=== PATIENT | female | born 1965 | race Caucasian/White ===

== ENCOUNTER → 2018-10-26 15:03 | Outpatient (CLI) | payer OTHER, SELFPAY ==
--- NOTE | 2018-10-26 15:10 | XR_ITS ---
EXAM: XR lumbar spine 2-3V HISTORY: ITS.REASON: Back pain ORDERING PHYSICIAN: Cash Eric PATIENT AGE: 53 years COMPARISON: None FINDINGS: Normal alignment. There is mild degenerative disc disease at L4-L5 and L5-S1. Small nature osteophyte also present at T12 and L3. No fracture or dislocation. No lytic or blastic change. IMPRESSION: Mild degenerative disc disease L4-5 and L5-S1
== END ==
PROVIDERS: PCP Emergency Medicine; Visit Provider Nurse Practitioner Family
DX: M54.5 Low back pain (principal)
CPT/HCPCS: 72100

== ENCOUNTER 2018-11-13 13:01 | Outpatient (RCR) | payer OTHER, SELFPAY ==
--- NOTE | 2018-11-13 14:25 | HMH.PTOPEV ---
PT Outpatient Evaluation Rehab PT Outpatient Evaluation Start: 11/13/18 13:11 Freq: Status: Active Protocol: Document 11/13/18 14:12 TEALAUREL (Rec: 11/13/18 14:24 NORBERT [id number]) Electronically Signed By Ming Mcleod, PT 11/13/18 14:12 Outpatient Therapy Subjective History Subjective History Patient is a 53 year old female presenting to outpatient PT with reports of chronic low back pain with RLE radicular symptoms down to the R foot. Pt reports hx of lumbar discectomy surgery in 2002. She reports previous rx includes acupuncture, physical therapy and massage therapy that has provided minimal relief. Pt experienced inc radicular symptoms with both lumbar flexion and extension, but main complaint is pain with sitting/bending/ lifting activities. Chief Complaint Pain,Stiff,Paresthesia, Weakness Symptom Type Ache,Throb,Sharp,Dull,Numbness ,Tingling Symptoms Relieved By Rest/Positioning Symptoms Aggravated By Sitting,Bending/Stooping, Lifting Prior Functional Limitations Lifting,Sitting,Bending/ Stooping Current Functional Limitations Lifting,Sitting,Bending/ Stooping Symptom Description Constant but Variable Level of pain today (0-10) 6 Pain scale - at its best (0-10) 4 Pain scale - at its worst (0-10) 9 Lumbopelvic Eval Posture Thoracic Spine Posture Standing Position Increased Kyphosis Lumbar Spine Posture Standing Position Decreased Lordosis Assistive device Assistive Devices None / NA Palapation tenderness bilateral lumbar spinal tenderness Yes: 3/4 paraspinal tenderness Yes: 3/4 buttock tenderness Yes: 2/4 Accessory Movement L2 right L3 right L4 right L5 right S1 right Range of Motion Lumbar Spine Active Flexion Range of 68 inc radic Motion (degrees) Lumbar Spine Active Extension Range of 12 inc radic Motion (degrees) Left Lumbar Spine Lateral Flexion Active 18 Range of Motion (degrees) Right Lumbar Spine Lateral Flexion 22 Active Range of Motion (degrees)
== END 2018-11-13 13:05 | disposition home or self-care (01) ==
LOC: PT 13:01
PROVIDERS: Visit Provider Nurse Practitioner Family
DX: M54.41 Lumbago with sciatica, right side (principal)
CPT/HCPCS: 97163

== ENCOUNTER 2020-02-19 21:06 | Emergency (ER) | payer MEDICAID, SELFPAY ==
[2020-02-19 21:23] VITALS: BP 162/99; PULSE 120; RESP 16; TEMP 36.8; O2SAT 97; BMI 28.3
[2020-02-19 21:30] VITALS: BP 119/83; PULSE 116; RESP 18; O2SAT 98
--- NOTE | 2020-02-19 21:32 | CT_ITS ---
PROCEDURE: CT ABDOMEN PELVIS W CON CLINICAL INDICATION: LLQ pain the Left lower quadrant pain with nausea, vomiting, diarrhea COMPARISON: No exams were available for comparison TECHNIQUE: IV Contrast: 75ML OPTIRAY 350 Oral Contrast None Axial images obtained with sagittal and coronal reformats. All CT scans at the facility use one or more dose reduction, viz: automated exposure control, ma/kV adjustment per patient size (including targeted exams where dose is matched to indication, i.e. head), or iterative reconstruction technique. FINDINGS: LOWER THORAX: No acute finding ABDOMEN & PELVIS: There is diffuse fatty liver infiltration with hepatomegaly. Liver measures 26 cm in transverse dimension. The spleen, adrenal glands, and pancreas have an unremarkable appearance. Gallbladder is somewhat distended. There is right renal cortical scarring. No renal or ureteral calculi. No hydronephrosis. No evidence of appendicitis or diverticulitis. No intestinal obstruction or free air. No acute bony anomalies. IMPRESSION: 1. Severe fatty liver with hepatomegaly. 2. Mildly distended gallbladder 3. Cortical scarring of the right kidney Dictated b Yoshi Thornton MD 02/20/2020 08:50 Yoshi Thornton MD in [place] 02/20/2020 08:50
[2020-02-19 21:41] LABS: Microscopic, Urine URINE MICROSCOPIC (MICROSCOPIC)
[2020-02-19 21:50] LABS: Appearance,Urine CLEAR (Clear); Basophils # 0.1 K/mm3 (0-0.2); Basophils % 1.1 % (0.1-2.0); Bilirubin,Urine Negative (Negative); Blood, Urine 1+ (Negative); Color,Urine YELLOW (Yellow); Eosinophils # 0.2 K/mm3 (0.0-0.4); Eosinophils % 1.3 % (0.1-12.0); Glucose,Urine (UA) Negative (Negative); Hemoglobin 15.8 g/dL (12.2-16.2); Ketones,Urine Negative (Negative); Leukocyte Esterase,Urine TRACE (Negative); Lymphocytes # 2.5 K/mm3 (0.7-4.5); Lymphocytes % 20.7 % (10-50); Mean Corpuscular HGB Conc 33.7 g/dL (31.8-35.4); Mean Corpuscular Hemoglobin 34.3 pg (27.0-31.2); Mean Corpuscular Volume 101.7 fl (81-99); Mean Platelet Volume 8.6 fl (7.4-10.4); Monocytes # 0.6 K/mm3 (0.1-1.0); Monocytes % 5.2 % (1.7-9.3); Neutrophils # 8.8 K/mm3 (1.8-7.8); Neutrophils % 71.7 % (37.0-80.0); Nitrate,Urine Negative (Negative); PH,Urine 7.5 (5.0-8.5); Platelet Count 284 K/mm3 (142-424); Protein,Urine Negative (Negative); Red Blood Count 4.62 M/mm3 (4.20-5.40); Red Cell Distribution Width 14.2 % (11.5-17.5); Specific Gravity, Urine <= 1.005 (1.005-1.030); Urobilinogen,Urine 0.2 EU/dl (0.2); White Blood Count 12.3 K/mm3 (4.8-10.8)
[2020-02-19 21:51] LABS: Alanine Aminotransferase 112 U/L (12-78); Albumin Level 4.2 g/dl (3.5-5.0); Albumin/Globulin Ratio 1.1 (1.1-1.8); Alkaline Phosphatase 255 U/L (38-126); Amylase 86 U/L (30-110); Anion Gap 18.7 mEq/L (5-15); Aspartate Amino Transferase 294 U/L (14-36); Blood Urea Nitrogen 4 mg/dl (7-17); Calcium 9.5 mg/dl (8.4-10.2); Carbon Dioxide 31 mmol/L (22.0-30.0); Chloride 91 mmol/L (98-107); Creatinine Clearance Estimated 108 mL/min (50-200); Estimated Glomerular Filt Rate 88 ml/min (>60); GFR (African American) 106 ML/MIN (>60); Globulin 3.7 g/dL (1.3-3.2); Glucose 97 mg/dl (74-100); Lipase 276 U/L (23-300); Sodium 138 mmol/L (136-145); Total Protein,Serum 7.9 g/dl (6.3-8.2)
[2020-02-19 21:52] LABS: Ethyl Alcohol 163 mg/dl (0-10); Potassium 2.7 mmoL/L (3.5-5.1)
[2020-02-19 21:55] LABS: Mucus,Urine 1+ /lpf; RBC,Urine Occasional #/hpf (0-3); WBC,Urine Occasional #/hpf (0-3)
[2020-02-19 22:01] LABS: Amphetamine/Metha Screen,Urine Negative ng/ml (<1000); Barbiturates Screen,Urine Negative ng/ml (<200)
[2020-02-19 22:02] LABS: Benzodiazepines Screen,Urine Positive ng/ml (<200)
--- NOTE | 2020-02-19 22:02 | HMH.EDNVD ---
ED Disposition Clinical Impression: Hypokalemia, Transaminitis Abdominal pain Qualifiers: Abdominal location: epigastric Qualified Code(s): R10.13 - Epigastric pain Alcohol intoxication Qualifiers: Complication of substance-induced condition: uncomplicated Qualified Code(s): F10.920 - Alcohol use, unspecified with intoxication, uncomplicated Disposition: Home, Self-Care Condition on Discharge: Good Instructions: DI for Acute Abdomen Additional Instructions: stop alcohol and stop motrin and call pcp for follow up Referrals: PCP,No [Primary Care Provider] - - Critical Care Critical Care Time: No Attestation: On 02/19/20, the high probability of a clinically significant, sudden or life threatening deterioration of the following system(s) required my full and direct attention, intervention and personal management. The time I documented below is in addition to time spent performing reported procedures but includes the following listed in this critical care notation. Medical Decision Making - Medical Records Medical records reviewed: Yes: I reviewed the patient's medical records. - Sen Inquiry Pt receiving controlled substance: No Vital Signs: 02/19/20 21:23 02/19/20 21:30 Temperature 98.3 F Temperature Source Oral Pulse Rate [Right] 120 H 116 H Respiratory Rate 16 18 Blood Pressure [Right Arm] 162/99 H 119/83 Blood Pressure Mean [Right Arm] 120 95 Blood Pressure Source [Right Arm] Automatic Cuff Automatic Cuff Blood Pressure Position [Right Arm] Sitting Supine 02 Sat by Pulse Oximetry 97 98 Oxygen Delivery Method Room Air Room Air - Lab Data Lab results reviewed: Yes: I reviewed the patient's lab results. Lab Results 02/19/20 21:15: Urine Color Yellow, Urine Appearance Clear, Urine pH 7.5, Ur Specific [place] <= 1.005, Urine Protein Negative, Urine Glucose (UA) Negative, Urine Ketones Negative, Urine Blood 1+, Urine Nitrate Negative, Urine Bilirubin Negative, Urine Urobilinogen 0.2, Ur Leukocyte Esterase Trace, Urine RBC Occasional, Urine WBC Occasional, Ur Squamous Epith Cells 10-20, Urine Mucus 1+ 02/19/20 21:15: WBC 12.3 H, RBC 4.62, Hgb 15.8, Hct 47.0, MCV 101.7 H, MCH 34.3 H, MCHC 33.7, RDW 14.2, Plt Count 284, MPV 8.6, Neut % (Auto) 71.7, Lymph % (Auto) 20.7, [place] % (Auto) 5.2, Eos % (Auto) 1.3, Baso % (Auto) 1.1, Neut # (Auto) 8.8 H, Lymph # (Auto) 2.5, [place] # (Auto) 0.6, Eos # (Auto) 0.2, Baso # (Auto) 0.1, ESR 16 02/19/20 21:15: Sodium 138, Potassium 2.7 L*, Chloride 91 L, Carbon Dioxide 31 H, Anion Gap 18.7 H, BUN 4 L, Creatinine 0.70, Estimated Creat Clear 108, Estimated GFR 88, Est GFR ( Amer) 106, Glucose 97, Calcium 9.5, Total Bilirubin 1.0, AST 294 H, ALT 112 H, Alkaline Phosphatase 255 H, C-Reactive Protein 21.0 H, Total Protein 7.9, Albumin 4.2, Globulin 3.7 H, Albumin/Globulin Ratio 1.1, Amylase 86, Lipase 276 02/19/20 21:15: Urine Opiates Screen Positive H, Urine Methadone Screen Negative, Ur Barbituates Screen Negative, Ur Phencyclidine Scrn Negative, Ur Amphetamines Screen Negative, U Benzodiazepines Scrn Positive H, Urine Cocaine Screen Negative, U Marijuana (THC) Screen Positive H 02/19/20 21:15: Plasma/Serum Alcohol 163 H 02/19/20 21:25: Magnesium 1.8 Result diagrams: 02/19/20 21:15 02/19/20 21:15 Orders (Tests/Meds): ED MEDICATIONS Generic Name Dose Route Start Last Admin Trade Name Freq PRN Reason Stop Dose Admin Sodium Chloride 1,000 mls @ 999 mls/hr 02/19/20 21:45 02/19/20 22:19 Sod Chlor 0.9% 1000ml Bag IV 02/19/20 22:45 999 mls/hr .Q1H1M NICOLE Administration Sodium Chloride 8 ml 02/19/20 21:32 Sodium Chloride 0.9% 10ml Vial IV 03/20/20 21:31 NEEDED PRN dilute pepcid Discontinued Medications Generic Name Dose Route Start Last Admin Trade Name Freq PRN Reason Stop Dose Admin Famotidine 20 mg 02/19/20 21:32 02/19/20 22:18 Pepcid 20mg/2ml Vial IV 02/19/20 21:33 20 mg ONCE ONE Administration Ioversol 75 ml 0
[2020-02-19 22:03] LABS: Cannabinoid Screen,Urine Positive ng/ml (<50); Cocaine Screen,Urine Negative ng/ml (<300)
[2020-02-19 22:04] LABS: Methadone Screen,Urine Negative ng/ml (<300)
[2020-02-19 22:05] LABS: Opiate Screen,Urine Positive ng/ml (<300); Phencyclidine Screen,Urine Negative ng/ml (<25)
[2020-02-19 22:24] LABS: Magnesium 1.8 mg/dl (1.6-2.3)
[2020-02-19 22:39] LABS: Erythrocyte Sedimentation Rate 16 mm/hr (0-30)
[2020-02-19 23:01] VITALS: BP 126/72; PULSE 98; RESP 16; TEMP 36.8; O2SAT 98
== END 2020-02-19 23:07 | disposition home or self-care (01) ==
PROVIDERS: Emergency Provider Emergency Medicine
DX: E87.6 Hypokalemia (principal); R74.0 Nonspecific elevation of levels of transaminase and lactic acid dehydrogenase [LDH]; F10.920 Alcohol use, unspecified with intoxication, uncomplicated; I10 Essential (primary) hypertension; F41.9 Anxiety disorder, unspecified; F17.210 Nicotine dependence, cigarettes, uncomplicated; Z79.899 Other long term (current) drug therapy
CPT/HCPCS: 74177; 80053; 80305; 81001; 82150; 83690; 83735; 85025; 85651; 86140; 96365; 96375; 99284; J2405; Q9967

== ENCOUNTER 2020-04-26 17:39 | Emergency (ER) | payer MEDICAID, SELFPAY ==
--- NOTE | 2020-04-26 17:33 | ECG_ITS ---
APPROVED REPORT Exam: Resting ECG HR:107 bpm ECG Measurements Heart Rate 107 AXES [place] 150 P 54 QRSd 76 QRS 43 QT 354 T 54 QTc 472 Conclusion Sinus tachycardia Otherwise normal ECG Electronically signed by : Wesley Rebolledo, 04/30/2020 09:46:28
[2020-04-26 17:40] VITALS: BP 140/83; PULSE 109; RESP 18; TEMP 36.9; O2SAT 97; BMI 30.1
--- NOTE | 2020-04-26 17:42 | XR_ITS ---
PROCEDURE: XR CHEST PORTABLE CLINICAL HISTORY: CP Chest pain COMPARISON: No exams were available for comparison FINDINGS: The cardiomediastinal silhouette and pulmonary vascularity are within normal limits. The lungs are clear without infiltrates, suspicious nodules, or pleural effusions. There is an old left 5th rib fracture. IMPRESSION: No acute findings. Dictated by: Yoshi Thornton MD 04/27/2020 05:42 Yoshi Thornton MD in [place] 04/27/2020 05:42
--- NOTE | 2020-04-26 17:42 | HMH.EDGENADL ---
ED Disposition Clinical Impression: Hypokalemia Chest pain Qualifiers: Chest pain type: unspecified Qualified Code(s): R07.9 - Chest pain, unspecified Disposition: Home, Self-Care Condition on Discharge: Good Instructions: DI for Atypical Chest Pain Additional Instructions: Take magnesium and potassium as prescribed. Follow a regular diet. Take nonsteroidal anti-inflammatory drugs for any pain. Immediate return if recurrent pain, shortness of breath, nausea/vomiting, other concerning symptoms. Prescriptions: Magnesium Oxide [Mag-Ox 400mg Tab] 400 mg PO BID 2 Days #4 tab Transmission Status: Pending to [facility] Potassium Chloride 40 meq PO DAILY 3 Days #6 tablet.er Transmission Status: Pending to [facility] Referrals: Osvaldo Tsang MD [Primary Care Provider] - - Critical Care Critical Care Time: No Attestation: On , the high probability of a clinically significant, sudden or life threatening deterioration of the following system(s) required my full and direct attention, intervention and personal management. The time I documented below is in addition to time spent performing reported procedures but includes the following listed in this critical care notation. Medical Decision Making - Medical Records Medical records reviewed: Yes: I reviewed the patient's medical records. - Sen Inquiry Pt receiving controlled substance: No Vital Signs: 04/26/20 17:40 04/26/20 18:51 Temperature 98.4 F Temperature Source Oral Pulse Rate [Right Radial] 109 H 96 H Respiratory Rate 18 Blood Pressure [Right Arm] 140/83 114/79 Blood Pressure Mean [Right Arm] 102 90 Blood Pressure Source [Right Arm] Automatic Cuff Automatic Cuff Blood Pressure Position [Right Arm] Sitting Sitting 02 Sat by Pulse Oximetry 97 100 Oxygen Delivery Method Room Air Room Air - Lab Data Lab Results 04/26/20 17:41: WBC 14.3 H, RBC 3.74 L, Hgb 12.8, Hct 40.0, MCV 106.8 H, MCH 34.2 H, MCHC 32.0, RDW 15.7, Plt Count 454 H, MPV 7.8, Neut % (Auto) 83.4 H, Lymph % (Auto) 8.9 L, [place] % (Auto) 4.8, Eos % (Auto) 2.2, Baso % (Auto) 0.7, Neut # (Auto) 12.0 H, Lymph # (Auto) 1.3, [place] # (Auto) 0.7, Eos # (Auto) 0.3, Baso # (Auto) 0.1 04/26/20 17:41: Sodium 135 L, Potassium 2.5 L*, Chloride 94 L, Carbon Dioxide 27, Anion Gap 16.5 H, BUN 7, Creatinine 0.70, Estimated Creat Clear 114, Estimated GFR 88, Est GFR ( Amer) 106, Glucose 119 H, Calcium 10.2, Troponin I < 0.01 04/26/20 17:41: D-Dimer 0.42 04/26/20 17:41: Magnesium 1.5 L Result diagrams: 04/26/20 17:41 04/26/20 17:41 Orders (Tests/Meds): ED MEDICATIONS Discontinued Medications Generic Name Dose Route Start Last Admin Trade Name Freq PRN Reason Stop Dose Admin Ketorolac Tromethamine 15 mg 04/26/20 17:47 04/26/20 18:17 Ketorolac 30mg/Ml Vial IV 04/26/20 17:48 15 mg ONCE ONE Administration Potassium Chloride 40 meq 04/26/20 18:11 04/26/20 18:14 Potassium Chloride 20meq Tab PO 04/26/20 18:12 40 meq ONCE ONE Administration ORDERS Category Date Time Status XR chest portable Stat Exams 04/26/20 17:42 Taken Troponin I Q3H Lab 04/26/20 20:45 Ordered Troponin I Q3H Lab 04/26/20 23:45 Ordered - ECG Data Tracing #1 I reviewed this ECG and interpreted as documented below: EKG demonstrates sinus tachycardia at a rate of 107 bpm; no acute ST elevation/depression; QTC 472 ms; QRS 76 ms Medical Decision Narrative: Patient presents the emergency department with chest pain. EKG obtained immediately upon arrival demonstrates no acute ST elevation/depression. Suspicion for ACS is rather low. No aspirin administered at this time. She does have reproducible chest pain so costochondritis is on the differential but other more urgent/emergent diagnoses considered including ACS versus pulmonary embolus versus aortic etiology versus pneumothorax versus anemia. Cardiac enzyme test will be obtained to ensure no subendocardial i
[2020-04-26 17:52] LABS: Basophils # 0.1 K/mm3 (0-0.2); Basophils % 0.7 % (0.1-2.0); Eosinophils # 0.3 K/mm3 (0.0-0.4); Eosinophils % 2.2 % (0.1-12.0); Hemoglobin 12.8 g/dL (12.2-16.2); Lymphocytes # 1.3 K/mm3 (0.7-4.5); Lymphocytes % 8.9 % (10-50); Mean Corpuscular Hemoglobin 34.2 pg (27.0-31.2); Mean Corpuscular Volume 106.8 fl (81-99); Mean Platelet Volume 7.8 fl (7.4-10.4); Monocytes # 0.7 K/mm3 (0.1-1.0); Monocytes % 4.8 % (1.7-9.3); Neutrophils % 83.4 % (37.0-80.0); Platelet Count 454 K/mm3 (142-424); Red Blood Count 3.74 M/mm3 (4.20-5.40); Red Cell Distribution Width 15.7 % (11.5-17.5); White Blood Count 14.3 K/mm3 (4.8-10.8)
[2020-04-26 18:00] LABS: Anion Gap 16.5 mEq/L (5-15); Blood Urea Nitrogen 7 mg/dl (7-17); Calcium 10.2 mg/dl (8.4-10.2); Carbon Dioxide 27 mmol/L (22.0-30.0); Chloride 94 mmol/L (98-107); Creatinine Clearance Estimated 114 mL/min (50-200); Estimated Glomerular Filt Rate 88 ml/min (>60); GFR (African American) 106 ML/MIN (>60); Glucose 119 mg/dl (74-100); Sodium 135 mmol/L (136-145)
[2020-04-26 18:04] LABS: D-Dimer 0.42 ug/mL (0.15-8.0)
[2020-04-26 18:10] LABS: Potassium 2.5 mmoL/L (3.5-5.1)
--- NOTE | 2020-04-26 18:10 | PC.NURSE ---
notified ER of critical potassium level
[2020-04-26 18:14] LABS: Troponin I < 0.01 ng/ml (0.00-0.034)
[2020-04-26 18:24] LABS: Magnesium 1.5 mg/dl (1.6-2.3)
[2020-04-26 18:51] VITALS: BP 114/79; PULSE 96; O2SAT 100
--- NOTE | 2020-04-26 20:26 | CT_ITS ---
PROCEDURE: CT ABDOMEN PELVIS W CON CLINICAL INDICATION: epigastric pain COMPARISON: CT CT ABDOMEN PELVIS W CON from 02/19/2020 TECHNIQUE: IV Contrast: 75ML OPTIRAY 350 Oral Contrast None Axial images obtained with sagittal and coronal reformats. All CT scans at the facility use one or more dose reduction, viz: automated exposure control, ma/kV adjustment per patient size (including targeted exams where dose is matched to indication, i.e. head), or iterative reconstruction technique. FINDINGS: LOWER THORAX: No acute finding ABDOMEN & PELVIS: Diffuse fatty liver infiltration with hepatomegaly. The liver measures 21 cm cephalad caudad and 25 cm transverse. The spleen has an unremarkable appearance. The pancreas and adrenal glands are unremarkable. There is diffuse bilateral renal cortical lobulation greater on the right compared to the left which may represent renal scarring. No renal or ureteral calculi or hydronephrosis. No radiopaque gallstones. No intestinal obstruction or free air. No evidence of appendicitis. There are few scattered colonic diverticula but no evidence of diverticulitis. There is some mild thickening of the sigmoid colon. No acute bony findings. No pelvic mass or abnormal fluid collection.. IMPRESSION: 1. Mild thickened sigmoid colon which could be due to nondistention or mild colitis. 2. Hepato megaly with diffuse fatty liver. Dictated by: Yoshi Thornton MD 04/27/2020 06:19 Yoshi Thornton MD in [place] 04/27/2020 06:19
[2020-04-26 20:56] LABS: Coronavirus 19 IgG Antibody Negative (Negative); Coronavirus 19 IgM Antibody Negative (Negative)
[2020-04-26 21:18] LABS: Troponin I < 0.01 ng/ml (0.00-0.034)
[2020-04-26 21:27] LABS: Amylase 68 U/L (30-110)
[2020-04-26 21:28] LABS: Alanine Aminotransferase 73 U/L (12-78); Albumin Level 3.4 g/dl (3.5-5.0); Alkaline Phosphatase 312 U/L (38-126); Aspartate Amino Transferase 193 U/L (14-36); Bilirubin,Direct 0.4 mg/dl (0.0-0.4); Bilirubin,Indirect 0.5 mg/dL (0.0-0.9); Bilirubin,Total 0.9 mg/dl (0.2-1.3); Bilirubin,Unconjugated 0.4 mg/dL (0.0-1.1); Total Protein,Serum 6.6 g/dl (6.3-8.2)
[2020-04-26 21:38] LABS: Lipase 651 U/L (23-300)
[2020-04-26 22:02] VITALS: BP 110/73; PULSE 100; RESP 16; TEMP 36.9; O2SAT 100
== END 2020-04-26 22:05 | disposition home or self-care (01) ==
PROVIDERS: Emergency Provider Emergency Medicine; PCP Emergency Medicine
DX: K85.90 Acute pancreatitis without necrosis or infection, unspecified (principal); E87.6 Hypokalemia; R07.9 Chest pain, unspecified; I10 Essential (primary) hypertension; F41.9 Anxiety disorder, unspecified; F17.210 Nicotine dependence, cigarettes, uncomplicated; Z01.84 Encounter for antibody response examination
CPT/HCPCS: 36415; 71045; 74177; 80048; 80076; 82150; 83690; 83735; 84484; 85025; 85378; 86328; 93005; 96374; 96375; 99283; Q9967

== ENCOUNTER 2020-05-10 16:12 | Observation (INO) | payer MEDICAID, SELFPAY ==
--- NOTE | 2020-05-10 16:22 | CT_ITS ---
PROCEDURE: CT HEAD/BRAIN WO CON CLINICAL INDICATION: headache Headache COMPARISON: CT HDWO CT HEAD W/O CONTRAST from 01/15/2014 TECHNIQUE: Axial images obtained. All CT scans at the facility use one or more dose reduction, viz: automated exposure control, ma/kV adjustment per patient size (including targeted exams where dose is matched to indication, i.e. head), or iterative reconstruction technique. FINDINGS: No midline shift, mass effect, intracranial hemorrhage, hydrocephalus, or extra-axial fluid collection is evident. There is mild cortical volume loss. In the roof of the 3rd ventricle there is an ovoid 6 mm hyperdensity consistent with a colloid cyst. No hydronephrosis. The calvarium has an unremarkable appearance. No mastoid effusion. Small air-fluid level is present in the sphenoid sinus on the left. There is a defect within the medial wall the left orbit consistent with an old fracture. IMPRESSION: 1. No acute intracranial finding . 2. 6 mm colloid cyst. No hydronephrosis. 3. Air-fluid level in the sphenoid sinus on the left Dictated by: Yoshi Thornton MD 05/11/2020 06:34 Yoshi Thornton MD in [place] 05/11/2020 06:34
--- NOTE | 2020-05-10 16:22 | CT_ITS ---
PROCEDURE: CT ABDOMEN PELVIS WO CON CLINICAL INDICATION: upper abd pain Upper abdominal pain COMPARISON: CT CT ABDOMEN PELVIS W CON from 04/26/2020 TECHNIQUE: Axial images obtained with sagittal and coronal reformats. All CT scans at the facility use one or more dose reduction, viz: automated exposure control, ma/kV adjustment per patient size (including targeted exams where dose is matched to indication, i.e. head), or iterative reconstruction technique. FINDINGS: LOWER THORAX: No acute finding ABDOMEN & PELVIS: There is diffuse fatty liver infiltration with hepatomegaly. In the left hepatic lobe anteriorly there is a 9 mm area of focal decreased attenuation. A similar 8 mm area of decreased attenuation is present in the right hepatic lobe. The gallbladder is distended. The spleen, adrenal glands, pancreas, and kidneys have an unremarkable appearance. No intestinal obstruction or free air. No evidence of appendicitis. There are few colonic diverticula but no evidence of diverticulitis. There are degenerative changes in the lumbar spine. IMPRESSION: 1. Hepatomegaly with fatty liver with 2 foci of decreased attenuation which may be due to more prominent areas of fatty infiltration or space-occupying lesions. MRI may provide further evaluation without and with enhancement. 2. Hydropic gallbladder 3. Other nonacute findings as described above. Dictated by: Yoshi Thornton MD 05/11/2020 06:26 Yoshi Thornton MD in [place] 05/11/2020 06:26
[2020-05-10 16:25] VITALS: BP 124/84; PULSE 109; RESP 17; TEMP 36.6; O2SAT 99; BMI 28.5
--- NOTE | 2020-05-10 16:26 | HMH.EDGENADL ---
ED Disposition Clinical Impression: Dehydration Abdominal pain Qualifiers: Abdominal location: upper abdomen, unspecified Qualified Code(s): R10.10 - Upper abdominal pain, unspecified Disposition: Admitted As Inpatient Condition on Discharge: Good Referrals: Osvaldo Tsang MD [Primary Care Provider] - - Critical Care Critical Care Time: No Attestation: On 05/10/20, the high probability of a clinically significant, sudden or life threatening deterioration of the following system(s) required my full and direct attention, intervention and personal management. The time I documented below is in addition to time spent performing reported procedures but includes the following listed in this critical care notation. Medical Decision Making - Medical Records Medical records reviewed: Yes: I reviewed the patient's medical records. - Sen Inquiry Pt receiving controlled substance: No Vital Signs: 05/10/20 16:25 05/10/20 17:08 Temperature 97.8 F Temperature Source Oral Pulse Rate [Right Brachial] 109 H 103 H Respiratory Rate 17 Blood Pressure [Right Arm] 124/84 125/90 Blood Pressure Mean [Right Arm] 97 101 Blood Pressure Source [Right Arm] Automatic Cuff Automatic Cuff Blood Pressure Position [Right Arm] Sitting Sitting 02 Sat by Pulse Oximetry 99 99 Oxygen Delivery Method Room Air Room Air - Lab Data Lab results reviewed: Yes: I reviewed the patient's lab results. Lab Results 05/10/20 16:43: WBC 14.2 H, RBC 3.53 L, Hgb 12.6, Hct 37.0, MCV 104.9 H, MCH 35.6 H, MCHC 33.9, RDW 16.1, Plt Count 394, MPV 8.0, Neut % (Auto) 89.4 H, Lymph % (Auto) 6.0 L, [place] % (Auto) 3.6, Eos % (Auto) 0.7, Baso % (Auto) 0.3, Neut # (Auto) 12.7 H, Lymph # (Auto) 0.9, [place] # (Auto) 0.5, Eos # (Auto) 0.1, Baso # (Auto) 0.1, Total Counted 100, Neutrophils % (Manual) 91 H, Lymphocytes % (Manual) 5 L, Monocytes % (Manual) 3, Eosinophils % (Manual) 1, Platelet Estimate Normal, Anisocytosis 1+, Macrocytosis 1+ 05/10/20 16:43: Sodium 135 L, Potassium 2.5 L*, Chloride 92 L, Carbon Dioxide 28, Anion Gap 17.5 H, BUN 3 L, Creatinine 0.70, Estimated Creat Clear 108, Estimated GFR 88, Est GFR ( Amer) 106, Glucose 138 H, Calcium 9.6, Total Bilirubin 1.3, AST 227 H, ALT 78, Alkaline Phosphatase 365 H, Troponin I < 0.01, Total Protein 7.4, Albumin 3.9, Globulin 3.5 H, Albumin/Globulin Ratio 1.1, Lipase 279 05/10/20 16:43: SARS-CoV-2 IgG Ab (Rapid) Negative, SARS-CoV-2 IgM Ab (Rapid) Negative Result diagrams: 05/10/20 16:43 05/10/20 16:43 Orders (Tests/Meds): ED MEDICATIONS Generic Name Dose Route Start Last Admin Trade Name Freq PRN Reason Stop Dose Admin Acetaminophen 650 mg 05/10/20 17:44 Acetaminophen 325mg Tab PO 06/09/20 17:43 Q4HP PRN As Needed for Fever or Pain Sodium Chloride 1,000 mls @ 999 mls/hr 05/10/20 17:15 05/10/20 17:17 Sod Chlor 0.9% 1000ml Bag IV 05/10/20 18:15 999 mls/hr .Q1H1M NICOLE Administration Sodium Chloride 1,000 mls @ 100 mls/hr 05/10/20 17:45 Sod Chlor 0.9% 1000ml Bag IV 06/09/20 17:44 .Q10H NICOLE Ketorolac Tromethamine 30 mg 05/10/20 17:44 Ketorolac 30mg/Ml Vial IV 05/15/20 17:43 Q6HP PRN Moderate Pain Nicotine 21 mg 05/10/20 17:44 Nicotine 21mg/24hr Patch TD 06/09/20 17:43 DAILYP PRN Nicotine Cravings Ondansetron HCl 4 mg 05/10/20 17:44 Ondansetron 4mg/2ml Vial IV 06/09/20 17:43 Q8HP PRN Nausea Pantoprazole Sodium 40 mg 05/11/20 09:00 Pantoprazole 40mg Tablet PO 06/10/20 08:59 DAILY NICOLE Sodium Chloride 8 ml 05/10/20 16:23 05/10/20 17:00 Sodium Chloride 0.9% 10ml Vial IV 06/09/20 16:22 8 ml NEEDED PRN Administration dilute pepcid Triamterene/HCTZ 1 each 05/11/20 09:00 Hctz 25mg/Triamterene 37.5mg Tablet PO 06/10/20 08:59 DAILY NICOLE Discontinued Medications Generic Name Dose Route Start Last Admin Trade Name Freq PRN Reason Stop Dose Admin Famotidine 20 mg
--- NOTE | 2020-05-10 16:32 | ECG_ITS ---
APPROVED REPORT Exam: Resting ECG HR:105 bpm ECG Measurements Heart Rate 105 AXES ID 148 P 61 QRSd 80 QRS 44 QT 380 T 56 QTc 502 Conclusion Sinus tachycardia Possible Left atrial enlargement Borderline ECG Electronically signed by : Wesley Rebolledo, 05/11/2020 05:35:00
--- NOTE | 2020-05-10 16:37 | XR_ITS ---
PROCEDURE: XR CHEST PORTABLE CLINICAL HISTORY: epigastric pain Chest pain COMPARISON: CR XR CHEST PORTABLE from 04/26/2020 FINDINGS: The cardiomediastinal silhouette and pulmonary vascularity are within normal limits. The lungs are clear without infiltrates, suspicious nodules, or pleural effusions. Well-circumscribed calcific density is noted along the superior aspect of the left acromion nonspecific IMPRESSION: No acute findings. Dictated by: Yoshi Thornton MD 05/10/2020 19:18 Yoshi Thornton MD in [place] 05/10/2020 19:18
--- NOTE | 2020-05-10 16:43 | PC.NURSE ---
pt gone to rad
[2020-05-10 16:51] LABS: Basophils # 0.1 K/mm3 (0-0.2); Basophils % 0.3 % (0.1-2.0); Eosinophils # 0.1 K/mm3 (0.0-0.4); Eosinophils % 0.7 % (0.1-12.0); Hemoglobin 12.6 g/dL (12.2-16.2); Lymphocytes # 0.9 K/mm3 (0.7-4.5); Mean Corpuscular HGB Conc 33.9 g/dL (31.8-35.4); Mean Corpuscular Hemoglobin 35.6 pg (27.0-31.2); Mean Corpuscular Volume 104.9 fl (81-99); Monocytes # 0.5 K/mm3 (0.1-1.0); Monocytes % 3.6 % (1.7-9.3); Neutrophils # 12.7 K/mm3 (1.8-7.8); Neutrophils % 89.4 % (37.0-80.0); Platelet Count 394 K/mm3 (142-424); Red Blood Count 3.53 M/mm3 (4.20-5.40); Red Cell Distribution Width 16.1 % (11.5-17.5); White Blood Count 14.2 K/mm3 (4.8-10.8)
[2020-05-10 16:54] LABS: Chloride 92 mmol/L (98-107)
[2020-05-10 16:55] LABS: MANUAL DIFFERENTIAL MANUAL DIFFERENTIAL (MANUAL DIFF); Sodium 135 mmol/L (136-145)
[2020-05-10 16:57] LABS: Alanine Aminotransferase 78 U/L (12-78); Alkaline Phosphatase 365 U/L (38-126); Aspartate Amino Transferase 227 U/L (14-36); Bilirubin,Total 1.3 mg/dl (0.2-1.3); Blood Urea Nitrogen 3 mg/dl (7-17); Creatinine Clearance Estimated 108 mL/min (50-200); Estimated Glomerular Filt Rate 88 ml/min (>60); GFR (African American) 106 ML/MIN (>60)
[2020-05-10 16:58] LABS: Albumin Level 3.9 g/dl (3.5-5.0); Albumin/Globulin Ratio 1.1 (1.1-1.8); Anion Gap 17.5 mEq/L (5-15); Calcium 9.6 mg/dl (8.4-10.2); Carbon Dioxide 28 mmol/L (22.0-30.0); Globulin 3.5 g/dL (1.3-3.2); Glucose 138 mg/dl (74-100); Lipase 279 U/L (23-300); Total Protein,Serum 7.4 g/dl (6.3-8.2)
[2020-05-10 17:05] LABS: Potassium 2.5 mmoL/L (3.5-5.1)
--- NOTE | 2020-05-10 17:07 | PC.NURSE ---
ER notified of critical potassium
[2020-05-10 17:08] VITALS: BP 125/90; PULSE 103; O2SAT 99
--- NOTE | 2020-05-10 17:08 | PC.NURSE ---
Pt returned from rad.
[2020-05-10 17:23] LABS: Troponin I < 0.01 ng/ml (0.00-0.034)
[2020-05-10 17:27] LABS: Anisocytosis 1+; Eosinophils % 1 % (0-3); Lymphocytes % 5 % (10-50); Macrocytosis 1+; Monocytes % 3 % (2-9); Neutrophils % 91 % (42-76); Platelet Estimate Normal; Total Cells Counted 100
[2020-05-10 17:37] LABS: Coronavirus 19 IgG Antibody Negative (Negative); Coronavirus 19 IgM Antibody Negative (Negative)
--- NOTE | 2020-05-10 17:51 | PC.NURSE ---
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
[2020-05-10 18:04] VITALS: BP 110/78; PULSE 108; O2SAT 100
[2020-05-10 18:14] VITALS: BP 110/78; PULSE 105; RESP 17; TEMP 36.6; O2SAT 100
[2020-05-10 18:30] VITALS: BP 116/86; PULSE 106; RESP 20; TEMP 36.9; O2SAT 100; BMI 28.3
--- NOTE | 2020-05-10 19:13 | PC.NURSE ---
report given to dorina
[2020-05-10 20:00] VITALS: BP 111/66; PULSE 107; RESP 19; TEMP 36.8; O2SAT 99
[2020-05-10 21:03] LABS: Ethyl Alcohol < 10 mg/dl (0-10)
[2020-05-10 22:02] LABS: Microscopic, Urine URINE MICROSCOPIC (MICROSCOPIC)
[2020-05-10 22:08] LABS: Appearance,Urine CLEAR (Clear); Bilirubin,Urine Negative (Negative); Blood, Urine 1+ (Negative); Color,Urine YELLOW (Yellow); Glucose,Urine (UA) Negative (Negative); Ketones,Urine Negative (Negative); Leukocyte Esterase,Urine TRACE (Negative); Nitrate,Urine POSITIVE (Negative); Protein,Urine Negative (Negative); Specific Gravity, Urine 1.015 (1.005-1.030)
[2020-05-10 22:16] LABS: Benzodiazepines Screen,Urine Negative ng/ml (<200)
[2020-05-10 22:17] LABS: Amphetamine/Metha Screen,Urine Negative ng/ml (<1000)
[2020-05-10 22:18] LABS: Barbiturates Screen,Urine Negative ng/ml (<200); Cannabinoid Screen,Urine Positive ng/ml (<50)
[2020-05-10 22:19] LABS: Cocaine Screen,Urine Negative ng/ml (<300); Methadone Screen,Urine Negative ng/ml (<300)
[2020-05-10 22:20] LABS: Opiate Screen,Urine Negative ng/ml (<300)
[2020-05-10 22:21] LABS: Phencyclidine Screen,Urine Negative ng/ml (<25)
[2020-05-10 23:05] LABS: Bacteria,Urine 3+ /lpf
--- NOTE | 2020-05-10 23:11 | HMH.HP ---
*Admission Date: 05/10/20 *Chief complaint: abd pain *History of present illness: this pt presented to the [facility] office with abd pain -she had been in the [facility] ed a few weeks ago with abd pain but declined admit at that time- she has since had daily pain with no melena and dec po intake - she feels weak and reports abd pain has increased - pt was seen in the ed - Past medical history significant for hypertension, current smoker who presents to the emergency department for upper abdominal pain over the last several weeks. The pain is worse at night when she lies down. She does not regularly take a PPI or H2 crystal and has never been specifically diagnosed with GERD or gastritis. She has episodes of nausea in association with the abdominal pain. The pain will radiate up into her chest sometimes, again worse at night. Also complains of headache that primarily occurs at night. She has complaints of a cold sensation in her feet at night as well has general aches and pains throughout her lower extremities all the time. There did not seem to be any other exacerbating or alleviating factors other than her symptoms being worse at night. He saw Dr. Tsang today who sent her to the admission for further testing and admission. Of note, patient is prescribed potassium, but has not been taking this medication. pt was admitted for eval and treatment [facility] History I have reviewed the patient's past medical history: Yes Medical History: Reports:: Anxiety, Hypertension Denies:: Cancer, Chronic Obstructive Pulmonary Disease (COPD), Diabetes Mellitus Type 1, Diabetes Mellitus Type 2, Hepatitis, Internal Pacemaker, Pulmonary Embolism, Seizures, Transient Ischemic Attacks (TIA), Urinary Tract Infection *Have you ever received a pneumonia vaccine?: No *Have you received a flu vaccine this season?: No Other Medical History: Reports: Arthritis, Sinus Problems Laterality Cases: Left: Arthroscopy Shoulder, Bilateral: Other Other Surgeries: Yes: Other (back surgery). No: Pacemaker Amputation: No Fractures: No - *Social History Last grade of school completed: GED Smoking Status: Current every day smoker Tobacco Type: cigarettes # Packs/Day (cigarettes): 1 Alcohol Intake: former Alcohol Intake Frequency:: other Substance Use Type: marijuana, opiates, prescription drug, former substance user *Occupational Status:: unemployed Housing: house Household Members: none *Travel in the last 8 weeks: None - Psychiatric History Pschychiatric History:: Reports:: Anxiety Family Hx:: Unable to obtain Review of Systems - Review of Systems Review of systems:: pertinent systems reviewed and negative unless documented below - Constitutional Denies fever(s) - Eyes Denies change in vision - ENT Denies sore throat - *Cardiovascular Denies chest pain at rest - *Respiratory Denies cough - *Gastrointestinal Reports abdominal pain, Reports nausea - *Genitourinary Denies blood in urine - *Musculoskeletal Denies joint pain - Integumentary/Breasts Denies rash - *Neurologic Denies localized weakness - Psychiatric Denies anxiety Meds Home Medications Medication Instructions Recorded Confirmed Type Triamterene/Hydrochlorothiazid 1 tab PO DAILY 05/10/20 05/10/20 History [Maxzide-25 tablet] Allergies Allergy/AdvReac Type Severity Reaction Status Date / Time No Known Allergies Allergy Verified 05/10/20 15:34 Exam Vital signs and Labs for Last 24 Hours: Temp Pulse Resp BP Pulse Ox 98.2 F 107 H 19 111/66 99 05/10/20 20:00 05/10/20 20:00 05/10/20 20:00 05/10/20 20:00 05/10/20 20:00 Laboratory Results - last 24 hr 05/10/20 16:43: WBC 14.2 H, RBC 3.53 L, Hgb 12.6, Hct 37.0, MCV 104.9 H, MCH 35.6 H, MCHC 33.9, RDW 16.1, Plt Count 394, MPV 8.0, Neut % (Auto) 89.4 H, Lymph % (Auto) 6.0 L, [place] % (Auto) 3.6, Eos % (Auto) 0.7, Baso % (Auto) 0.3, Neut # (Auto) 12.7 H, Lymph # (Auto) 0.9, [place] # (Auto) 0.5, Eos # (Auto) 0.1,
[2020-05-11 02:11] LABS: Lactic Acid 1.8 mmol/L (0.7-2.1)
--- NOTE | 2020-05-11 03:59 | PC.NURSE ---
Pt is A&Ox4 and has ambulated with staff x1 assist several times this shift and pt tolerated fair d/t unsteady balance a times. Pt has c/o ABD pain 2x, medicated per SEP. Pt has c/o nausea and experienced several episodes of vomiting ~ 2hr after intake of water and chicken broth. Zofran administered as available. Ativan IV administered x2 d/t anxiety this shift. Lungs CTA. ABD is soft, non-tender, with active BS and slightly distended. 1 small, soft BM this shift. TEDS refused. NS infusing to 20g peripheral IV to LAC. Dr. Tsang notified of pt's UA being Nitrate positive and +3 Bacteria on micro. placed new order for Rocephin, blood cultures and Lactic obtained prior to administration of ABX per sepsis protocol. HR has been slightly elevated this shift but RRR. No edema noted. Small scab noted to left knee. Call light within reach, bed alarm in use for safety, and will continue to monitor.
[2020-05-11 04:10] VITALS: BP 110/73; PULSE 94; RESP 18; TEMP 36.6; O2SAT 92
[2020-05-11 05:09] VITALS: BMI 28.5
[2020-05-11 07:06] LABS: Chloride 102 mmol/L (98-107); Potassium 3.2 mmoL/L (3.5-5.1); Sodium 134 mmol/L (136-145)
[2020-05-11 07:09] LABS: Alanine Aminotransferase 58 U/L (12-78); Albumin Level 3.7 g/dl (3.5-5.0); Albumin/Globulin Ratio 1.1 (1.1-1.8); Alkaline Phosphatase 339 U/L (38-126); Anion Gap 12.2 mEq/L (5-15); Aspartate Amino Transferase 181 U/L (14-36); Bilirubin,Total 1.1 mg/dl (0.2-1.3); Blood Urea Nitrogen 4 mg/dl (7-17); Carbon Dioxide 23 mmol/L (22.0-30.0); Creatinine Clearance Estimated 127 mL/min (50-200); Estimated Glomerular Filt Rate 105 ml/min (>60); GFR (African American) 127 ML/MIN (>60); Globulin 3.4 g/dL (1.3-3.2); Glucose 154 mg/dl (74-100); Total Protein,Serum 7.1 g/dl (6.3-8.2)
[2020-05-11 07:10] LABS: Magnesium 1.6 mg/dl (1.6-2.3)
--- NOTE | 2020-05-11 07:25 | HMH.PHAVTE ---
[facility] Pharmacy VTE Monitoring - Patient Demographics Admission date: 05/10/20 Report Date: 05/11/20 Time: 07:25 Allergies/Adverse Reactions: Patient Allergies No Known Allergies Allergy (Verified 05/10/20 15:34) Height: 1.6 m Weight: 73.085 kg Patient Problems: Current Active Problems Abdominal pain (Acute) Hypokalemia (Acute) Transaminitis (Acute) Dehydration (Acute) UTI (urinary tract infection) (Acute) SIRS (systemic inflammatory response syndrome) (Acute) Overweight (BMI 25.0-29.9) (Acute) Tobacco use (Acute) - VTE Risk Labs: VTE Related Lab Results Hgb 12.6 g/dL (12.2-16.2) 05/10/20 16:43 Hct 37.0 % (37.0-47.0) 05/10/20 16:43 Plt Count 394 K/mm3 (142-424) 05/10/20 16:43 BUN 3 mg/dl (7-17) L 05/10/20 16:43 Creatinine 0.70 mg/dl (0.52-1.04) 05/10/20 16:43 Estimated Creat Clear 108 mL/min (50-200) 05/10/20 16:43 VTE Score: 3 VTE Risk Level: Low Risk - Prophylaxis VTE Prophylaxis Ordered?: Yes Types of VTE Prophylaxis: TEDS Knee High Location of Applied Device: Bilateral Lower Extremeties
--- NOTE | 2020-05-11 07:25 | HMH.PHAINT ---
MEDICATION RECONCILIATION COMPLETED ON PATIENT USING EXTERNAL FILL HISTORY FROM PHARMACY. -KARINE XAVIER, JOJOD
[2020-05-11 08:00] VITALS: BP 98/62; PULSE 88; RESP 20; TEMP 36.7; O2SAT 100
--- NOTE | 2020-05-11 08:00 | CA_ITS ---
APPROVED REPORT EXAM: Comprehensive 2D, Doppler, and color-flow Echocardiogram Huller Operator: Tami Coronado CRT Ht: 5 ft 3 in Wt: 160lbs BSA: 1.76 BP: 120/70 mmHg Indications: Chest Pain, Hypertension/HDD, + marijuana use, smoker 2D Dimensions LVOT 1.86 cm (M/F) 1.5-2.5 M-Mode Dimensions RVDd 2.80 cm (0.9-2.6) LA Diam 3.67 cm (1.9-4.0) LVDd 2.97 cm (3.5-5.7) Ao Diam 3.01 cm (2.0-3.7) LVDs 1.10 cm (3.5-5.7) IVSd 0.70 cm (0.6-1.1) PWd 0.80 cm (0.6-1.1) EF (Teich) 92.10% FS 63.00% EDV (Teich) 34.20 mL ESV (Teich) 2.70 mL LV Diastology E Decel Time 150.00 (160-240 msec) E/A Ratio 0.72 MED E' 8.90 (< 7 cm/sec) E'/MED E' Ratio 6.56 (>14) LAT E' 9.20 (<10 cm/sec) E/LAT E' Ratio 6.35 (>14) Aortic Valve AO Peak GR. 7.30 mmHg Mitral Valve MV E Max Grey. 58.00 (40-130 cm/s) MV A Velocity 82.00 (40-130 cm/s) E/A Ratio 0.72 MV Decel. Time 150.00 (160-240 ms) MV PHT 44.00 ms Pulmonary Valve PV Peak Velocity 56.00 (50-150 cm/s) Tricuspid Valve TR P. Velocity 129.00 cm/s RAP Estimate 10.00 mmHg RVSP 16.60 mmHg Left Ventricle Left atrium is mildly enlarged, left ventricle is normal size, mild concentric left ventricular hypertrophy, visually estimated ejection fraction 55% with no regional wall motion abnormality, grade 1 diastolic dysfunction seen without tissue Doppler evidence of raise left atrial pressure. Right Ventricle Right atrium and right ventricle are mildly enlarged with normal contractility. Aortic Valve Aortic valve is minimally thickened and fibrosed, there is no aortic stenosis or aortic insufficiency. Mitral Valve Mitral valve is grossly normal, there is mild mitral regurgitation. Tricuspid Valve Tricuspid valve grossly normal, there is mild tricuspid regurgitation. Pulmonic Valve Pulmonic valve is poorly visualized. Great Vessels Aortic root is normal size. Pericardium No significant pericardial effusion noted. Conclusion 1. Mild biatrial enlargement, normal left ventricular size, mild concentric left ventricular hypertrophy, visually estimated ejection fraction 55% with no regional wall motion abnormality, grade 1 diastolic dysfunction seen without tissue Doppler evidence of raise left atrial pressure. 2. Mild mitral and tricuspid regurgitation. 3. No significant pericardial effusion noted. Electronically signed by : Carlos Manuel Galan, 05/11/2020 16:07:38
--- NOTE | 2020-05-11 08:00 | US_ITS ---
PROCEDURE: US GALLBLADDER CLINICAL INDICATION: abd pain Abdominal pain, distended gallbladder COMPARISON: CT CT ABDOMEN PELVIS WO CON from 05/10/2020 FINDINGS: Pancreas: Pancreas is not well delineated due to overlying bowel gas. CT or MRI without and with contrast with pancreatic protocol may provide further evaluation if clinically desired. Liver: Diffuse increased echogenicity of the liver with poor through transmission of sound consistent with hepatic steatosis. No focal liver lesion demonstrated. There is appropriate direction of blood flow within non dilated portal vein. There is poor through transmission of sound of the liver Right kidney: Unremarkable appearing. No hydronephrosis. Gallbladder: The gallbladder is distended at 11 cm. Common bile duct is normal at 5 mm. There is questionable minimal amount of pericholecystic fluid . Study is limited secondary to the diffuse fatty liver infiltration and 4 through transmission of sound. No gallstones are evident. IMPRESSION: Enlarged gallbladder with questionable minimal pericholecystic fluid. No gallstones. Diffuse fatty liver infiltration Dictated by: Yoshi Thornton MD 05/11/2020 10:44 Yoshi Thornton MD in OV 05/11/2020 10:44
[2020-05-11 08:29] LABS: Basophils # 0.1 K/mm3 (0-0.2); Basophils % 0.4 % (0.1-2.0); Eosinophils # 0.1 K/mm3 (0.0-0.4); Eosinophils % 0.8 % (0.1-12.0); Hematocrit 36.5 % (37.0-47.0); Hemoglobin 11.9 g/dL (12.2-16.2); Lymphocytes # 1.4 K/mm3 (0.7-4.5); Lymphocytes % 9.9 % (10-50); Mean Corpuscular HGB Conc 32.5 g/dL (31.8-35.4); Mean Corpuscular Hemoglobin 34.7 pg (27.0-31.2); Mean Corpuscular Volume 106.6 fl (81-99); Mean Platelet Volume 9.7 fl (7.4-10.4); Monocytes # 0.6 K/mm3 (0.1-1.0); Neutrophils % 84.9 % (37.0-80.0); Platelet Count 398 K/mm3 (142-424); Red Blood Count 3.43 M/mm3 (4.20-5.40); Red Cell Distribution Width 16.3 % (11.5-17.5); White Blood Count 14.2 K/mm3 (4.8-10.8)
--- NOTE | 2020-05-11 08:55 | HMH.ACPN2 ---
Internal Medicine - PN: Subj *Date: 05/11/20 *Time: 08:20 Interval history: pt states she has had abd pain for 2 weeks. Pt states she drank a pint of jagermester a day. has cut back for 2 weeks due to abd pain and nausea. Exam Vital signs and Labs for Last 24 Hours: Temp Pulse Resp BP Pulse Ox 98.0 F 88 20 89/53 L 100 05/11/20 08:00 05/11/20 08:00 05/11/20 08:00 05/11/20 08:00 05/11/20 08:00 Laboratory Results - last 24 hr 05/10/20 16:43: WBC 14.2 H, RBC 3.53 L, Hgb 12.6, Hct 37.0, MCV 104.9 H, MCH 35.6 H, MCHC 33.9, RDW 16.1, Plt Count 394, MPV 8.0, Neut % (Auto) 89.4 H, Lymph % (Auto) 6.0 L, [place] % (Auto) 3.6, Eos % (Auto) 0.7, Baso % (Auto) 0.3, Neut # (Auto) 12.7 H, Lymph # (Auto) 0.9, [place] # (Auto) 0.5, Eos # (Auto) 0.1, Baso # (Auto) 0.1, Total Counted 100, Neutrophils % (Manual) 91 H, Lymphocytes % (Manual) 5 L, Monocytes % (Manual) 3, Eosinophils % (Manual) 1, Platelet Estimate Normal, Anisocytosis 1+, Macrocytosis 1+ 05/10/20 16:43: Sodium 135 L, Potassium 2.5 L*, Chloride 92 L, Carbon Dioxide 28, Anion Gap 17.5 H, BUN 3 L, Creatinine 0.70, Estimated Creat Clear 108, Estimated GFR 88, Est GFR ( Amer) 106, Glucose 138 H, Calcium 9.6, Total Bilirubin 1.3, AST 227 H, ALT 78, Alkaline Phosphatase 365 H, Troponin I < 0.01, Total Protein 7.4, Albumin 3.9, Globulin 3.5 H, Albumin/Globulin Ratio 1.1, Lipase 279 05/10/20 16:43: SARS-CoV-2 IgG Ab (Rapid) Negative, SARS-CoV-2 IgM Ab (Rapid) Negative 05/10/20 16:43: Plasma/Serum Alcohol < 10 05/10/20 21:45: Urine Color Yellow, Urine Appearance Clear, Urine pH 8.0, Ur Specific [place] 1.015, Urine Protein Negative, Urine Glucose (UA) Negative, Urine Ketones Negative, Urine Blood 1+, Urine Nitrate Positive, Urine Bilirubin Negative, Urine Urobilinogen 1.0, Ur Leukocyte Esterase Trace, Urine WBC 5-10, Ur Squamous Epith Cells 5-10, Urine Bacteria 3+ 05/10/20 21:45: Urine Opiates Screen Negative, Urine Methadone Screen Negative, Ur Barbituates Screen Negative, Ur Phencyclidine Scrn Negative, Ur Amphetamines Screen Negative, U Benzodiazepines Scrn Negative, Urine Cocaine Screen Negative, U Marijuana (THC) Screen Positive H 05/11/20 00:00: Lactate 1.8 05/11/20 06:43: Magnesium 1.6 05/11/20 06:43: WBC 14.2 H, RBC 3.43 L, Hgb 11.9 L, Hct 36.5 L, MCV 106.6 H, MCH 34.7 H, MCHC 32.5, RDW 16.3, Plt Count 398, MPV 9.7, Neut % (Auto) 84.9 H, Lymph % (Auto) 9.9 L, [place] % (Auto) 4.0, Eos % (Auto) 0.8, Baso % (Auto) 0.4, Neut # (Auto) 12.0 H, Lymph # (Auto) 1.4, [place] # (Auto) 0.6, Eos # (Auto) 0.1, Baso # (Auto) 0.1 05/11/20 06:43: Sodium 134 L, Potassium 3.2 L D, Chloride 102, Carbon Dioxide 23, BUN 4 L D, Creatinine 0.60, Glucose 154 H, Total Bilirubin 1.1, AST 181 H, ALT 58 D, Alkaline Phosphatase 339 H, Total Protein 7.1, Albumin 3.7 I & O for Last 24 hours: Intake & Output 05/08/20 05/09/20 05/10/20 05/11/20 11:59 11:59 11:59 11:59 Intake Total 410 / 410 Output Total 830 / 830 Balance -420 / -420 Weight 161 lb 2 oz - Constitutional no acute distress - *Routine HEENT Exam Head: Present: normocephalic Eye: Present: PERRL ENT: Present: mucous membranes moist - *Routine Neck Exam Present: supple. Absent: lymphadenopathy - *Routine Respiratory Exam Present: CTA bilaterally - *Routine Cardiovascular Exam Present: RRR - *Routine Abdominal Exam Present: soft, normoactive bowel sounds. Absent: tenderness - *Routine Extremities Exam Present: normal capillary refill. Absent: cyanosis, clubbing, edema - *Routine Skin Exam Present: warm. Absent: rash - *Routine Neurological Exam Present: alert, oriented X3 - Routine Psychiatric Exam Present: normal affect Assessment and Plan (1) Abdominal pain Status: Acute Qualifiers: Abdominal location: right upper quadrant Qualified Code(s): R10.11 - Right upper quadrant pain Category: Medical Code(s): R10.9 - Unspecified abdominal pain (2) UTI (urinary tract infection) Status: Acute
[2020-05-11 10:07] VITALS: BP 98/62
--- NOTE | 2020-05-11 10:07 | SW/DCPLANNER ---
I have spoke with this patient regarding discharge plans. Patient stated that she resides at home alone but her son checks on her often. Patient stated that her son assist her with going to the grocery. Patient currently has no in home services and does not feel she needs them at this time. I also spoke with patient regarding alcohol resources: AA meetings in [place], outpatient services, inpatient resources and my card with info to call me if she has any further questions. Patient has no further needs at this time. Patient stated that she may discharge home later today.
[2020-05-11 10:38] LABS: Ammonia 44 umol/L (9-30)
[2020-05-11 12:47] LABS: Calcium 8.6 mg/dl (8.4-10.2)
[2020-05-11 15:25] VITALS: BP 90/68; PULSE 90; RESP 16; TEMP 36.7; O2SAT 100
[2020-05-11 19:22] VITALS: BP 112/74; PULSE 95; RESP 16; TEMP 37; O2SAT 100
--- NOTE | 2020-05-11 19:55 | PC.NURSE ---
pt c/o abd pain, prn med given with desired effect. pt does express some concern about US and not being able to eat or drink. md ordered a clear liquid diet. at shift report pt reports vomiting after consuming her liquids too fast. educated pt on this. vss. will cont. to monitor.
[2020-05-11 20:15] VITALS: PULSE 95; RESP 16; O2SAT 100
[2020-05-12 03:31] VITALS: BP 107/72; PULSE 101; RESP 16; TEMP 36.8; O2SAT 100
[2020-05-12 05:00] VITALS: BMI 29.0
--- NOTE | 2020-05-12 05:15 | PC.NURSE ---
shift summary, pt has complained of N/V and abdominal pain, PRN meds given with desired effect achieved, VSS
[2020-05-12 07:16] LABS: Basophils % 0.4 % (0.1-2.0); Eosinophils # 0.2 K/mm3 (0.0-0.4); Eosinophils % 2.6 % (0.1-12.0); Hematocrit 31.9 % (37.0-47.0); Hemoglobin 10.4 g/dL (12.2-16.2); Lymphocytes # 1.2 K/mm3 (0.7-4.5); Lymphocytes % 15.1 % (10-50); Mean Corpuscular HGB Conc 32.6 g/dL (31.8-35.4); Mean Corpuscular Hemoglobin 35.8 pg (27.0-31.2); Mean Corpuscular Volume 109.8 fl (81-99); Mean Platelet Volume 8.8 fl (7.4-10.4); Monocytes # 0.3 K/mm3 (0.1-1.0); Monocytes % 3.7 % (1.7-9.3); Neutrophils # 6.1 K/mm3 (1.8-7.8); Neutrophils % 78.2 % (37.0-80.0); Platelet Count 245 K/mm3 (142-424); Red Blood Count 2.91 M/mm3 (4.20-5.40); Red Cell Distribution Width 16.3 % (11.5-17.5); White Blood Count 7.8 K/mm3 (4.8-10.8)
[2020-05-12 07:21] LABS: Chloride 103 mmol/L (98-107)
[2020-05-12 07:22] LABS: Sodium 135 mmol/L (136-145)
[2020-05-12 07:23] LABS: Potassium 2.5 mmoL/L (3.5-5.1)
[2020-05-12 07:25] LABS: Anion Gap 9.5 mEq/L (5-15); Blood Urea Nitrogen 3 mg/dl (7-17); Calcium 8.1 mg/dl (8.4-10.2); Carbon Dioxide 25 mmol/L (22.0-30.0); Creatinine Clearance Estimated 128 mL/min (50-200); Estimated Glomerular Filt Rate 105 ml/min (>60); GFR (African American) 127 ML/MIN (>60); Glucose 108 mg/dl (74-100)
[2020-05-12 08:00] VITALS: BP 94/54; PULSE 95; RESP 16; TEMP 36.6; O2SAT 97
[2020-05-12 09:00] VITALS: PULSE 95; RESP 16; O2SAT 97
--- NOTE | 2020-05-12 09:31 | HMH.GSCON ---
*Admission Date: 05/10/20 *Reason for consult:: Biliary disease *History of present illness: This is a 52-year-old female seen in consultation from the service of Dr. Tsang for evaluation regarding gallbladder disease. She presents the emergency department with increasing abdominal pain (mostly in the epigastric region). No fevers. No jaundice. She does state that over the past few weeks she has had fairly significant pain in the upper abdomen with some radiation to the back. Some associated nausea. She states that her nausea is worse with food intake. A CT scan at the time of admission did reveal a somewhat distended gallbladder. An ultrasound has been completed and final read per radiology is pending. Forwarded from admission H&P: this pt presented to the [facility] office with abd pain -she had been in the [facility] ed a few weeks ago with abd pain but declined admit at that time- she has since had daily pain with no melena and dec po intake - she feels weak and reports abd pain has increased - pt was seen in the ed - Past medical history significant for hypertension, current smoker who presents to the emergency department for upper abdominal pain over the last several weeks. The pain is worse at night when she lies down. She does not regularly take a PPI or H2 crystal and has never been specifically diagnosed with GERD or gastritis. She has episodes of nausea in association with the abdominal pain. The pain will radiate up into her chest sometimes, again worse at night. Also complains of headache that primarily occurs at night. She has complaints of a cold sensation in her feet at night as well has general aches and pains throughout her lower extremities all the time. There did not seem to be any other exacerbating or alleviating factors other than her symptoms being worse at night. He saw Dr. Tsang today who sent her to the admission for further testing and admission. Of note, patient is prescribed potassium, but has not been taking this medication. pt was admitted for eval and treatment Review of Systems - Constitutional Reports anorexia - Eyes Denies change in vision - ENT Denies difficulty swallowing - *Cardiovascular Denies shortness of breath - *Respiratory Denies cough - *Gastrointestinal Reports abdominal pain, Reports nausea - *Genitourinary Denies painful urination - *Musculoskeletal Denies deformity - Integumentary/Breasts Denies new lesions - *Neurologic Denies localized weakness - Psychiatric Denies anxiety - Endocrine Denies cold intolerance - Hematologic/Lymphatic Denies easy bleeding [facility] History Medical History: Reports:: Anxiety, Hypertension Denies:: Cancer, Chronic Obstructive Pulmonary Disease (COPD), Diabetes Mellitus Type 1, Diabetes Mellitus Type 2, Hepatitis, Internal Pacemaker, Pulmonary Embolism, Seizures, Transient Ischemic Attacks (TIA), Urinary Tract Infection *Have you ever received a pneumonia vaccine?: No *Have you received a flu vaccine this season?: No Other Medical History: Reports: Arthritis, Sinus Problems Laterality Cases: Left: Arthroscopy Shoulder, Bilateral: Other Other Surgeries: Yes: Other (back surgery). No: Pacemaker Amputation: No Fractures: No - *Social History Last grade of school completed: GED Smoking Status: Current every day smoker Tobacco Type: cigarettes # Packs/Day (cigarettes): 1 Alcohol Intake: former Alcohol Intake Frequency:: other Substance Use Type: marijuana, opiates, prescription drug, former substance user *Occupational Status:: unemployed Housing: house Household Members: none *Travel in the last 8 weeks: None - Psychiatric History Pschychiatric History:: Reports:: Anxiety Family Hx:: Unable to obtain Meds Home Medications Medication Instructions Recorded Confirmed Type Triamterene/Hydrochlorothiazid 1 tab PO DAILY 05/10/20 05/10/20 History [Maxzide-25 tablet] Allergies Allergy/AdvReac Type Severity Reaction
--- NOTE | 2020-05-12 09:32 | HMH.ACPN2 ---
Internal Medicine - PN: Subj *Date: 05/12/20 *Time: 08:00 Interval history: pt states she vomited all night, but requesting to go home Exam Vital signs and Labs for Last 24 Hours: Temp Pulse Resp BP Pulse Ox 97.9 F 95 H 16 94/54 L 97 05/12/20 08:00 05/12/20 08:00 05/12/20 08:00 05/12/20 08:00 05/12/20 08:00 Laboratory Results - last 24 hr 05/10/20 21:45: Urine Color Yellow, Urine Appearance Clear, Urine pH 8.0, Ur Specific [place] 1.015, Urine Protein Negative, Urine Glucose (UA) Negative, Urine Ketones Negative, Urine Blood 1+, Urine Nitrate Positive, Urine Bilirubin Negative, Urine Urobilinogen 1.0, Ur Leukocyte Esterase Trace, Urine WBC 5-10, Ur Squamous Epith Cells 5-10, Urine Bacteria 3+ 05/11/20 06:43: Anion Gap 12.2, Estimated Creat Clear 127, Estimated GFR 105, Est GFR ( Amer) 127, Calcium 8.6 D, Globulin 3.4 H, Albumin/Globulin Ratio 1.1 05/11/20 10:23: Ammonia 44 H 05/12/20 06:55: WBC 7.8 D, RBC 2.91 L, Hgb 10.4 L, Hct 31.9 L, MCV 109.8 H, MCH 35.8 H, MCHC 32.6, RDW 16.3, Plt Count 245 D, MPV 8.8, Neut % (Auto) 78.2, Lymph % (Auto) 15.1, [place] % (Auto) 3.7, Eos % (Auto) 2.6, Baso % (Auto) 0.4, Neut # (Auto) 6.1, Lymph # (Auto) 1.2, [place] # (Auto) 0.3, Eos # (Auto) 0.2, Baso # (Auto) 0.0 05/12/20 06:55: Sodium 135 L, Potassium 2.5 L* D, Chloride 103, Carbon Dioxide 25, Anion Gap 9.5, BUN 3 L, Creatinine 0.60, Estimated Creat Clear 128, Estimated GFR 105, Est GFR ( Amer) 127, Glucose 108 H, Calcium 8.1 L I & O for Last 24 hours: Intake & Output 05/09/20 05/10/20 05/11/20 05/12/20 11:59 11:59 11:59 11:59 Intake Total 410 / 410 1896 Output Total 830 / 830 Balance -420 / -420 1896 Weight 161 lb 2 oz 163 lb 8 oz Microbiology Reports for the Last 24 Hours: Microbiology 05/10/20 21:45 Urine,Clean Catch Urine Culture - Preliminary Gram Negative Rods - Constitutional no acute distress - *Routine HEENT Exam Head: Present: normocephalic Eye: Present: PERRL ENT: Present: mucous membranes moist - *Routine Neck Exam Present: supple. Absent: lymphadenopathy - *Routine Respiratory Exam Present: CTA bilaterally - *Routine Cardiovascular Exam Present: RRR - *Routine Abdominal Exam Present: soft, normoactive bowel sounds, tenderness - *Routine Extremities Exam Present: normal capillary refill. Absent: cyanosis, clubbing, edema - *Routine Skin Exam Present: warm. Absent: rash - *Routine Neurological Exam Present: alert, oriented X3 - Routine Psychiatric Exam Present: normal affect Assessment and Plan (1) Abdominal pain Status: Acute Qualifiers: Abdominal location: right upper quadrant Qualified Code(s): R10.11 - Right upper quadrant pain Category: Medical Code(s): R10.9 - Unspecified abdominal pain (2) UTI (urinary tract infection) Status: Acute Qualifiers: Urinary tract infection type: acute cystitis Hematuria presence: without hematuria Qualified Code(s): N30.00 - Acute cystitis without hematuria Category: Medical Code(s): N39.0 - Urinary tract infection, site not specified (3) Hypokalemia Status: Acute Category: Medical Code(s): E87.6 - Hypokalemia (4) Transaminitis Status: Acute Category: Medical Code(s): R74.0 - Nonspecific elevation of levels of transaminase and lactic acid dehydrogenase [LDH] (5) SIRS (systemic inflammatory response syndrome) Status: Acute Category: Medical Code(s): R65.10 - Systemic inflammatory response syndrome (SIRS) of non-infectious origin without acute organ dysfunction (6) Overweight (BMI 25.0-29.9) Status: Acute Category: Medical Code(s): E66.3 - Overweight (7) Tobacco use Status: Acute Category: Social Hx Code(s): Z72.0 - Tobacco use - Assessment and plan all Dx Assessment and Plan for all problems:: rounded with dr solomon all orders per dr solomon consult surgery
[2020-05-12 13:44] LABS: Chloride 103 mmol/L (98-107)
[2020-05-12 13:45] LABS: Potassium 3.3 mmoL/L (3.5-5.1); Sodium 134 mmol/L (136-145)
[2020-05-12 13:47] LABS: Blood Urea Nitrogen 3 mg/dl (7-17); Creatinine Clearance Estimated 110 mL/min (50-200); Estimated Glomerular Filt Rate 88 ml/min (>60); GFR (African American) 106 ML/MIN (>60)
[2020-05-12 13:48] LABS: Anion Gap 9.3 mEq/L (5-15); Carbon Dioxide 25 mmol/L (22.0-30.0); Glucose 96 mg/dl (74-100)
[2020-05-12 15:44] VITALS: BMI 28.9
[2020-05-12 16:00] VITALS: BP 97/51; PULSE 90; RESP 16; TEMP 36.8; O2SAT 100
--- NOTE | 2020-05-12 18:00 | PC.NURSE ---
Pt has been pleasant and cooperative this shift. A&O X4. Pt has had frequent complaints of pain, nausea, and anxiety. Pt has been medicated with Tylenol, Ativan, Morphine, and Zofran. Pt reports significant relief with medication and has been able to rest peacefully for the majority of the shift. Pt is on room air with sats. >95%. Lungs CTA. No edema noted. Skin is C/D/I. Abdomen is large, soft, and tender. No BM this shift. No vomiting this shift. Pt is receiving clear liquids and is tolerating well. Pt ambulates independently to/from the bathroom and throughout the room. 20 G peripheral IV in the LT AC is patent and infusing NS @ 100 ML/HR. B/P has been slightly low, although pt has been asymptomatic. Other VSS. Call light within reach. Will continue to monitor.
--- NOTE | 2020-05-12 19:15 | PC.NURSE ---
report given to dorina
[2020-05-12 19:51] VITALS: BP 101/72; PULSE 89; RESP 18; TEMP 36.5; O2SAT 100
[2020-05-13] VITALS (21 sets, daily range): BP systolic 96–130; BP diastolic 67–87; PULSE 71–104; RESP 15–21; TEMP 36.5–43; O2SAT 94–100; BMI 29.8
--- NOTE | 2020-05-13 03:22 | PC.NURSE ---
Pt A&O X4. Pt has c/o pain, nausea, and anxiety. Pt has been medicated per SEP. Lungs CTA. No edema noted. Skin is C/D/I. Abdomen is large, soft, and tender. pt has been NPO since midnight. Pt ambulates independently to/from the bathroom. 20 G peripheral IV in the LAC infusing NS @ 100 ML/HR. Call light within reach. Will continue to monitor.
[2020-05-13 03:29] LABS: Basophils % 0.5 % (0.1-2.0); Eosinophils # 0.2 K/mm3 (0.0-0.4); Eosinophils % 3.1 % (0.1-12.0); Hematocrit 31.3 % (37.0-47.0); Hemoglobin 10.1 g/dL (12.2-16.2); Lymphocytes # 1.1 K/mm3 (0.7-4.5); Lymphocytes % 14.1 % (10-50); Mean Corpuscular HGB Conc 32.1 g/dL (31.8-35.4); Mean Corpuscular Hemoglobin 35.6 pg (27.0-31.2); Mean Corpuscular Volume 110.8 fl (81-99); Monocytes # 0.4 K/mm3 (0.1-1.0); Monocytes % 4.5 % (1.7-9.3); Neutrophils % 77.8 % (37.0-80.0); Platelet Count 237 K/mm3 (142-424); Red Blood Count 2.83 M/mm3 (4.20-5.40); Red Cell Distribution Width 16.5 % (11.5-17.5); White Blood Count 7.7 K/mm3 (4.8-10.8)
[2020-05-13 03:42] LABS: Alanine Aminotransferase 52 U/L (12-78); Albumin Level 2.8 g/dl (3.5-5.0); Albumin/Globulin Ratio 0.9 (1.1-1.8); Alkaline Phosphatase 282 U/L (38-126); Anion Gap 10.3 mEq/L (5-15); Aspartate Amino Transferase 233 U/L (14-36); Bilirubin,Total 0.7 mg/dl (0.2-1.3); Blood Urea Nitrogen 3 mg/dl (7-17); Calcium 7.6 mg/dl (8.4-10.2); Carbon Dioxide 21 mmol/L (22.0-30.0); Chloride 109 mmol/L (98-107); Creatinine Clearance Estimated 128 mL/min (50-200); Estimated Glomerular Filt Rate 105 ml/min (>60); GFR (African American) 127 ML/MIN (>60); Glucose 94 mg/dl (74-100); Potassium 3.3 mmoL/L (3.5-5.1); Sodium 137 mmol/L (136-145); Total Protein,Serum 5.8 g/dl (6.3-8.2)
[2020-05-13 03:47] LABS: Urine Pregnancy, HCG Qual. Negative (Negative)
--- NOTE | 2020-05-13 06:54 | P.PN_ITS ---
Subjective Narrative: resting Progress Note: A&P (1) Abdominal pain Status: Acute (2) UTI (urinary tract infection) Status: Acute (3) Hypokalemia Status: Acute (4) Transaminitis Status: Acute (5) SIRS (systemic inflammatory response syndrome) Status: Acute (6) Overweight (BMI 25.0-29.9) Status: Acute (7) Tobacco use Status: Acute (8) Gallbladder hydrops Status: Acute Assessment and plan: She is scheduled to undergo laparoscopic cholecystectomy this morning. Exam Vital signs and Labs for Last 24 Hours: Temp Pulse Resp BP Pulse Ox 98.2 F 90 18 112/77 100 05/13/20 03:50 05/13/20 03:50 05/13/20 03:50 05/13/20 03:50 05/13/20 03:50 Laboratory Results - last 24 hr 05/12/20 06:55: WBC 7.8 D, RBC 2.91 L, Hgb 10.4 L, Hct 31.9 L, MCV 109.8 H, MCH 35.8 H, MCHC 32.6, RDW 16.3, Plt Count 245 D, MPV 8.8, Neut % (Auto) 78.2, Lymph % (Auto) 15.1, [facility] % (Auto) 3.7, Eos % (Auto) 2.6, Baso % (Auto) 0.4, Neut # (Auto) 6.1, Lymph # (Auto) 1.2, [facility] # (Auto) 0.3, Eos # (Auto) 0.2, Baso # (Auto) 0.0 05/12/20 06:55: Sodium 135 L, Potassium 2.5 L* D, Chloride 103, Carbon Dioxide 2 5, Anion Gap 9.5, BUN 3 L, Creatinine 0.60, Estimated Creat Clear 128, Estimated GFR 105, Est GFR ( Amer) 127, Glucose 108 H, Calcium 8.1 L 05/12/20 13:00: Sodium 134 L, Potassium 3.3 L D, Chloride 103, Carbon Dioxide 25, Anion Gap 9.3, BUN 3 L, Creatinine 0.70, Estimated Creat Clear 110, Estimated GFR 88, Est GFR ( Amer) 106, Glucose 96, Calcium 8.0 L 05/13/20 03:05: Urine HCG, Qual Negative 05/13/20 03:15: WBC 7.7, RBC 2.83 L, Hgb 10.1 L, Hct 31.3 L, MCV 110.8 H, MCH 35.6 H, MCHC 32.1, RDW 16.5, Plt Count 237, MPV 8.0, Neut % (Auto) 77.8, Lymph % (Auto) 14.1, [facility] % (Auto) 4.5, Eos % (Auto) 3.1, Baso % (Auto) 0.5, Neut # (Auto) 6.0, Lymph # (Auto) 1.1, [facility] # (Auto) 0.4, Eos # (Auto) 0.2, Baso # (Auto) 0.0 05/13/20 03:15: Sodium 137, Potassium 3.3 L, Chloride 109 H, Carbon Dioxide 21 L , Anion Gap 10.3, BUN 3 L, Creatinine 0.60, Estimated Creat Clear 128, Estimated GFR 105, Est GFR ( Amer) 127, Glucose 94, Calcium 7.6 L, Total Bilirubin 0.7, AST 233 H D, ALT 52, Alkaline Phosphatase 282 H, Total Protein 5.8 L, Albumin 2.8 L, Globulin 3.0, Albumin/Globulin Ratio 0.9 L I & O for Last 24 hours: Intake & Output 05/10/20 05/11/20 05/12/20 05/13/20 11:59 11:59 11:59 11:59 Intake Total 410 / 410 2257 / 2257 1233 / 1233 Output Total 830 / 830 500 / 500 Balance -420 / -420 2257 / 2257 733 / 733 Weight 161 lb 2 oz 163 lb 8 oz 168 lb 8 oz Microbiology Reports for the Last 24 Hours: Microbiology 05/11/20 00:00 Blood Blood Culture - Preliminary NO GROWTH AFTER 48 HOURS 05/11/20 00:00 Blood Blood Culture - Preliminary NO GROWTH AFTER 48 HOURS 05/10/20 21:45 Urine,Clean Catch Urine Culture - Final Escherichia coli - Constitutional no acute distress - *Routine Respiratory Exam Absent: respiratory distress - *Routine Cardiovascular Exam Present: RRR - *Routine Abdominal Exam Comments: deferred...patient sleeping
--- NOTE | 2020-05-13 07:07 | P.PN_ITS ---
[facility] Anesthesia Checklist - Patient Identification Patient Identification: Arm Band, Verbal (Name & ) - Structural Data Admitted From: Inpatient Planned Operative Procedure/s: Cholecystectomy Consent for Planned Operative Procedure(s) Verified: Yes Verified Documents: Surgical Consent, History and Physical - NPO Status Verified Time NPO: 00:00 - Chart Verification Results Verified: CBC, BMP - Additional verifications Anesthesia Reactions: No - Airway Assessment C-Spine Mobility Assessed: Yes (MP 2, TMD 3, full neck ROM) TMJ Mobility Assessed: Yes Dentition: Dentures-good fit (Upper denture removed, several missing lower teeth) - Neurological Assessment Level of Consciousness: Awake, Alert, Appropriate, Follows Commands Hx Seizures: No Numbness or tingling in extremities: No - Anesthesia Plan Anesthesia Risk discussed: Yes Anesthesia Plan: Verified ASA Class: II Anesthesia Type: General [facility] History I have reviewed the patient's past medical history: Yes Medical History: Reports:: Anxiety, Hypertension Denies:: Cancer, Chronic Obstructive Pulmonary Disease (COPD), Diabetes Mellitus Type 1, Diabetes Mellitus Type 2, Hepatitis, Internal Pacemaker, Pulmonary Embolism, Seizures, Transient Ischemic Attacks (TIA), Urinary Tract Infection *Have you ever received a pneumonia vaccine?: No *Have you received a flu vaccine this season?: No Other Medical History: Reports: Arthritis, Sinus Problems Comment:: Obesity Anesthesia experience/problems:: None Laterality Cases: Left: Arthroscopy Shoulder, Bilateral: Other Other Surgeries: Yes: Other (back surgery). No: Pacemaker Amputation: No Fractures: No - *Social History Last grade of school completed: GED Smoking Status: Current every day smoker Tobacco Type: cigarettes # Packs/Day (cigarettes): 1 Alcohol Intake: former Alcohol Intake Frequency:: other Substance Use Type: marijuana, opiates, prescription drug, former substance user *Occupational Status:: unemployed Housing: house Household Members: none *Travel in the last 8 weeks: None - Psychiatric History Pschychiatric History:: Reports:: Anxiety Family Hx:: Unable to obtain
--- NOTE | 2020-05-13 07:43 | HMH.ACPN2 ---
Internal Medicine - PN: Subj *Date: 05/13/20 *Time: 07:43 Interval history: pt to surg this am - k was 3.3 - Exam Vital signs and Labs for Last 24 Hours: Temp Pulse Resp BP Pulse Ox 98.2 F 90 18 112/77 100 05/13/20 03:50 05/13/20 03:50 05/13/20 03:50 05/13/20 03:50 05/13/20 03:50 Laboratory Results - last 24 hr 05/12/20 13:00: Sodium 134 L, Potassium 3.3 L D, Chloride 103, Carbon Dioxide 25, Anion Gap 9.3, BUN 3 L, Creatinine 0.70, Estimated Creat Clear 110, Estimated GFR 88, Est GFR ( Amer) 106, Glucose 96, Calcium 8.0 L 05/13/20 03:05: Urine HCG, Qual Negative 05/13/20 03:15: WBC 7.7, RBC 2.83 L, Hgb 10.1 L, Hct 31.3 L, MCV 110.8 H, MCH 35.6 H, MCHC 32.1, RDW 16.5, Plt Count 237, MPV 8.0, Neut % (Auto) 77.8, Lymph % (Auto) 14.1, [place] % (Auto) 4.5, Eos % (Auto) 3.1, Baso % (Auto) 0.5, Neut # (Auto) 6.0, Lymph # (Auto) 1.1, [place] # (Auto) 0.4, Eos # (Auto) 0.2, Baso # (Auto) 0.0 05/13/20 03:15: Sodium 137, Potassium 3.3 L, Chloride 109 H, Carbon Dioxide 21 L, Anion Gap 10.3, BUN 3 L, Creatinine 0.60, Estimated Creat Clear 128, Estimated GFR 105, Est GFR ( Amer) 127, Glucose 94, Calcium 7.6 L, Total Bilirubin 0.7, AST 233 H D, ALT 52, Alkaline Phosphatase 282 H, Total Protein 5.8 L, Albumin 2.8 L, Globulin 3.0, Albumin/Globulin Ratio 0.9 L I & O for Last 24 hours: Intake & Output 05/10/20 05/11/20 05/12/20 05/13/20 11:59 11:59 11:59 11:59 Intake Total 410 / 410 2256 / 2256 1233 / 1233 Output Total 830 / 830 500 / 500 Balance -420 / -420 2257 / 2257 733 / 733 Weight 161 lb 2 oz 163 lb 8 oz 168 lb 8 oz Microbiology Reports for the Last 24 Hours: Microbiology 05/11/20 00:00 Blood Blood Culture - Preliminary NO GROWTH AFTER 48 HOURS 05/11/20 00:00 Blood Blood Culture - Preliminary NO GROWTH AFTER 48 HOURS 05/10/20 21:45 Urine,Clean Catch Urine Culture - Final Escherichia coli - Constitutional no acute distress - *Routine HEENT Exam Head: Present: normocephalic Eye: Present: EOMI, PERRL ENT: Present: mucous membranes dry - *Routine Neck Exam Absent: JVD - *Routine Respiratory Exam Absent: respiratory distress - *Routine Cardiovascular Exam Present: RRR - *Routine Abdominal Exam Present: soft, tenderness - *Routine Extremities Exam Absent: calf tenderness - *Routine Skin Exam Present: intact - *Routine Neurological Exam Present: alert, CN II-XII intact Assessment and Plan (1) Abdominal pain Status: Acute Qualifiers: Abdominal location: right upper quadrant Qualified Code(s): R10.11 - Right upper quadrant pain Category: Medical Code(s): R10.9 - Unspecified abdominal pain (2) UTI (urinary tract infection) Status: Acute Qualifiers: Urinary tract infection type: acute cystitis Hematuria presence: without hematuria Qualified Code(s): N30.00 - Acute cystitis without hematuria Category: Medical Code(s): N39.0 - Urinary tract infection, site not specified (3) Hypokalemia Status: Acute Category: Medical Code(s): E87.6 - Hypokalemia (4) Transaminitis Status: Acute Category: Medical Code(s): R74.0 - Nonspecific elevation of levels of transaminase and lactic acid dehydrogenase [LDH] (5) SIRS (systemic inflammatory response syndrome) Status: Acute Category: Medical Code(s): R65.10 - Systemic inflammatory response syndrome (SIRS) of non-infectious origin without acute organ dysfunction (6) Overweight (BMI 25.0-29.9) Status: Acute Category: Medical Code(s): E66.3 - Overweight (7) Tobacco use Status: Acute Category: Social Hx Code(s): Z72.0 - Tobacco use (8) Gallbladder hydrops Status: Acute Category: Medical Code(s): K82.1 - Hydrops of gallbladder (9) Escherichia coli urinary tract infection Status: Acute Category: Medical Code(s): N39.0 - Urinary tract infection, site not specified;
--- NOTE | 2020-05-13 08:52 | HMH.OPNOTE ---
Date of procedure: 05/13/20 Pre-op Diagnosis:: Gallbladder hydrops Post-op Diagnosis:: Gallbladder hydrops Acute cholecystitis Procedure performed:: Laparoscopic cholecystectomy Surgeon:: Hubert Zhao MD SUPERVISOR POLISHING:: Raz Oliver Anesthesia: GETA Estimated blood loss (mL): 15 Operative findings:: Hydropic gallbladder with pericholecystic fat stranding and weeping serosa Significant thickening in and around infundibulum Operative note:: After informed consent was obtained, the patient was taken to the operating room and placed in the supine position. General anesthesia was induced and the abdomen was prepped and draped in a sterile fashion. After infiltration with local anesthetic an infraumbilical incision was made. A Veress needle was placed in position. The abdomen was insufflated. A 5 mm optical trocar was placed in position. Under direct visualization, a 12 mm trocar was placed in the subxiphoid position and 2 additional 5 mm trocars were placed in the right upper quadrant. The gallbladder was elevated up and over the liver margin. The tissue around the cystic duct was carefully dissected. 3 clips were placed proximally and the duct was transected with harmonic janna. Harmonic janna were then utilized to dissect the gallbladder away from the liver margin with careful attention to the control of the cystic artery. The gallbladder was placed in a retrieval bag and removed through the subxiphoid trocar site. The right upper quadrant was thoroughly irrigated. No active bleeding or bile leak was noted. Fascia at the subxiphoid trocar site was reapproximated utilizing the NeoClose device. The remaining trocars were removed. All wounds were irrigated and skin was closed with 4-0 Monocryl in a subcuticular fashion. Steri-Strips were applied. The patient's anesthetic agents were reversed and extubation was completed prior to transfer to recovery in stable condition. Condition: stable Disposition: PACU Specimens:: Gallbladder Complications:: No immediate
--- NOTE | 2020-05-13 09:01 | HMH.ANESI ---
[facility] Anesthesia Record Part I Intake, IV Amount: 900 Estimated blood loss (mL): 20 Urine output (mL): 0 (NM) Blood Products used (#): none Blood Pressure: 120/73 SaO2: 97 Pulse Rate: 93 Respiratory Rate: 16 Temperature: 98.9 F Patient is:: Awake, Drowsy, Stable Stable to PACU at:: 09:00
--- NOTE | 2020-05-13 17:18 | HMH.DCSUM ---
General - General Admission date:: 05/10/20 Discharge date: 05/13/20 HPI HPI: this pt presented to the [facility] office with abd pain -she had been in [facility] ed a few weeks ago with abd pain but declined admit at that time- she has since had daily pain with no melena and dec po intake - she feels weak and reports abd pain has increased - pt was seen in the ed - Past medical history significant for hypertension, current smoker who presents to the emergency department for upper abdominal pain over the last several weeks. The pain is worse at night when she lies down. She does not regularly take a PPI or H2 crystal and has never been specifically diagnosed with GERD or gastritis. She has episodes of nausea in association with the abdominal pain. The pain will radiate up into her chest sometimes, again worse at night. Also complains of headache that primarily occurs at night. She has complaints of a cold sensation in her feet at night as well has general aches and pains throughout her lower extremities all the time. There did not seem to be any other exacerbating or alleviating factors other than her symptoms being worse at night. He saw Dr. Tsang today who sent her to the admission for further testing and admission. Of note, patient is prescribed potassium, but has not been taking this medication. pt was admitted for eval and treatment Hospital Course Hospital Course: Patient was admitted with diffuse abdominal pain. On 1030 she was taken to the operating room. Date of procedure: 05/13/20 Pre-op Diagnosis:: Gallbladder hydrops Post-op Diagnosis:: Gallbladder hydrops Acute cholecystitis Procedure performed:: Laparoscopic cholecystectomy Surgeon:: Hubert Zhao MD She tolerated the procedure nicely and is asking to be sent home tonight. Dr. Thompson is in agreement. I spoke with nursing staff. She is slated for follow-up with Dr. Thompson this coming Friday. She was noted to be hypokalemic on admission, she is advised to follow-up with her primary care provider for subsequent measurement of potassium. Documentation of physical findings are gleaned from Dr. Tsang's exam earlier today. I spoke with nursing staff, patient is in no distress and feels ready to go home. In fact she is insisting on going home. Once again Dr. Thompson does not object. He has written her postoperative analgesics. Patient had a UTI, culture revealed a pansensitive E. coli. She was treated with IV Rocephin. Will discharge on an oral agent. Objective Vital signs: Temp Pulse Resp BP Pulse Ox 98.6 F 104 H 16 96/67 L 98 05/13/20 16:00 05/13/20 16:00 05/13/20 16:00 05/13/20 16:00 05/13/20 16:00 no acute distress - *Routine HEENT Exam Head: Present: normocephalic Eye: Present: EOMI, PERRL ENT: Present: mucous membranes moist - *Routine Neck Exam Present: supple - *Routine Respiratory Exam Present: CTA bilaterally - *Routine Cardiovascular Exam Present: RRR - *Routine Abdominal Exam Present: tenderness - *Routine Extremities Exam Absent: cyanosis, clubbing, edema - *Routine Skin Exam Present: warm Results Labs on day of discharge: Labs from last 24 hours 05/13/20 05/13/20 05/13/20 03:15 03:15 03:05 WBC 7.7 RBC 2.83 L Hgb 10.1 L Hct 31.3 L MCV 110.8 H MCH 35.6 H MCHC 32.1 RDW 16.5 Plt Count 237 MPV 8.0 Neut % (Auto) 77.8 Lymph % (Auto) 14.1 [place] % (Auto) 4.5 Eos % (Auto) 3.1 Baso % (Auto) 0.5 Neut # (Auto) 6.0 Lymph # (Auto) 1.1 [place] # (Auto) 0.4 Eos # (Auto) 0.2 Baso # (Auto) 0.0 Sodium 137 Potassium 3.3 L Chloride 109 H Carbon Dioxide 21 L Anion Gap 10.3 BUN 3 L Creatinine 0.60 Estimated Creat Clear 128 Estimated GFR 105 Est GFR ( Amer) 127 Glucose 94 Calcium 7.6 L Total Bilirubin 0.7 AST 233 H D ALT 52 Alkaline Phosphatase 282 H Total Protein
--- NOTE | 2020-05-14 09:36 | HMH.ANESII ---
[facility] Anesthesia Record Part II Discharge Time: 09:30 Destination: Medical Surgical Department PACU nurse assessment reviewed?: Yes Patient Condition:: Good Anesthesia Complications:: None Swallowing reflex intact?: Yes Cyanosis?: No Blood Pressure: 126/81 Pulse Rate: 93 Temperature: 98.6 F Mental Status: Alert & Oriented Pain level:: 0 Nausea and/or vomitting:: None Intake, IV Amount: 0
[2020-05-14 09:38] VITALS: BP 126/81; PULSE 93; TEMP 37
== END 2020-05-13 18:30 | disposition home or self-care (01) ==
LOC: ER 17:53 → 2ND 18:48
PROVIDERS: Nurse Practitioner Family; Surgery; Admitting Provider Emergency Medicine; Emergency Provider Emergency Medicine; PCP Emergency Medicine; Visit Provider Emergency Medicine
PROC: 0FT44ZZ Resection of Gallbladder, Percutaneous Endoscopic Approach (ICD-10-PCS; CPT 47562; principal; 2020-05-13 07:30)
DX: K81.0 Acute cholecystitis (principal); R65.10 Systemic inflammatory response syndrome (SIRS) of non-infectious origin without acute organ dysfunction; I10 Essential (primary) hypertension; K82.1 Hydrops of gallbladder; Z72.0 Tobacco use; N39.0 Urinary tract infection, site not specified; B96.20 Unspecified Escherichia coli [E. coli] as the cause of diseases classified elsewhere; Z23 Encounter for immunization
CPT/HCPCS: 47562; G0008; 36415; 70450; 71045; 74176; 76705; 80048; 80053; 80305; 81001; 81025; 82140; 83605; 83690; 83735; 84484; 85007; 85025; 86328; 87040; 87086; 87088; 87186; 88304; 90686; 93005; 93306; 96365; 96375; 99284; G0378; J2405; J2710

== ENCOUNTER → 2020-05-24 11:51 | Outpatient (CLI) | payer MEDICAID, SELFPAY ==
--- NOTE | 2020-05-24 12:17 | CT_ITS ---
PROCEDURE: CT ABDOMEN PELVIS W CON CLINICAL INDICATION: abdominal pain diffuse abdominal pain and swelling, 10 days status post cholecystectomy, abdominal pain with nausea and vomiting COMPARISON: CT CT ABDOMEN PELVIS WO CON from 05/10/2020 TECHNIQUE: IV Contrast: 75ML Isovue 370 Oral Contrast None Axial images obtained with sagittal and coronal reformats. All CT scans at the facility use one or more dose reduction, viz: automated exposure control, ma/kV adjustment per patient size (including targeted exams where dose is matched to indication, i.e. head), or iterative reconstruction technique. FINDINGS: LOWER THORAX: The lung bases are clear. ABDOMEN & PELVIS: There is diffuse fatty liver infiltration with heterogeneous density of the liver with hepatomegaly. There are a few areas of more decreased attenuation of the liver which include AA 7 mm hypodensity in the left hepatic lobe and 8 mm hypodensity right hepatic lobe. There is also an ill-defined area of more decreased attenuation in the left hepatic lobe near the gallbladder fossa measuring 3 cm which could be due to more focal fatty infiltration. There has been a cholecystectomy. No evidence of biloma. There is diffuse generalized ascites in the abdomen and pelvis. The spleen, adrenal glands, and pancreas have an unremarkable appearance. There is bilateral renal cortical scarring greater on the right. No hydronephrosis. No renal or ureteral calculi. No localized abscess is evident. No evidence of appendicitis. There is mild diffuse anasarca. There is no free air. No intestinal obstruction IMPRESSION: 1. Diffuse anasarca with moderate amount of abdominal and pelvic ascites. 2. Status post cholecystectomy. 3. Diffuse heterogeneous attenuation of the liver consistent with fatty infiltration with at least 2 and possibly 3 areas of more decreased density which could be due to more focal fatty infiltration or underlying liver lesions. Hepatomegaly noted. Convalescent MRI may provide further evaluation. Dictated by: Yoshi Thornton MD 05/24/2020 15:48 Yoshi Thornton MD in [place] 05/24/2020 15:48
[2020-05-24 12:33] LABS: Basophils # 0.1 K/mm3 (0-0.2); Basophils % 0.6 % (0.1-2.0); Eosinophils # 0.2 K/mm3 (0.0-0.4); Eosinophils % 1.2 % (0.1-12.0); Hematocrit 38.8 % (37.0-47.0); Hemoglobin 11.7 g/dL (12.2-16.2); Lymphocytes # 1.2 K/mm3 (0.7-4.5); Lymphocytes % 7.1 % (10-50); Mean Corpuscular HGB Conc 30.2 g/dL (31.8-35.4); Mean Corpuscular Hemoglobin 33.3 pg (27.0-31.2); Mean Corpuscular Volume 110.3 fl (81-99); Mean Platelet Volume 8.3 fl (7.4-10.4); Monocytes # 0.7 K/mm3 (0.1-1.0); Neutrophils # 14.6 K/mm3 (1.8-7.8); Neutrophils % 87.1 % (37.0-80.0); Platelet Count 480 K/mm3 (142-424); Red Blood Count 3.52 M/mm3 (4.20-5.40); White Blood Count 16.8 K/mm3 (4.8-10.8)
[2020-05-24 12:34] LABS: Chloride 93 mmol/L (98-107); Potassium 3.2 mmoL/L (3.5-5.1); Sodium 127 mmol/L (136-145)
[2020-05-24 12:35] LABS: MANUAL DIFFERENTIAL MANUAL DIFFERENTIAL (MANUAL DIFF)
[2020-05-24 12:37] LABS: Alanine Aminotransferase 47 U/L (12-78); Albumin Level 3.2 g/dl (3.5-5.0); Alkaline Phosphatase 237 U/L (38-126); Anion Gap 13.2 mEq/L (5-15); Aspartate Amino Transferase 140 U/L (14-36); Blood Urea Nitrogen 9 mg/dl (7-17); Carbon Dioxide 24 mmol/L (22.0-30.0); Estimated Glomerular Filt Rate 105 ml/min (>60); GFR (African American) 127 ML/MIN (>60); Globulin 3.1 g/dL (1.3-3.2); Total Protein,Serum 6.3 g/dl (6.3-8.2)
[2020-05-24 12:38] LABS: Glucose 118 mg/dl (74-100)
[2020-05-24 13:00] LABS: Eosinophils % 2 % (0-3); Lymphocytes % 5 % (10-50); Macrocytosis 2+; Monocytes % 5 % (2-9); Neutrophils % 88 % (42-76); Platelet Estimate Normal; Total Cells Counted 100
[2020-05-24 15:22] LABS: Adenovirus F 40/41, stool Not Detected (NotDetected); Astrovirus Not Detected (NotDetected); Campylobacter Not Detected (NotDetected); Clostridium Difficile A/B, PCR Not Detected (NotDetected); Cryptosporidium Not Detected (NotDetected); Cyclospora Cayetanesis Not Detected (NotDetected); Entamoeba histolytica Not Detected (NotDetected); Enteroaggregative E coli Not Detected (NotDetected); Enteropathogenic E coli Not Detected (NotDetected); Enterotoxigenic E coli Not Detected (NotDetected); Giardia lamblia Not Detected (NotDetected); Norovirus Not Detected (NotDetected); Plesimonas Shigalloides, PCR Not Detected (NotDetected); Rotavirus A Not Detected (NotDetected); Salmonella, PCR Not Detected (NotDetected); Sapovirus Not Detected (NotDetected); Shiga-like toxin E coli Not Detected (NotDetected); Shigella Enterovasive E coli Not Detected (NotDetected); Vibrio Cholerae Not Detected (NotDetected); Vibrio, PCR Not Detected (NotDetected); Yersinia Entercolitica, PCR Not Detected (NotDetected)
[2020-05-24 15:22] LABS: Microscopic, Urine URINE MICROSCOPIC (MICROSCOPIC)
[2020-05-24 16:02] LABS: Appearance,Urine CLOUDY (Clear); Blood, Urine Negative (Negative); Color,Urine ORANGE (Yellow); Glucose,Urine (UA) Negative (Negative); Ketones,Urine Negative (Negative); Leukocyte Esterase,Urine TRACE (Negative); Nitrate,Urine Negative (Negative); PH,Urine 6.5 (5.0-8.5); Protein,Urine 1+ (Negative); Specific Gravity, Urine 1.015 (1.005-1.030)
[2020-05-24 16:35] LABS: Bilirubin,Urine 1+ (Negative)
== END ==
PROVIDERS: Visit Provider Surgery
DX: R10.11 Right upper quadrant pain (principal); R10.9 Unspecified abdominal pain
CPT/HCPCS: 36415; 74177; 80053; 81001; 82565; 84520; 85007; 85025; 87086; 87506; Q9967

== ENCOUNTER 2020-05-26 10:05 | Emergency (ER) | payer MEDICAID, SELFPAY ==
[2020-05-26] VITALS (8 sets, daily range): BP systolic 105–118; BP diastolic 74–83; PULSE 100–104; RESP 16–20; TEMP 36.4; O2SAT 98–100; BMI 30.1
--- NOTE | 2020-05-26 | MR_ITS ---
PROCEDURE: MR LUMBAR SPINE WO CON CLINICAL INDICATION: BACK PAIN Low back pain, history of back surgery, bilateral leg pain numbness and tingling COMPARISON: [facility] MRI-L-SPINE W/WO from 04/26/2013 TECHNIQUE: Standard multiplanar multiecho sequences are performed without contrast. 3-D MIP and myelographic images are also rendered and reviewed FINDINGS: There is normal alignment. The spinal cord ends at the L2 level. T10-T11: Mild degenerative disc disease. T11-T12: Unremarkable. T12-L1: Mild degenerative disc disease. L1-L2, L2-L3, and L3-L4 have an unremarkable appearance. L4-5: Degenerative disc disease with minimal bulging disc along with mild facet and ligamentum hypertrophy with mild bilateral foraminal narrowing L5-S1: This is mild degenerative disc disease with mild bulging disc along with facet and ligamentum hypertrophy with bilateral foraminal narrowing. No extruded herniated disc. The cauda equina has an unremarkable appearance. IMPRESSION: 1. Lower thoracic and lumbar spondylosis as described above. Please see above for detailed description at each level. 2. No canal stenosis or disc herniation. 3. No evidence of mass or herniated disc at the cauda equina level. Dictated by: Yoshi Thornton MD 05/26/2020 17:17 Yoshi Thornton MD in [place] 05/26/2020 17:17
--- NOTE | 2020-05-26 10:23 | US_ITS ---
PROCEDURE: US PARACENTESIS CLINICAL INDICATION: ascites COMPARISON: No exams were available for comparison TECHNIQUE: Informed consent was obtain prior to procedure. After appropriate Time out, under aseptic conditions and local anesthesia with 1% buffered lidocaine using sonographic guidance a 6 Greek [id number] catheter was inserted into the largest pocket of fluid localized in the right lower quadrant. Approximately 2060 mL of Serosanguineous fluid was drained. The patient tolerated the procedure well and left the radiology suite in stable condition. FINDINGS: Generalized ascites IMPRESSION: Successful sonographic guided paracentesis without complication. Dictated by: Yoshi Thornton MD 08/17/2020 08:54 Yoshi Thornton MD in [place] 08/17/2020 08:54
--- NOTE | 2020-05-26 10:28 | HMH.EDGENADL ---
ED Disposition Clinical Impression: Neuropathy Ascites Qualifiers: Ascites type: other type Qualified Code(s): R18.8 - Other ascites Disposition: Home, Self-Care Condition on Discharge: Fair Instructions: DI for Ascites, DI for Peripheral Neuropathy Additional Instructions: Take Levaquin as prescribed beginning tomorrow afternoon. See Dr. Tsang in his office on 05/29/2020. Prescriptions: levoFLOXacin [Levaquin 500mg tab] 500 mg PO DAILY #10 tab Transmission Status: Pending to [facility] Referrals: Osvaldo Tsang MD [Primary Care Provider] - - Critical Care Critical Care Time: No Attestation: On 05/26/20, the high probability of a clinically significant, sudden or life threatening deterioration of the following system(s) required my full and direct attention, intervention and personal management. The time I documented below is in addition to time spent performing reported procedures but includes the following listed in this critical care notation. Medical Decision Making - Sen Inquiry Pt receiving controlled substance: No Vital Signs: 05/26/20 10:06 05/26/20 13:54 05/26/20 14:00 Temperature 97.6 F Temperature Source Oral Pulse Rate [Left Radial] 102 H 100 H 104 H Respiratory Rate 20 Blood Pressure [Right Arm] 106/76 L 106/76 L 108/74 L Blood Pressure Mean [Right Arm] 86 86 85 Blood Pressure Source [Right Arm] Automatic Cuff Automatic Cuff Automatic Cuff Blood Pressure Position [Right Arm] Sitting Sitting Sitting 02 Sat by Pulse Oximetry 100 98 Oxygen Delivery Method Room Air Room Air 05/26/20 14:30 05/26/20 15:00 05/26/20 15:30 Temperature Temperature Source Pulse Rate [Left Radial] 101 H 101 H 100 H Respiratory Rate Blood Pressure [Right Arm] 107/77 L 105/78 L 116/83 Blood Pressure Mean [Right Arm] 87 87 94 Blood Pressure Source [Right Arm] Automatic Cuff Automatic Cuff Automatic Cuff Blood Pressure Position [Right Arm] Sitting Sitting Sitting 02 Sat by Pulse Oximetry 98 98 Oxygen Delivery Method Room Air Room Air 05/26/20 16:00 Temperature Temperature Source Pulse Rate [Left Radial] 102 H Respiratory Rate Blood Pressure [Right Arm] 118/78 Blood Pressure Mean [Right Arm] 91 Blood Pressure Source [Right Arm] Automatic Cuff Blood Pressure Position [Right Arm] Sitting 02 Sat by Pulse Oximetry Oxygen Delivery Method - Lab Data Lab Results 05/26/20 10:24: WBC 16.8 H, RBC 3.51 L, Hgb 12.2, Hct 37.3, MCV 106.5 H, MCH 34.8 H, MCHC 32.7, RDW 15.8, Plt Count 552 H, MPV 8.3, Neut % (Auto) 81.9 H, Lymph % (Auto) 10.8, [place] % (Auto) 3.8, Eos % (Auto) 2.7, Baso % (Auto) 0.7, Neut # (Auto) 13.8 H, Lymph # (Auto) 1.8, [place] # (Auto) 0.6, Eos # (Auto) 0.5 H, Baso # (Auto) 0.1, Total Counted 100, Neutrophils % (Manual) 85 H, Lymphocytes % (Manual) 8 L, Monocytes % (Manual) 5, Eosinophils % (Manual) 2, Platelet Estimate Moderate increase, Poikilocytosis 1+, Anisocytosis 2+, Macrocytosis 2+, Acanthocytes (Spur) 1+ 05/26/20 10:38: ESR 90 H 05/26/20 11:45: Ammonia 14 05/26/20 11:45: PT 11.9 H, INR 1.08, APTT 23.7 05/26/20 11:45: Sodium 131 L, Potassium 3.7, Chloride 93 L, Carbon Dioxide 28, Anion Gap 13.7, BUN 11, Creatinine 0.60, Estimated Creat Clear 134, Estimated GFR 105, Est GFR ( Amer) 127, Glucose 106 H, Calcium 9.7, Total Bilirubin 1.0, Direct Bilirubin 0.4, Conjugated Bilirubin 0.0, Indirect Bilirubin 0.6, Unconjugated Bilirubin 0.5, AST 191 H D, ALT 38, Alkaline Phosphatase 274 H, C-Reactive Protein 37.6 H, Total Protein 6.3, Albumin 3.4 L 05/26/20 11:45: Procalcitonin 0.966 05/26/20 11:45: Lactate 2.6 H 05/26/20 11:45: Total Creatine Kinase 56, CK-MB (CK-2) 1.8, CK-MB (CK-2) Rel Index 3.2, Troponin I < 0.01 11/13/20 13:00: Fluid Source Paracentesis, Fluid Volume 7, Fluid Appearance Clear, Fluid RBC (Auto) < 10, Fld Tot Nucleated Cell 177, Fld Polynuclear WBCs % 30, Fld Mononuclear WBCs % 70 Result diagrams: 05/26/20 10:24 05/26/20 11:45
--- NOTE | 2020-05-26 10:43 | XR_ITS ---
PROCEDURE: XR CHEST PORTABLE CLINICAL HISTORY: soa COMPARISON: CR XR CHEST PORTABLE from 04/26/2020 CR XR CHEST PORTABLE from 05/10/2020 FINDINGS: The cardiomediastinal silhouette and pulmonary vascularity are within normal limits considering a somewhat lordotic projection. The lungs are clear without infiltrates, suspicious nodules, or pleural effusions. No acute bony abnormalities. IMPRESSION: No acute findings. Dictated by: Dr. Maximo Alba MD 05/26/2020 11:10 Dr. Maximo Alba MD in [place] 05/26/2020 11:10
[2020-05-26 10:51] LABS: Basophils # 0.1 K/mm3 (0-0.2); Basophils % 0.7 % (0.1-2.0); Eosinophils # 0.5 K/mm3 (0.0-0.4); Eosinophils % 2.7 % (0.1-12.0); Hematocrit 37.3 % (37.0-47.0); Hemoglobin 12.2 g/dL (12.2-16.2); Lymphocytes # 1.8 K/mm3 (0.7-4.5); Lymphocytes % 10.8 % (10-50); Mean Corpuscular HGB Conc 32.7 g/dL (31.8-35.4); Mean Corpuscular Hemoglobin 34.8 pg (27.0-31.2); Mean Corpuscular Volume 106.5 fl (81-99); Mean Platelet Volume 8.3 fl (7.4-10.4); Monocytes # 0.6 K/mm3 (0.1-1.0); Monocytes % 3.8 % (1.7-9.3); Neutrophils # 13.8 K/mm3 (1.8-7.8); Neutrophils % 81.9 % (37.0-80.0); Platelet Count 552 K/mm3 (142-424); Red Blood Count 3.51 M/mm3 (4.20-5.40); Red Cell Distribution Width 15.8 % (11.5-17.5); White Blood Count 16.8 K/mm3 (4.8-10.8)
[2020-05-26 10:58] LABS: MANUAL DIFFERENTIAL MANUAL DIFFERENTIAL (MANUAL DIFF)
--- NOTE | 2020-05-26 11:05 | PC.NURSE ---
Attempted to collect blood via 2nd IV without success. Lab called to recollect due to hemolytic blood
[2020-05-26 11:06] LABS: Acanthocytes 1+; Anisocytosis 2+; Eosinophils % 2 % (0-3); Lymphocytes % 8 % (10-50); Macrocytosis 2+; Monocytes % 5 % (2-9); Neutrophils % 85 % (42-76); Platelet Estimate Moderate Increase; Poikilocytosis 1+; Total Cells Counted 100
[2020-05-26 11:44] LABS: Erythrocyte Sedimentation Rate 90 mm/hr (0-30)
--- NOTE | 2020-05-26 12:05 | PC.NURSE ---
patient going to radiology
[2020-05-26 12:12] LABS: Chloride 93 mmol/L (98-107); Potassium 3.7 mmoL/L (3.5-5.1); Sodium 131 mmol/L (136-145)
[2020-05-26 12:14] LABS: Lactic Acid 2.6 mmol/L (0.7-2.1)
[2020-05-26 12:15] LABS: Alanine Aminotransferase 38 U/L (12-78); Albumin Level 3.4 g/dl (3.5-5.0); Alkaline Phosphatase 274 U/L (38-126); Ammonia 14 umol/L (9-30); Anion Gap 13.7 mEq/L (5-15); Aspartate Amino Transferase 191 U/L (14-36); Bilirubin,Direct 0.4 mg/dl (0.0-0.4); Bilirubin,Indirect 0.6 mg/dL (0.0-0.9); Bilirubin,Unconjugated 0.5 mg/dL (0.0-1.1); Blood Urea Nitrogen 11 mg/dl (7-17); Calcium 9.7 mg/dl (8.4-10.2); Carbon Dioxide 28 mmol/L (22.0-30.0); Creatinine Clearance Estimated 134 mL/min (50-200); Estimated Glomerular Filt Rate 105 ml/min (>60); GFR (African American) 127 ML/MIN (>60); Glucose 106 mg/dl (74-100); Total Protein,Serum 6.3 g/dl (6.3-8.2)
[2020-05-26 12:16] LABS: Creatine Kinase 56 U/L (30-135)
[2020-05-26 12:18] LABS: Activated Partial Thrombo Time 23.7 seconds (23.6-34.0); INR 1.08 (0.9-1.1); Prothrombin Time 11.9 seconds (9.4-11.8)
[2020-05-26 12:21] LABS: C-Reactive Protein 37.6 mg/L (0-4)
[2020-05-26 12:24] LABS: CKMB Relative Index 3.2 U/L (0-4.0); Creatine Kinase MB 1.8 ng/ml (0.0-2.03)
[2020-05-26 12:31] LABS: Troponin I < 0.01 ng/ml (0.00-0.034)
[2020-05-26 12:32] LABS: Procalcitonin 0.966 ng/mL (0.0-2.0)
[2020-05-26 13:37] LABS: Appearance,Body Fld. CLEAR; Source, Body Fld. PARACENTESIS
[2020-05-26 13:38] LABS: RBC,Body Fluid < 10 cells/uL (< 10 X 10^3); TNC,Body Fluid 177 cells/uL (< 1000); Volume,Body Fld. 7 mL
--- NOTE | 2020-05-26 13:56 | ECG_ITS ---
APPROVED REPORT Exam: Resting ECG HR:101 bpm ECG Measurements Heart Rate 101 AXES UT 144 P 75 QRSd 76 QRS 65 QT 370 T 65 QTc 479 Conclusion Sinus tachycardia Otherwise normal ECG Electronically signed by : Wesley Rebolledo, 05/27/2020 06:56:51
--- NOTE | 2020-05-26 14:00 | PC.NURSE ---
Patient has been back form radiology for approx 20-30 mins
[2020-05-26 14:33] LABS: Mononuclear WBCs,Body Fluid 70 %; Polynuclear WBC,Body Fluid 30 %
--- NOTE | 2020-05-26 14:34 | PC.NURSE ---
dr Jha just spoke with Dr Meehan
--- NOTE | 2020-05-26 16:02 | PC.NURSE ---
MRI will be to get pt for lumbar MRI
[2020-05-26 16:05] LABS: Reflex Lactic Add Lactic Reflex
--- NOTE | 2020-05-26 16:30 | PC.NURSE ---
paged Dr. Thompson
--- NOTE | 2020-05-26 16:32 | PC.NURSE ---
on phone with Dr. tinajero at this time
--- NOTE | 2020-05-26 17:26 | PC.NURSE ---
lab at bedside
[2020-05-26 17:46] LABS: Lactic Acid Follow Up (RFLX 1) 1.7 mmol/L (0.7-2.1)
[2020-05-27 12:11] LABS: Hep A Ab, IgM Negative (Negative); Hepatitis B Core Antibody IgM Negative (Negative); Hepatitis B Surface Antigen Negative (Negative)
[2020-05-27 14:54] LABS: Hepatitis C Antibody <0.1 s/co ratio (0.0-0.9)
[2020-05-27 14:54] LABS: Albumin, Body Fluid 1.2 g/dL (Not Estab.); Protein, Body Fluid 3.1 g/dL (.)
[2020-05-29 09:19] LABS: Amylase, Body Fluid 34 U/L (.)
== END 2020-05-26 17:48 | disposition home or self-care (01) ==
PROVIDERS: Emergency Provider Emergency Medicine; PCP Emergency Medicine
DX: R18.8 Other ascites (principal); G62.9 Polyneuropathy, unspecified; I10 Essential (primary) hypertension; F41.9 Anxiety disorder, unspecified; F17.210 Nicotine dependence, cigarettes, uncomplicated
CPT/HCPCS: 36415; 49083; 71045; 72148; 76376; 80048; 80074; 80076; 82042; 82140; 82150; 82247; 82550; 82553; 83605; 84145; 84155; 84484; 85007; 85025; 85610; 85651; 85730; 86140; 87040; 87070; 87205; 89051; 93005; 96374; 99285

== ENCOUNTER → 2020-05-29 17:35 | Outpatient (CLI) | payer MEDICAID, SELFPAY ==
[2020-05-29 18:46] LABS: Basophils # 0.1 K/mm3 (0-0.2); Basophils % 0.8 % (0.1-2.0); Eosinophils # 0.4 K/mm3 (0.0-0.4); Eosinophils % 2.8 % (0.1-12.0); Hematocrit 38.5 % (37.0-47.0); Hemoglobin 12.4 g/dL (12.2-16.2); Lymphocytes # 1.6 K/mm3 (0.7-4.5); Lymphocytes % 10.3 % (10-50); Mean Corpuscular HGB Conc 32.2 g/dL (31.8-35.4); Mean Corpuscular Hemoglobin 35.1 pg (27.0-31.2); Mean Platelet Volume 9.9 fl (7.4-10.4); Monocytes # 0.9 K/mm3 (0.1-1.0); Monocytes % 5.6 % (1.7-9.3); Neutrophils # 12.5 K/mm3 (1.8-7.8); Neutrophils % 80.4 % (37.0-80.0); Platelet Count 481 K/mm3 (142-424); Red Blood Count 3.53 M/mm3 (4.20-5.40); Red Cell Distribution Width 16.4 % (11.5-17.5); White Blood Count 15.5 K/mm3 (4.8-10.8)
[2020-05-29 18:49] LABS: MANUAL DIFFERENTIAL MANUAL DIFFERENTIAL (MANUAL DIFF)
[2020-05-29 18:55] LABS: Chloride 98 mmol/L (98-107)
[2020-05-29 18:56] LABS: Potassium 3.9 mmoL/L (3.5-5.1); Sodium 135 mmol/L (136-145)
[2020-05-29 18:58] LABS: Alanine Aminotransferase 35 U/L (12-78); Aspartate Amino Transferase 177 U/L (14-36); Blood Urea Nitrogen 6 mg/dl (7-17); Estimated Glomerular Filt Rate 88 ml/min (>60); GFR (African American) 106 ML/MIN (>60)
[2020-05-29 18:59] LABS: Albumin Level 3.4 g/dl (3.5-5.0); Albumin/Globulin Ratio 1.1 (1.1-1.8); Alkaline Phosphatase 261 U/L (38-126); Anion Gap 14.9 mEq/L (5-15); Bilirubin,Total 0.6 mg/dl (0.2-1.3); Calcium 9.4 mg/dl (8.4-10.2); Carbon Dioxide 26 mmol/L (22.0-30.0); Glucose 80 mg/dl (74-100); Magnesium 1.3 mg/dl (1.6-2.3); Total Protein,Serum 6.4 g/dl (6.3-8.2)
[2020-05-29 19:09] LABS: Acanthocytes 1+; Anisocytosis 2+; Eosinophils % 2 % (0-3); Lymphocytes % 11 % (10-50); Macrocytosis 2+; Monocytes % 9 % (2-9); Neutrophils % 78 % (42-76); Platelet Estimate Moderate Increase; Poikilocytosis 1+; Stomatocytes 1+; Total Cells Counted 100
== END ==
PROVIDERS: Visit Provider Emergency Medicine
DX: R10.9 Unspecified abdominal pain (principal)
CPT/HCPCS: 80053; 83735; 85007; 85025

== ENCOUNTER → 2020-06-06 13:30 | Outpatient (CLI) | payer MEDICAID, SELFPAY ==
[2020-06-06 16:04] LABS: Iron 75 ug/dL (37-170)
[2020-06-06 16:13] LABS: Total Iron Binding Capacity 260 ug/dL (265-497)
[2020-06-06 16:40] LABS: Ferritin 501 ng/ml (11.1-264)
[2020-06-09 15:05] LABS: Angiotensin Converting Enzyme 71 U/L (14-82)
[2020-06-09 17:21] LABS: Actin (Smooth Muscle) Antibody 8 Units (0-19); Antinuclear Antibodies, IFA Negative (.); Liver-Kidney Microsomal Ab 1.8 Units (0.0-20.0); Mitochondrial (M2) Antibody <20.0 Units (0.0-20.0)
[2020-06-13 18:01] LABS: Alpha-1-Antitrypsin 263 mg/dL (101-187)
== END ==
PROVIDERS: Visit Provider Internal Medicine Gastroenterology
DX: R18.8 Other ascites (principal); K72.90 Hepatic failure, unspecified without coma; K70.31 Alcoholic cirrhosis of liver with ascites
CPT/HCPCS: 36415; 82103; 82104; 82105; 82164; 82728; 83540; 83550; 86038; 86255; 86256; 86376

== ENCOUNTER 2020-06-12 11:43 | Emergency (ER) | payer MEDICAID, SELFPAY ==
[2020-06-12 11:44] VITALS: BP 129/93; PULSE 106; RESP 14; TEMP 36.7; O2SAT 98; BMI 30.1
[2020-06-12 12:16] VITALS: BP 133/86; PULSE 101; RESP 20; O2SAT 99
--- NOTE | 2020-06-12 12:16 | HMH.EDGENADL ---
ED Disposition Clinical Impression: Hypokalemia, Hypercalcemia, Paresthesias Cirrhosis Qualifiers: Hepatic cirrhosis type: alcoholic cirrhosis Ascites presence: unspecified Qualified Code(s): K70.30 - Alcoholic cirrhosis of liver without ascites Disposition: Home, Self-Care Condition on Discharge: Good Additional Instructions: You were seen on an emergency basis. It is very important that you follow up with your primary care provider and/or specialist as we discussed within 2 days. All labs and imaging were obtained and interpreted here to rule out life threatening emergencies, but your final results should be reviewed by your primary doctor at your follow up appointment. Please return to the emergency department if any of your symptoms worsen, or if they do not improve as we discussed. Referrals: Osvaldo Tsang MD [Primary Care Provider] - - Critical Care Critical Care Time: No Attestation: On 06/12/20, the high probability of a clinically significant, sudden or life threatening deterioration of the following system(s) required my full and direct attention, intervention and personal management. The time I documented below is in addition to time spent performing reported procedures but includes the following listed in this critical care notation. Medical Decision Making - Medical Records Medical records reviewed: Yes: I reviewed the patient's medical records. - Sen Inquiry Pt receiving controlled substance: No Vital Signs: 06/12/20 11:44 06/12/20 12:16 06/12/20 12:33 Temperature 98.0 F Temperature Source Oral Pulse Rate [Left Radial] 106 H 101 H 95 H Respiratory Rate 14 20 18 Blood Pressure [Right Arm] 129/93 H 133/86 116/71 Blood Pressure Mean [Right Arm] 105 101 86 Blood Pressure Source [Right Arm] Automatic Cuff Automatic Cuff Blood Pressure Position [Right Arm] Sitting Sitting Sitting 02 Sat by Pulse Oximetry 98 99 95 Oxygen Delivery Method Room Air Room Air Room Air - Lab Data Lab results reviewed: Yes: I reviewed the patient's lab results. Lab Results 06/12/20 12:30: WBC 11.7 H, RBC 3.92 L, Hgb 13.6, Hct 41.0, MCV 104.6 H, MCH 34.8 H, MCHC 33.2, RDW 15.5, Plt Count 441 H, MPV 8.7, Neut % (Auto) 81.6 H, Lymph % (Auto) 9.7 L, Chicot % (Auto) 5.2, Eos % (Auto) 2.5, Baso % (Auto) 1.0, Neut # (Auto) 9.6 H, Lymph # (Auto) 1.1, Chicot # (Auto) 0.6, Eos # (Auto) 0.3, Baso # (Auto) 0.1 06/12/20 12:30: Sodium 137, Potassium 3.3 L, Chloride 98, Carbon Dioxide 28, Anion Gap 14.3, BUN 12, Creatinine 0.80, Estimated Creat Clear 100, Estimated GFR 75, Est GFR ( Amer) 91, Glucose 113 H, Calcium 11.1 H, Total Bilirubin 0.7, AST 205 H, ALT 39, Alkaline Phosphatase 151 H, Total Protein 7.7, Albumin 4.7, Globulin 3.0, Albumin/Globulin Ratio 1.6 Result diagrams: 06/12/20 12:30 06/12/20 12:30 Orders (Tests/Meds): ED MEDICATIONS Generic Name Dose Route Start Last Admin Trade Name Freq PRN Reason Stop Dose Admin Lactated Ringer's 1,000 mls @ 999 mls/hr 06/12/20 13:15 Lactated Ringer's 1000 Ml Bag IV 06/12/20 14:15 .[id number] NICOLE Discontinued Medications Generic Name Dose Route Start Last Admin Trade Name Freq PRN Reason Stop Dose Admin Potassium Chloride 40 meq 06/12/20 13:12 Potassium Chloride 20meq/15ml Udc PO 06/12/20 13:13 ONCE ONE Medical Decision Narrative: 54-year-old female with alcohol cirrhosis who was recently placed on diuretics presenting with abdominal swelling and paresthesias. Nontoxic, afebrile, hemodynamically stable. Benign abdominal exam. Bedside ultrasound by me did not show fluid pockets amenable to paracentesis here and the patient has no emergent symptomatology to warrant paracentesis. Her last paracentesis was 2-1/2 weeks ago. She did relate some paresthesias and her electrolytes were remarkable for a potassium down to 3.3 and a calcium up to 11, however she said that her paresthesias resolved while she was here without intervention and d
[2020-06-12 12:33] VITALS: BP 116/71; PULSE 95; RESP 18; O2SAT 95
[2020-06-12 12:44] LABS: Basophils # 0.1 K/mm3 (0-0.2); Eosinophils # 0.3 K/mm3 (0.0-0.4); Eosinophils % 2.5 % (0.1-12.0); Hemoglobin 13.6 g/dL (12.2-16.2); Lymphocytes # 1.1 K/mm3 (0.7-4.5); Lymphocytes % 9.7 % (10-50); Mean Corpuscular HGB Conc 33.2 g/dL (31.8-35.4); Mean Corpuscular Hemoglobin 34.8 pg (27.0-31.2); Mean Corpuscular Volume 104.6 fl (81-99); Mean Platelet Volume 8.7 fl (7.4-10.4); Monocytes # 0.6 K/mm3 (0.1-1.0); Monocytes % 5.2 % (1.7-9.3); Neutrophils # 9.6 K/mm3 (1.8-7.8); Neutrophils % 81.6 % (37.0-80.0); Platelet Count 441 K/mm3 (142-424); Red Blood Count 3.92 M/mm3 (4.20-5.40); Red Cell Distribution Width 15.5 % (11.5-17.5); White Blood Count 11.7 K/mm3 (4.8-10.8)
[2020-06-12 12:47] LABS: Chloride 98 mmol/L (98-107); Potassium 3.3 mmoL/L (3.5-5.1); Sodium 137 mmol/L (136-145)
[2020-06-12 12:50] LABS: Alanine Aminotransferase 39 U/L (12-78); Albumin Level 4.7 g/dl (3.5-5.0); Albumin/Globulin Ratio 1.6 (1.1-1.8); Alkaline Phosphatase 151 U/L (38-126); Anion Gap 14.3 mEq/L (5-15); Aspartate Amino Transferase 205 U/L (14-36); Bilirubin,Total 0.7 mg/dl (0.2-1.3); Blood Urea Nitrogen 12 mg/dl (7-17); Calcium 11.1 mg/dl (8.4-10.2); Carbon Dioxide 28 mmol/L (22.0-30.0); Creatinine Clearance Estimated 100 mL/min (50-200); Estimated Glomerular Filt Rate 75 ml/min (>60); GFR (African American) 91 ML/MIN (>60); Glucose 113 mg/dl (74-100); Total Protein,Serum 7.7 g/dl (6.3-8.2)
--- NOTE | 2020-06-12 13:22 | PC.NURSE ---
Pt up to restroom
[2020-06-12 14:01] VITALS: BP 118/88; PULSE 100; RESP 16; TEMP 36.7; O2SAT 98
== END 2020-06-12 14:02 | disposition home or self-care (01) ==
PROVIDERS: Emergency Provider Physician Assistant; PCP Emergency Medicine
DX: K70.30 Alcoholic cirrhosis of liver without ascites (principal); E83.52 Hypercalcemia; E87.6 Hypokalemia; I10 Essential (primary) hypertension; F41.9 Anxiety disorder, unspecified; F17.210 Nicotine dependence, cigarettes, uncomplicated; Z90.49 Acquired absence of other specified parts of digestive tract; Z79.899 Other long term (current) drug therapy
CPT/HCPCS: 80053; 85025; 99282

== ENCOUNTER → 2020-06-24 10:33 | Outpatient (CLI) | payer MEDICAID, SELFPAY ==
[2020-06-24 13:09] LABS: Coronavirus 19 IgG Antibody Negative (Negative); Coronavirus 19 IgM Antibody Negative (Negative)
== END ==
PROVIDERS: Visit Provider Internal Medicine Gastroenterology
DX: Z01.818 Encounter for other preprocedural examination (principal); Z03.818 Encounter for observation for suspected exposure to other biological agents ruled out; Z13.810 Encounter for screening for upper gastrointestinal disorder; K74.60 Unspecified cirrhosis of liver
CPT/HCPCS: 36415; 86328

== ENCOUNTER 2020-06-26 10:50 | Day surgery (SDC) | payer MEDICAID, SELFPAY ==
[2020-06-22 13:21] VITALS: BMI 30.1
[2020-06-26 11:16] VITALS: BP 132/81; PULSE 97; RESP 18; TEMP 36.2; O2SAT 100
[2020-06-26 11:44] VITALS: O2SAT 98
--- NOTE | 2020-06-26 11:59 | HMH.ANESCL ---
[facility] Anesthesia Checklist - Patient Identification Patient Identification: Arm Band, Verbal (Name & ) - Structural Data Admitted From: Home Planned Operative Procedure/s: EGD Consent for Planned Operative Procedure(s) Verified: Yes Verified Documents: Surgical Consent, History and Physical - NPO Status Verified Time NPO: 00:00 - Chart Verification Results Verified: CBC, BMP - Additional verifications Patient : No Anesthesia Reactions: No - Airway Assessment C-Spine Mobility Assessed: Yes (MP 2, TMD 3) TMJ Mobility Assessed: Yes Dentition: Dentures-good fit (Upper) - Neurological Assessment Level of Consciousness: Awake, Alert, Appropriate, Follows Commands Hx Seizures: No Numbness or tingling in extremities: No - Anesthesia Plan Anesthesia Risk discussed: Yes Anesthesia Plan: Verified ASA Class: III Anesthesia Type: MAC [facility] History I have reviewed the patient's past medical history: Yes Medical History: Reports:: Anxiety, Hypertension Denies:: Cancer, Chronic Obstructive Pulmonary Disease (COPD), Diabetes Mellitus Type 1, Diabetes Mellitus Type 2, Hepatitis, Internal Pacemaker, MRSA, Pulmonary Embolism, Seizures, Transient Ischemic Attacks (TIA), Urinary Tract Infection *Have you ever received a pneumonia vaccine?: No *Have you received a flu vaccine this season?: Yes Other Medical History: Reports: Arthritis, Liver Disease (cirrhosis, ascites), Sinus Problems Comment:: SOCO Anesthesia experience/problems:: None Laterality Cases: Left: Arthroscopy Shoulder, Bilateral: Other Other Surgeries: Yes: Cholecystectomy, Other (back surgery). No: Pacemaker Amputation: No Fractures: No - *Social History Last grade of school completed: High school graduate Smoking Status: Current every day smoker Tobacco Type: cigarettes # Packs/Day (cigarettes): 1 Alcohol Intake: former Alcohol Intake Frequency:: 3 or more drinks per day Substance Use Type: marijuana, opiates, prescription drug, former substance user *Occupational Status:: unemployed Housing: house Household Members: none *Travel in the last 8 weeks: None - Psychiatric History Pschychiatric History:: Reports:: Anxiety Family Hx:: Adopted
--- NOTE | 2020-06-26 12:02 | P.PCN_ITS ---
[facility] Procedure Note Procedure Note:: Upper Endoscopy Procedure Report: Esophagogastroduodenoscopy with cold biopsies Endoscopost: Caleb Meehan II, MD Referring Physician: Osvaldo Tsang MD Date of Procedure: June 26, 2020 Equipment: Olympus GIF 180 standard upper endoscope Sedation: MAC sedation Indications: Mrs. Hansen is a 54-year-old female with cirrhosis and ascites. She did have an elevated C-reactive protein of 37.6 and sed rate of 90. She had negative viral hepatitis serologies. She was a moderate to heavy alcohol dr sood. She also had methylprednisolone administered because of her acute alcoholic hepatitis and symptoms. She was also placed on a sodium restricted diet and spironolactone. Her more recent lab work including smooth muscle antibody, AMA, JANETTE, anti-LKM were normal. Her MELISSA level was 71. Overall the patient has felt much better since alcohol abstinence, spironolactone, methylprednisolone and salt restricted diet. EGD is performed to exclude portal hypertension/esophageal varices. Procedure: Prior to the procedure, a history and physical exam was performed, and patient's medications and allergies were reviewed. The risks, benefits and alternatives of the sedation and procedure were discussed with the patient. All questions were answered and informed consent was obtained. The patient was brought to the procedure room. Patient identification and proposed procedure were verified by the physician and the nurse. The patient was placed in a left lateral decubitus position and the scope was passed under direct vision. Throughout the procedure, the patient's blood pressure, pulse, and oxygen saturations were monitored continuously. The upper GI endoscopy was accomplished without difficulty. The patient tolerated the procedure well. Findings: The scope was passed directly into the upper esophagus and advanced to the third portion of the duodenum. The post bulbar duodenum and duodenal bulb were normal with normal mucosa and conniventes. The scope was withdrawn through a normal duodenal bulb and pylorus into the stomach. There was moderate linear reactive gastropathy with erosions in the antrum and body of the stomach and bile reflux. Cold biopsies were taken from the antrum. Upon retroflexion there was no hiatal hernia and there were no gastric varices. The scope was then withdrawn into the esophagus. There was a serrated Z-line with a couple of tongues of salmon-colored mucosa that were biopsied to rule out intestinal metaplasia. There was no evidence of reflux esophagitis or Schatzki's ring. There was no evidence of esophageal varices. There were whitish-yellow plaque that was mild along the mid and proximal esophagus. Cold biopsies were obtained to rule out candidal esophagitis. The remainder of the esophageal mucosa was normal. Impression: 1. Mild candidal esophagitis 2. Nonerosive GERD 3. Moderate linear erosive gastropathy Plan: There was no evidence of portal hypertension. I am going to continue the spironolactone. I will repeat liver chemistries to day. I will have her follow-up in 8 to 12 weeks as an outpatient for telemedicine or in office (Geir GATES). I will follow-up the biopsies. She will need screening colonoscopy at some point.
[2020-06-26 12:04] VITALS: BP 112/78; PULSE 89; RESP 16; TEMP 36.9; O2SAT 100
[2020-06-26 12:14] VITALS: BP 122/67; PULSE 89; RESP 16; O2SAT 100
[2020-06-26 12:24] VITALS: BP 139/93; PULSE 87; RESP 16; O2SAT 100
[2020-06-26 12:34] VITALS: BP 130/80; PULSE 87; RESP 16; TEMP 36.9; O2SAT 100
[2020-06-26 21:04] LABS: Alanine Aminotransferase 47 U/L (12-78); Aspartate Amino Transferase 58 U/L (14-36); Bilirubin,Unconjugated 0.2 mg/dL (0.0-1.1)
[2020-06-26 21:05] LABS: Albumin Level 4.5 g/dl (3.5-5.0); Alkaline Phosphatase 94 U/L (38-126); Bilirubin,Direct 0.2 mg/dl (0.0-0.4); Bilirubin,Indirect 0.2 mg/dL (0.0-0.9); Bilirubin,Total 0.4 mg/dl (0.2-1.3); Total Protein,Serum 7.8 g/dl (6.3-8.2)
[2020-06-26 21:10] LABS: C-Reactive Protein 4.5 mg/L (0-4)
== END 2020-06-26 12:36 | disposition home or self-care (01) ==
PROVIDERS: PCP Emergency Medicine; Visit Provider Internal Medicine Gastroenterology
PROC: 0DJ08ZZ Inspection of Upper Intestinal Tract, Via Natural or Artificial Opening Endoscopic (ICD-10-PCS; CPT 43235; principal; 2020-06-26 12:00)
DX: K20.80 Other esophagitis without bleeding (principal); K21.9 Gastro-esophageal reflux disease without esophagitis; K31.9 Disease of stomach and duodenum, unspecified; K70.31 Alcoholic cirrhosis of liver with ascites; J44.9 Chronic obstructive pulmonary disease, unspecified; G47.33 Obstructive sleep apnea (adult) (pediatric); Z79.899 Other long term (current) drug therapy
CPT/HCPCS: 43239; 80076; 86140

== ENCOUNTER → 2020-08-14 09:46 | Outpatient (CLI) | payer OTHER, SELFPAY ==
--- NOTE | 2020-08-14 09:49 | MR_ITS ---
PROCEDURE: MR ABDOMEN WO/W CON CLINICAL INDICATION: ALCOHOLIC CIRRHOSIS OF LIVER WITH ASCITES CIRRHOSIS OF LIVER. Diffuse abdominal pain and swelling, possible liver lesion on recent CT versus focal fatty disease. COMPARISON: CT CT ABDOMEN PELVIS W CON from 05/24/2020 TECHNIQUE: Routine multiplanar multi echo sequences are performed without and with gadolinium enhancement. FINDINGS: No focal liver lesions are evident. No enhancing lesions apparent of the liver. The suspicious regions noted on the recent abdominal CT ear are felt to be due to more focal areas of fatty infiltration on that exam. Heterogeneous areas of decreased intensity noted on the post enhanced fat sat images consistent with fatty infiltration. The spleen, adrenal glands, pancreas, and kidneys have an unremarkable appearance. There has been a prior cholecystectomy. There is diffuse decreased intensity of the liver on the T2 fat sat images consistent with fatty infiltration. No biliary dilatation or pancreatic ductal dilatation. IMPRESSION: 1. Diffuse fatty liver with no focal liver lesions evident. 2. Prior cholecystectomy. Dictated by: Yoshi Thornton MD 08/21/2020 09:52 Yoshi Thornton MD in [place] 08/21/2020 09:52
[2020-08-14 12:06] LABS: Basophils # 0.1 K/mm3 (0-0.2); Basophils % 0.5 % (0.1-2.0); Eosinophils # 0.1 K/mm3 (0.0-0.4); Eosinophils % 0.8 % (0.1-12.0); Hematocrit 48.2 % (37.0-47.0); Hemoglobin 15.6 g/dL (12.2-16.2); Lymphocytes % 7.2 % (10-50); Mean Corpuscular HGB Conc 32.4 g/dL (31.8-35.4); Mean Corpuscular Hemoglobin 30.6 pg (27.0-31.2); Mean Corpuscular Volume 94.4 fl (81-99); Monocytes # 0.5 K/mm3 (0.1-1.0); Monocytes % 3.5 % (1.7-9.3); Neutrophils # 12.7 K/mm3 (1.8-7.8); Neutrophils % 87.9 % (37.0-80.0); Platelet Count 373 K/mm3 (142-424); White Blood Count 14.4 K/mm3 (4.8-10.8)
[2020-08-14 12:09] LABS: MANUAL DIFFERENTIAL MANUAL DIFFERENTIAL (MANUAL DIFF)
[2020-08-14 12:15] LABS: Prothrombin Time 10.6 seconds (9.4-11.8)
[2020-08-14 12:16] LABS: INR 0.95 (0.9-1.1)
[2020-08-14 12:42] LABS: Ammonia < 9 umol/L (9-30)
[2020-08-14 12:46] LABS: Chloride 99 mmol/L (98-107); Lymphocytes % 8 % (10-50); Monocytes % 8 % (2-9); Neutrophils % 84 % (42-76); Platelet Estimate Normal; Potassium 4.2 mmoL/L (3.5-5.1); RBC Morphology Normal; Sodium 136 mmol/L (136-145); Total Cells Counted 100
[2020-08-14 12:48] LABS: Alanine Aminotransferase 20 U/L (12-78); Aspartate Amino Transferase 26 U/L (14-36); Blood Urea Nitrogen 20 mg/dl (7-17); Estimated Glomerular Filt Rate 75 ml/min (>60); GFR (African American) 91 ML/MIN (>60)
[2020-08-14 12:49] LABS: Albumin Level 4.9 g/dl (3.5-5.0); Albumin/Globulin Ratio 1.5 (1.1-1.8); Alkaline Phosphatase 73 U/L (38-126); Anion Gap 13.2 mEq/L (5-15); Bilirubin,Total 0.4 mg/dl (0.2-1.3); Calcium 10.8 mg/dl (8.4-10.2); Carbon Dioxide 28 mmol/L (22.0-30.0); Globulin 3.3 g/dL (1.3-3.2); Glucose 115 mg/dl (74-100); Iron 61 ug/dL (37-170); Total Protein,Serum 8.2 g/dl (6.3-8.2)
[2020-08-14 13:40] LABS: Total Iron Binding Capacity 393 ug/dL (265-497)
[2020-08-14 14:07] LABS: Ferritin 40.8 ng/ml (11.1-264)
== END ==
PROVIDERS: PCP Emergency Medicine; Visit Provider Nurse Practitioner Family
DX: K76.9 Liver disease, unspecified (principal); K70.31 Alcoholic cirrhosis of liver with ascites; F10.11 Alcohol abuse, in remission
CPT/HCPCS: 36415; 74183; 80053; 82105; 82140; 82728; 83540; 83550; 85007; 85025; 85610; A9576

== ENCOUNTER → 2020-09-26 11:17 | Outpatient (CLI) | payer OTHER, SELFPAY ==
[2020-09-26 12:15] VITALS: PULSE 93; PULSE 96
== END ==
PROVIDERS: PCP Emergency Medicine; Visit Provider Nurse Practitioner Family
DX: R06.02 Shortness of breath (principal)
CPT/HCPCS: 94060; 94618; 94640; 94726; 94729

== ENCOUNTER → 2021-03-26 07:50 | Outpatient (CLI) | payer OTHER, SELFPAY ==
--- NOTE | 2021-03-26 07:58 | US_ITS ---
PROCEDURE: US ABDOMEN LIMITED CLINICAL INDICATION: LIVER LESION,ALCOHOLIC CIRRHOSIS,HEPATIC FAILURE COMPARISON: No exams were available for comparison FINDINGS: PANCREAS: Unremarkable. No obvious mass or abnormal fluid collection. No ductal dilatation LIVER: No focal liver lesions demonstrated. Homogeneous echogenicity. No intrahepatic biliary ductal dilatation evident. There is appropriate direction of blood flow within a non dilated portal vein RIGHT KIDNEY: Unremarkable. Normal size and echogenicity. No hydronephrosis GALLBLADDER: Prior cholecystectomy. Common bile duct is unremarkable at 6 mm. IMPRESSION: Prior cholecystectomy otherwise negative Dictated by: Yoshi Thornton MD 03/26/2021 15:47 Yoshi Thornton MD in [place] 03/26/2021 15:47
== END ==
PROVIDERS: PCP Emergency Medicine; Visit Provider Nurse Practitioner Family
DX: K70.31 Alcoholic cirrhosis of liver with ascites (principal); K72.90 Hepatic failure, unspecified without coma; K76.9 Liver disease, unspecified
CPT/HCPCS: 76705

== ENCOUNTER → 2021-04-02 10:56 | Outpatient (POV) | payer OTHER, SELFPAY ==
[2021-04-02 12:34] LABS: Basophils # 0.1 K/mm3 (0-0.2); Eosinophils # 0.3 K/mm3 (0.0-0.4); Eosinophils % 3.9 % (0.1-12.0); Hematocrit 46.6 % (37.0-47.0); Hemoglobin 15.5 g/dL (12.2-16.2); Lymphocytes # 2.1 K/mm3 (0.7-4.5); Lymphocytes % 26.7 % (10-50); Mean Corpuscular HGB Conc 33.2 g/dL (31.8-35.4); Mean Corpuscular Hemoglobin 30.1 pg (27.0-31.2); Mean Corpuscular Volume 90.5 fl (81-99); Mean Platelet Volume 9.2 fl (7.4-10.4); Monocytes # 0.4 K/mm3 (0.1-1.0); Monocytes % 4.7 % (1.7-9.3); Neutrophils # 4.9 K/mm3 (1.8-7.8); Neutrophils % 63.7 % (37.0-80.0); Platelet Count 265 K/mm3 (142-424); Red Blood Count 5.16 M/mm3 (4.20-5.40); Red Cell Distribution Width 13.5 % (11.5-17.5); White Blood Count 7.8 K/mm3 (4.8-10.8)
[2021-04-02 12:41] LABS: Ammonia < 9 umol/L (9-30)
[2021-04-02 12:44] LABS: Prothrombin Time 11.1 seconds (10.1-12.5)
[2021-04-02 12:46] LABS: INR 0.94 (0.9-1.1)
[2021-04-02 15:55] LABS: Chloride 97 mmol/L (98-107); Potassium 3.2 mmoL/L (3.5-5.1); Sodium 137 mmol/L (136-145)
[2021-04-02 15:58] LABS: Alanine Aminotransferase 13 U/L (12-78); Alkaline Phosphatase 81 U/L (38-126); Anion Gap 12.2 mEq/L (5-15); Aspartate Amino Transferase 28 U/L (14-36); Bilirubin,Total 0.3 mg/dl (0.2-1.3); Blood Urea Nitrogen 13 mg/dl (7-17); Calcium 9.8 mg/dl (8.4-10.2); Carbon Dioxide 31 mmol/L (22.0-30.0); Estimated Glomerular Filt Rate 65 ml/min (>60); GFR (African American) 79 ML/MIN (>60); Glucose 109 mg/dl (74-100); Iron 52 ug/dL (37-170)
[2021-04-02 15:59] LABS: Albumin Level 4.2 g/dl (3.5-5.0); Albumin/Globulin Ratio 1.4 (1.1-1.8); Total Protein,Serum 7.2 g/dl (6.3-8.2)
[2021-04-02 16:09] LABS: Total Iron Binding Capacity 414 ug/dL (265-497)
[2021-04-02 16:35] LABS: Ferritin 15.7 ng/ml (11.1-264)
== END ==
PROVIDERS: Visit Provider Nurse Practitioner Family
DX: K70.31 Alcoholic cirrhosis of liver with ascites (principal); R18.8 Other ascites; F10.11 Alcohol abuse, in remission
CPT/HCPCS: 36415; 80053; 82105; 82140; 82728; 83540; 83550; 85025; 85610

== ENCOUNTER → 2022-06-10 09:00 | Outpatient (CLI) | payer BC, SELFPAY ==
[2022-06-10 13:47] LABS: Basophils # 0.1 K/mm3 (0-0.2); Basophils % 1.1 % (0.1-2.0); Eosinophils # 0.2 K/mm3 (0.0-0.4); Eosinophils % 2.5 % (0.1-12.0); Hematocrit 44.5 % (37.0-47.0); Hemoglobin 14.9 g/dL (12.2-16.2); Lymphocytes % 23.3 % (10-50); Mean Corpuscular HGB Conc 33.4 g/dL (31.8-35.4); Mean Corpuscular Hemoglobin 31.6 pg (27.0-31.2); Mean Corpuscular Volume 94.7 fl (81-99); Mean Platelet Volume 9.6 fl (7.4-10.4); Monocytes # 0.6 K/mm3 (0.1-1.0); Neutrophils # 5.7 K/mm3 (1.8-7.8); Neutrophils % 66.1 % (37.0-80.0); Platelet Count 343 K/mm3 (142-424); Red Cell Distribution Width 13.1 % (11.5-17.5); White Blood Count 8.7 K/mm3 (4.8-10.8)
[2022-06-10 14:07] LABS: Alanine Aminotransferase 22 U/L (12-78); Albumin Level 4.9 g/dl (3.5-5.0); Albumin/Globulin Ratio 1.6 (1.1-1.8); Alkaline Phosphatase 123 U/L (38-126); Anion Gap 21.5 mEq/L (5-15); Aspartate Amino Transferase 35 U/L (14-36); Bilirubin,Total 0.4 mg/dl (0.2-1.3); Blood Urea Nitrogen 16 mg/dl (7-17); Calcium 10.5 mg/dl (8.4-10.2); Carbon Dioxide 26 mmol/L (22.0-30.0); Chloride 90 mmol/L (98-107); Chol/HDL Ratio 4.7 (1-3.5); Cholesterol 288 mg/dl (140-200); Estimated Glomerular Filt Rate 58 ml/min (>60); GFR (African American) 70 ML/MIN (>60); Glucose 101 mg/dl (74-100); HDL Cholesterol 61 mg/dl (40-60); Potassium 3.5 mmoL/L (3.5-5.1); Sodium 134 mmol/L (136-145); Total Protein,Serum 7.9 g/dl (6.3-8.2)
[2022-06-10 14:20] LABS: Triglycerides 598 mg/dl (30-150)
[2022-06-10 14:23] LABS: Free T4 (Free Thyroxine) 1.19 ng/dl (0.78-2.19)
[2022-06-10 14:24] LABS: 25-OH Vitamin D, Total 31.2 ng/mL (30-100)
[2022-06-10 14:25] LABS: Direct LDL Cholesterol 122.92 mg/dL (100-129)
[2022-06-10 14:39] LABS: Thyroid Stimulating Hormone 2.78 uIU/mL (0.465-4.68)
== END ==
LOC: LAB.DROPOF 13:29
PROVIDERS: PCP Emergency Medicine; Visit Provider Emergency Medicine
DX: G62.9 Polyneuropathy, unspecified (principal); E55.9 Vitamin D deficiency, unspecified; Z79.899 Other long term (current) drug therapy
CPT/HCPCS: 80053; 80061; 82306; 84439; 84443; 85025

== ENCOUNTER → 2022-06-13 07:24 | Outpatient (CLI) | payer BC, SELFPAY ==
--- NOTE | 2022-06-13 07:24 | CT_ITS ---
FINAL REPORT TECHNIQUE: Axial images through the abdomen and pelvis were performed without contrast. This study was performed with techniques to keep radiation doses as low as reasonably achievable, (ALARA). Individualized dose reduction techniques using automated exposure control or adjustment of mA and/or kV according to the patient's size were employed. CLINICAL HISTORY: ventral hernia, RUQ pain COMPARISON: May 2020 FINDINGS: Abdomen: The lung bases are clear. The liver parenchyma is homogeneous. The gallbladder is absent. The spleen, pancreas, adrenals and kidneys are unremarkable. The previous extensive ascites has resolved. Pelvis: The urinary bladder is unremarkable. The appendix is normal. The uterus is present. There is no pelvic mass or inflammation. IMPRESSION: No acute abnormality. Reviewed, Interpreted and Dictated by Virgil Cruz MD Transcribed by Crispin Yao Authenticated and [facility]
== END ==
LOC: RAD 07:24
PROVIDERS: PCP Emergency Medicine; Visit Provider Emergency Medicine
DX: K43.9 Ventral hernia without obstruction or gangrene (principal)
CPT/HCPCS: 74176

== ENCOUNTER → 2022-08-28 13:04 | Outpatient (CLI) | payer BC, SELFPAY ==
--- NOTE | 2022-08-28 13:08 | XR_ITS ---
FINAL REPORT CLINICAL HISTORY: right foot pain..knot on medial side and top of foot FINDINGS: AP, oblique and lateral views of the right foot were obtained. There is no prior exam for comparison. There is a fracture of the medial base of the 2nd metatarsal which may be chronic. No other fracture is visualized. There is multi joint degenerative disease, most pronounced at the midfoot. There is sized tissue edema along the medial midfoot. IMPRESSION: 1. Age indeterminate, likely chronic, fracture of the base of the 2nd metatarsal. 2. Multi joint degenerative disease. 3. Consider MRI if indicated. Reviewed, Interpreted and Dictated by Didi Gee MD Transcribed by Bella Daily Authenticated and [facility]
== END ==
LOC: RAD 13:04
PROVIDERS: PCP Emergency Medicine; Visit Provider Emergency Medicine
DX: M79.671 Pain in right foot (principal)
CPT/HCPCS: 73630

== ENCOUNTER → 2022-09-10 09:07 | Outpatient (CLI) | payer BC, SELFPAY ==
--- NOTE | 2022-09-10 09:07 | XR_ITS ---
FINAL REPORT CLINICAL HISTORY: bone fx rt foot FINDINGS: DEXA BONE DENSITY Using L1-4, the bone mineral density of the spine is 1.055 g/cm2, corresponding to T-score of 0.1. Using the left hip, the bone mineral density of the femoral neck is 0.792 g/cm2, corresponding to a T-score of -0.5. Using the right hip, the bone mineral density of the femoral neck is 0.716 g/cm2, corresponding to a T-score of -1.2. FRAX 10 year fracture risk is 6.0 for a hip fracture and 0.6 for a major osteoporotic fracture. NOTE: T-score: Standard deviation compared with peak bone mass of young adult mean. *Following the recommendations of the International Society of Bone densitometry, classification of hip BMD is based on the lower of two T-scores; total hip or femoral neck. IMPRESSION: Diminished bone mineral density of the right hip consistent with osteopenia. Normal bone mineral density of the lumbar spine and left hip. Reviewed, Interpreted and Dictated by Didi Gee MD Transcribed by Sweta Weber Authenticated and [facility]
--- NOTE | 2022-09-10 10:27 | XR_ITS ---
FINAL REPORT CLINICAL HISTORY: foot pain FINDINGS: AP, oblique and lateral views of the left foot were obtained. There is no prior exam for comparison. There is no acute fracture or dislocation. There is mild degenerative disease of the midfoot and 1st MTP joint. Soft tissues are normal. IMPRESSION: Mild degenerative disease with no acute osseous abnormality of the left foot. Reviewed, Interpreted and Dictated by Didi Gee MD Transcribed by Bella Daily Authenticated and [facility]
--- NOTE | 2022-09-10 10:27 | XR_ITS ---
FINAL REPORT CLINICAL HISTORY: foot pain COMPARISON: 08/28/2022 FINDINGS: AP, oblique and lateral views of the right foot were obtained. There is no acute fracture or dislocation. Again seen is a fracture of the medial base of the 2nd metatarsal. There is multi joint degenerative disease which is stable. The midfoot arch appears stable on the lateral view. No acute soft tissue abnormality. IMPRESSION: 1. No new abnormality. 2. Presumed old fracture at the base of the 2nd metatarsal. 3. Multi joint degenerative disease. Reviewed, Interpreted and Dictated by Didi Gee MD Transcribed by Bella Daily Authenticated and [facility]
== END ==
LOC: RAD 09:07
PROVIDERS: PCP Emergency Medicine; Visit Provider Emergency Medicine
DX: S93.324A Dislocation of tarsometatarsal joint of right foot, initial encounter (principal); S93.621A Sprain of tarsometatarsal ligament of right foot, initial encounter; T14.8XXA Other injury of unspecified body region, initial encounter; M85.89 Other specified disorders of bone density and structure, multiple sites
CPT/HCPCS: 73630; 77080

== ENCOUNTER → 2022-09-13 14:22 | Outpatient (CLI) | payer BC, SELFPAY ==
--- NOTE | 2022-09-13 14:23 | MR_ITS ---
FINAL REPORT TECHNIQUE: Multi planar MR imaging was performed through the right foot. CLINICAL HISTORY: foot pain right foot pain around 2nd metatrarsal pain with swelling since may 2022 FINDINGS: There is multifocal bone marrow edema with edema in the anterior talus, navicular, all 3 cuneiforms, the cuboid and the 2nd metatarsal. Deformity to the medial base of the 2nd metatarsal is less well appreciated on MRI. This bone marrow edema may be related to multi joint degenerative disease or early neuropathic changes as there is a degree of pes planus deformity. Marrow edema in of the 2nd metatarsal extends to the distal shaft. Stress injury/fracture is a consideration. The Lisfranc joint is intact. The Lisfranc ligament is intact. The flexor and extensor tendons to the toes are intact. The Achilles tendon is intact. The plantar fascia is normal. There is nonspecific soft tissue edema coursing along the midfoot. There are small joint effusions at the hindfoot and midfoot. IMPRESSION: 1. Multi focal bone marrow edema as detailed above, this could be related to degenerative disease or early neuropathic changes, osteomyelitis thought less likely. 2. Bone marrow edema in the 2nd metatarsal shaft, stress injury favored. 3. Nonspecific soft tissue edema with joint effusions. Reviewed, Interpreted and Dictated by Didi Gee MD Transcribed by Bella Daily Authenticated and [facility]
== END ==
LOC: RAD 14:23
PROVIDERS: PCP Emergency Medicine; Visit Provider Emergency Medicine
DX: M79.671 Pain in right foot (principal)
CPT/HCPCS: 73718

== ENCOUNTER → 2022-10-02 23:00 | Outpatient (CLI) | payer BC, SELFPAY ==
[2022-10-02 19:19] LABS: Amphetamine/Metha Screen,Urine Negative ng/ml (<1000)
[2022-10-02 19:21] LABS: Benzodiazepines Screen,Urine Negative ng/ml (<200)
[2022-10-02 19:22] LABS: Cannabinoid Screen,Urine Positive ng/ml (<50); Cocaine Screen,Urine Negative ng/ml (<300)
[2022-10-02 19:24] LABS: Methadone Screen,Urine Negative ng/ml (<300); Opiate Screen,Urine Negative ng/ml (<300)
[2022-10-02 19:35] LABS: Phencyclidine Screen,Urine Negative ng/ml (<25)
[2022-10-02 19:38] LABS: Barbiturates Screen,Urine Negative ng/ml (<200)
== END ==
PROVIDERS: PCP Emergency Medicine; Visit Provider Emergency Medicine
DX: Z79.899 Other long term (current) drug therapy (principal)
CPT/HCPCS: 80305

== ENCOUNTER → 2022-10-17 12:57 | Outpatient (CLI) | payer BC, SELFPAY ==
--- NOTE | 2022-10-17 13:00 | XR_ITS ---
FINAL REPORT CLINICAL HISTORY: foot pain COMPARISON: 09/10/2022 FINDINGS: RIGHT FOOT Three views of the right foot were obtained. There is an ununited fracture through the medial base of the 2nd metatarsal which is similar to previous. There are moderate hypertrophic changes over the dorsal intertarsal joints. There is a small plantar spur. The soft tissues are unremarkable. IMPRESSION: Ununited fracture through the medial base of the 2nd metatarsal, similar to previous. Reviewed, Interpreted and Dictated by Virgil Cruz MD Transcribed by Bella Daily Authenticated and [facility]
== END ==
LOC: RAD 12:57
PROVIDERS: PCP Emergency Medicine; Visit Provider Podiatrist
DX: M79.671 Pain in right foot (principal); M14.671 Charcot's joint, right ankle and foot
CPT/HCPCS: 73630

== ENCOUNTER → 2022-11-12 14:42 | Outpatient (CLI) | payer BC, SELFPAY ==
--- NOTE | 2022-11-12 14:50 | XR_ITS ---
FINAL REPORT CLINICAL HISTORY: Right foot Charcot FINDINGS: RIGHT FOOT 3 views of the right foot were obtained. There is no acute fracture. There are hypertrophic changes at the intertarsal and tarsometatarsal joints which may be due to early neuropathic changes. There osteophytes along the dorsal aspect of the ankle. Soft tissues are unremarkable. IMPRESSION: Degenerative changes as above. Reviewed, Interpreted and Dictated by Virgil Cruz MD Transcribed by Sweta Weber Authenticated and [facility]
== END ==
LOC: RAD 14:43
PROVIDERS: PCP Emergency Medicine; Visit Provider Podiatrist
DX: M79.671 Pain in right foot (principal); M14.671 Charcot's joint, right ankle and foot
CPT/HCPCS: 73630

== ENCOUNTER → 2023-01-21 23:36 | Outpatient (CLI) | payer BC, SELFPAY ==
[2023-01-21 20:39] LABS: Barbiturates Screen,Urine Negative ng/ml (<200)
[2023-01-21 20:40] LABS: Benzodiazepines Screen,Urine Negative ng/ml (<200)
[2023-01-21 20:41] LABS: Cannabinoid Screen,Urine Positive ng/ml (<50)
[2023-01-21 20:43] LABS: Cocaine Screen,Urine Negative ng/ml (<300)
[2023-01-21 20:44] LABS: Methadone Screen,Urine Negative ng/ml (<300); Opiate Screen,Urine Negative ng/ml (<300)
[2023-01-21 20:45] LABS: Phencyclidine Screen,Urine Negative ng/ml (<25)
[2023-01-21 20:51] LABS: Amphetamine/Metha Screen,Urine Negative ng/ml (<1000)
== END ==
PROVIDERS: PCP Emergency Medicine; Visit Provider Emergency Medicine
DX: Z79.899 Other long term (current) drug therapy (principal)
CPT/HCPCS: 80305

== ENCOUNTER → 2023-01-28 08:00 | Outpatient (CLI) | payer BC, SELFPAY ==
--- NOTE | 2023-01-28 08:05 | XR_ITS ---
FINAL REPORT CLINICAL HISTORY: Foot Pain FINDINGS: AP, oblique and lateral views of the left foot were obtained. There is no prior exam for comparison. There is a lucency through the medial base of the 5th proximal phalanx, fracture is not excluded. This is not seen on the oblique view. There is mild multi joint degenerative disease. Soft tissues are normal. IMPRESSION: Lucency through the 5th proximal phalanx, fracture is not excluded. Reviewed, Interpreted and Dictated by Didi Gee MD Transcribed by Betzaida Parada Authenticated and [facility]
--- NOTE | 2023-01-28 08:05 | XR_ITS ---
FINAL REPORT CLINICAL HISTORY: rt foot fx, pain/swelling in rt foot COMPARISON: 11/12/2022 FINDINGS: AP, oblique and lateral views of the right foot were obtained. There is no acute fracture or dislocation. There is an old fracture at the medial base of the 2nd metatarsal, unchanged. There is degenerative disease of the midfoot, unchanged. There is slight worsening in the soft tissue edema along the dorsal foot. IMPRESSION: No acute osseous abnormality of the right foot. Slight worsening in the soft tissue edema. Reviewed, Interpreted and Dictated by Didi Gee MD Transcribed by Betzaida Parada Authenticated and [facility]
== END ==
PROVIDERS: PCP Emergency Medicine; Visit Provider Podiatrist
DX: M79.671 Pain in right foot (principal); M79.672 Pain in left foot
CPT/HCPCS: 73630

== ENCOUNTER → 2023-05-12 08:48 | Outpatient (CLI) | payer BC, SELFPAY ==
[2023-05-12 20:35] LABS: Alanine Aminotransferase 28 U/L (12-78); Albumin Level 4.6 g/dl (3.5-5.0); Albumin/Globulin Ratio 1.5 (1.1-1.8); Alkaline Phosphatase 128 U/L (38-126); Aspartate Amino Transferase 40 U/L (14-36); Bilirubin,Total 0.4 mg/dl (0.2-1.3); Blood Urea Nitrogen 12 mg/dl (7-17); Calcium 9.5 mg/dl (8.4-10.2); Carbon Dioxide 30 mmol/L (22.0-30.0); Chloride 101 mmol/L (98-107); Chol/HDL Ratio 5.3 (1-3.5); Cholesterol 302 mg/dl (140-200); Estimated Glomerular Filt Rate 65 ml/min (>60); GFR (African American) 79 ML/MIN (>60); Globulin 3.1 g/dL (1.3-3.2); Glucose 96 mg/dl (74-100); HDL Cholesterol 57 mg/dl (40-60); Sodium 140 mmol/L (136-145); Total Protein,Serum 7.7 g/dl (6.3-8.2)
[2023-05-12 20:46] LABS: Direct LDL Cholesterol 135.75 mg/dL (100-129)
[2023-05-12 20:51] LABS: 25-OH Vitamin D, Total 23.5 ng/mL (30-100); T4 (Thyroxine) 9.6 ug/dl (5.53-11.0)
[2023-05-12 20:58] LABS: Triglycerides 481 mg/dl (30-150)
[2023-05-12 21:05] LABS: Thyroid Stimulating Hormone 1.49 uIU/mL (0.465-4.68)
[2023-05-12 21:35] LABS: Basophils % 0.3 % (0.1-2.0); Eosinophils # 0.2 K/mm3 (0.0-0.4); Eosinophils % 2.3 % (0.1-12.0); Hematocrit 40.4 % (37.0-47.0); Hemoglobin 13.8 g/dL (12.2-16.2); Lymphocytes # 1.7 K/mm3 (0.7-4.5); Mean Corpuscular HGB Conc 34.1 g/dL (31.8-35.4); Mean Corpuscular Hemoglobin 33.3 pg (27.0-31.2); Mean Corpuscular Volume 97.8 fl (81-99); Mean Platelet Volume 11.2 fl (7.4-10.4); Monocytes # 0.7 K/mm3 (0.1-1.0); Monocytes % 7.1 % (1.7-9.3); Neutrophils # 6.8 K/mm3 (1.8-7.8); Neutrophils % 72.4 % (37.0-80.0); Platelet Count 261 K/mm3 (142-424); Red Blood Count 4.13 M/mm3 (4.20-5.40); White Blood Count 9.4 K/mm3 (4.8-10.8)
[2023-05-12 23:14] LABS: Amphetamine/Metha Screen,Urine Negative ng/ml (<1000)
[2023-05-12 23:15] LABS: Barbiturates Screen,Urine Negative ng/ml (<200)
[2023-05-12 23:17] LABS: Benzodiazepines Screen,Urine Negative ng/ml (<200); Cannabinoid Screen,Urine Positive ng/ml (<50)
[2023-05-12 23:18] LABS: Cocaine Screen,Urine Negative ng/ml (<300)
[2023-05-12 23:19] LABS: Methadone Screen,Urine Negative ng/ml (<300); Opiate Screen,Urine Negative ng/ml (<300)
[2023-05-12 23:20] LABS: Phencyclidine Screen,Urine Negative ng/ml (<25)
== END ==
LOC: LAB.DROPOF 05-13 10:59
PROVIDERS: PCP Emergency Medicine; Visit Provider Emergency Medicine
DX: G62.9 Polyneuropathy, unspecified (principal); Z79.899 Other long term (current) drug therapy; E55.9 Vitamin D deficiency, unspecified; Z68.30 Body mass index [BMI] 30.0-30.9, adult
CPT/HCPCS: 80053; 80061; 80305; 82306; 84436; 84443; 85025

== ENCOUNTER → 2023-06-07 12:59 | Outpatient (CLI) | payer BC, SELFPAY ==
[2023-06-08 10:49] LABS: HBsAg Screen Negative (Negative); HCV Ab Non Reactive (Non Reactive); Hep A Ab, IGM Negative (Negative); Hep B Core Ab, IgM Negative (Negative)
== END ==
LOC: LAB 12:59
PROVIDERS: PCP Emergency Medicine; Visit Provider Emergency Medicine
DX: G62.1 Alcoholic polyneuropathy (principal)
CPT/HCPCS: 36415; 80074

== ENCOUNTER → 2023-07-09 08:40 | Outpatient (CLI) | payer BC, SELFPAY ==
[2023-07-09 23:23] LABS: Amphetamine/Metha Screen,Urine Negative ng/ml (<1000)
[2023-07-09 23:24] LABS: Barbiturates Screen,Urine Negative ng/ml (<200)
[2023-07-09 23:25] LABS: Benzodiazepines Screen,Urine Negative ng/ml (<200); Cannabinoid Screen,Urine Positive ng/ml (<50)
[2023-07-09 23:26] LABS: Cocaine Screen,Urine Negative ng/ml (<300)
[2023-07-09 23:27] LABS: Methadone Screen,Urine Negative ng/ml (<300); Opiate Screen,Urine Positive ng/ml (<300)
[2023-07-09 23:28] LABS: Phencyclidine Screen,Urine Negative ng/ml (<25)
[2023-07-15 08:59] LABS: Opiates Negative ng/mL (Cutoff=100)
== END ==
LOC: LAB.DROPOF 07-16 08:41
PROVIDERS: PCP Family Medicine; Visit Provider Family Medicine
DX: Z79.899 Other long term (current) drug therapy (principal)
CPT/HCPCS: 80307; 80361; G0480

== ENCOUNTER 2023-08-11 11:39 | Outpatient (CLI) | payer BC, SELFPAY ==
[2023-08-11 12:12] LABS: Amphetamine/Metha Screen,Urine Negative ng/ml (<1000)
[2023-08-11 12:13] LABS: Benzodiazepines Screen,Urine Negative ng/ml (<200)
[2023-08-11 12:14] LABS: Cannabinoid Screen,Urine Negative ng/ml (<50); Cocaine Screen,Urine Negative ng/ml (<300)
[2023-08-11 12:16] LABS: Opiate Screen,Urine Positive ng/ml (<300); Phencyclidine Screen,Urine Negative ng/ml (<25)
[2023-08-11 12:17] LABS: Alanine Aminotransferase 28 U/L (12-78); Albumin Level 4.6 g/dl (3.5-5.0); Albumin/Globulin Ratio 1.6 (1.1-1.8); Alkaline Phosphatase 103 U/L (38-126); Anion Gap 14.7 mEq/L (5-15); Aspartate Amino Transferase 39 U/L (14-36); Bilirubin,Direct 0.4 mg/dl (0.0-0.4); Bilirubin,Indirect 0.1 mg/dL (0.0-0.9); Bilirubin,Total 0.5 mg/dl (0.2-1.3); Blood Urea Nitrogen 7 mg/dl (7-17); Calcium 9.5 mg/dl (8.4-10.2); Carbon Dioxide 29 mmol/L (22.0-30.0); Chloride 99 mmol/L (98-107); Chol/HDL Ratio 5.4 (1-3.5); Cholesterol 305 mg/dl (140-200); Estimated Glomerular Filt Rate 65 ml/min (>60); GFR (African American) 79 ML/MIN (>60); Globulin 2.9 g/dL (1.3-3.2); Glucose 114 mg/dl (74-100); HDL Cholesterol 57 mg/dl (40-60); Potassium 3.7 mmoL/L (3.5-5.1); Sodium 139 mmol/L (136-145); Total Protein,Serum 7.5 g/dl (6.3-8.2)
[2023-08-11 12:18] LABS: Triglycerides 467 mg/dl (30-150)
[2023-08-11 12:24] LABS: Barbiturates Screen,Urine Negative ng/ml (<200)
[2023-08-11 12:28] LABS: Direct LDL Cholesterol 136.95 mg/dL (100-129)
[2023-08-11 12:45] LABS: Methadone Screen,Urine Negative ng/ml (<300)
[2023-08-19 09:08] LABS: Opiates Negative (Cutoff=100); Oxycodone (GC/MS) 6235 ng/mL (Cutoff=100); Oxymorphone (GC/MS) 1310 ng/mL (Cutoff=100)
== END 2023-08-11 23:59 ==
LOC: LAB.DROPOF 11:40
PROVIDERS: PCP Family Medicine; Visit Provider Family Medicine
DX: E78.5 Hyperlipidemia, unspecified (principal); E66.9 Obesity, unspecified; Z68.30 Body mass index [BMI] 30.0-30.9, adult; Z79.899 Other long term (current) drug therapy
CPT/HCPCS: 80053; 80061; 80076; 80307; 80361; 80365; G0480

== ENCOUNTER 2024-01-06 09:06 | Outpatient (CLI) | payer BC, SELFPAY ==
--- NOTE | 2024-01-06 09:17 | XR_ITS ---
FINAL REPORT CLINICAL HISTORY: foot pain COMPARISON: 01/28/2023 FINDINGS: RIGHT FOOT 3 views of the right foot were obtained. There is no acute fracture or dislocation. There are moderate to severe degenerative changes of the midfoot, slightly worse compared to the prior study. Mild calcaneal spurring is noted. Soft tissues are unremarkable. IMPRESSION: Slightly worsened moderate to severe degenerative changes. Reviewed, Interpreted and Dictated by Sarwat Pineda MD Transcribed by Kaila Madrid Authenticated and [facility]
--- NOTE | 2024-01-06 09:17 | XR_ITS ---
FINAL REPORT CLINICAL HISTORY: foot pain COMPARISON: 01/28/2023 FINDINGS: LEFT FOOT Three views of the left foot demonstrate no acute fracture or dislocation. Mild degenerative changes of the first MTP with hallux valgus deformity, slightly worse compared to the prior study. There is mild midfoot degenerative change. The soft tissues are unremarkable. IMPRESSION: Slightly worsened mild degenerative changes. Reviewed, Interpreted and Dictated by Sarwat Pineda MD Transcribed by Kaila Madrid Authenticated and [facility]
== END 2024-01-06 23:59 | disposition home or self-care (01) ==
LOC: RAD 09:11
PROVIDERS: PCP Internal Medicine; Visit Provider Podiatrist
DX: M79.671 Pain in right foot (principal); M79.672 Pain in left foot
CPT/HCPCS: 73630

== ENCOUNTER 2024-01-12 12:49 | Outpatient (CLI) | payer OTHER, SELFPAY ==
--- NOTE | 2024-01-12 12:52 | US_ITS ---
FINAL REPORT CLINICAL HISTORY: Decreased sensation PAIN CLAUDICATION COMPARISON: None FINDINGS: LOWER EXTREMITY SEGMENTAL PRESSURE MEASUREMENTS FINDINGS: Pressure indices are as follows: RIGHT LOWER EXTREMITY: Upper thigh: 1.15 Calf: 1.15 Ankle, posterior tibial artery: 1.09 Ankle, dorsalis pedis: 1.22 Toe: 0.95 Comments: Normal LEFT LOWER EXTREMITY: Upper thigh: 1.23 Calf: 1.21 Ankle, posterior tibial artery: 1.14 Ankle, dorsalis pedis: 1.18 Toe: 0.94 Comments: Normal IMPRESSION: Normal bilateral ABIs. Reviewed, Interpreted and Dictated by Jaron Ocampo III, MD Transcribed by Nancy Catalan Authenticated and [facility]
== END 2024-01-12 23:59 | disposition home or self-care (01) ==
LOC: RT 12:50
PROVIDERS: PCP Family Medicine; Visit Provider Podiatrist
DX: M79.671 Pain in right foot (principal); M79.672 Pain in left foot; R20.8 Other disturbances of skin sensation
CPT/HCPCS: 93923

== ENCOUNTER 2024-08-16 21:42 | Outpatient (CLI) | payer BC, SELFPAY ==
[2024-08-16 22:41] LABS: Basophils # 0.1 K/mm3 (0-0.2); Basophils % 1.1 % (0.1-2.0); Eosinophils # 0.2 K/mm3 (0.0-0.4); Eosinophils % 2.3 % (0.1-12.0); Hemoglobin 14.2 g/dL (12.2-16.2); Lymphocytes # 1.6 K/mm3 (0.7-4.5); Lymphocytes % 19.8 % (10-50); Mean Corpuscular HGB Conc 32.3 g/dL (31.8-35.4); Mean Corpuscular Hemoglobin 31.6 pg (27.0-31.2); Mean Corpuscular Volume 97.8 fl (81-99); Monocytes # 0.6 K/mm3 (0.1-1.0); Monocytes % 7.6 % (1.7-9.3); Neutrophils # 5.6 K/mm3 (1.8-7.8); Neutrophils % 68.7 % (37.0-80.0); Platelet Count 215 K/mm3 (142-424); Red Cell Distribution Width 14.1 % (11.5-17.5); White Blood Count 8.1 K/mm3 (4.8-10.8)
[2024-08-16 23:21] LABS: Alanine Aminotransferase 33 U/L (12-78); Albumin Level 4.9 g/dl (3.5-5.0); Albumin/Globulin Ratio 2.2 (1.1-1.8); Alkaline Phosphatase 94 U/L (38-126); Anion Gap 16.8 mEq/L (5-15); Aspartate Amino Transferase 51 U/L (14-36); Bilirubin,Total 0.3 mg/dl (0.2-1.3); Blood Urea Nitrogen 11 mg/dl (7-17); Calcium 9.6 mg/dl (8.4-10.2); Carbon Dioxide 28 mmol/L (22.0-30.0); Chloride 96 mmol/L (98-107); Chol/HDL Ratio 5.4 (1-3.5); Cholesterol 297 mg/dl (140-200); Estimated Glomerular Filt Rate 65 ml/min (>60); GFR (African American) 78 ML/MIN (>60); Globulin 2.2 g/dL (1.3-3.2); Glucose 93 mg/dl (74-100); HDL Cholesterol 55 mg/dl (40-60); Potassium 3.8 mmoL/L (3.5-5.1); Sodium 137 mmol/L (136-145); Total Protein,Serum 7.1 g/dl (6.3-8.2)
[2024-08-16 23:29] LABS: Triglycerides 466 mg/dl (30-150)
[2024-08-16 23:38] LABS: 25-OH Vitamin D, Total 22.8 ng/mL (30-100)
[2024-08-16 23:52] LABS: Thyroid Stimulating Hormone 1.99 uIU/mL (0.465-4.68)
[2024-08-17 00:21] LABS: HIV Combo NEGATIVE (Negative)
[2024-08-17 00:29] LABS: Hepatitis C Ab Qual. W/ RFX NEGATIVE (Negative)
== END 2024-08-16 23:59 | disposition home or self-care (01) ==
LOC: LAB 21:43
PROVIDERS: PCP Family Medicine; Visit Provider Family Medicine
DX: Z00.00 Encounter for general adult medical examination without abnormal findings (principal); E55.9 Vitamin D deficiency, unspecified; Z11.59 Encounter for screening for other viral diseases; E78.5 Hyperlipidemia, unspecified
CPT/HCPCS: 80053; 80061; 82306; 83036; 84443; 85025; 86803; 87389

== ENCOUNTER 2024-08-25 13:36 | Outpatient (CLI) | payer BC, SELFPAY ==
--- NOTE | 2024-08-25 13:36 | MM_ITS ---
PROCEDURE INFORMATION: Exam: Bilateral Screening 3D Mammography Exam date and time: 08/25/2024 1:50 PM Age: 59 years old Clinical indication: Screening exam. TECHNIQUE: Imaging protocol: Bilateral Screening tomosynthesis and 2D mammography including computer-aided detection (CAD) when performed. COMPARISON: [facility] DIG MAMM-SCREEN JESSICA 01/31/2016 3:23 PM FINDINGS: MAMMOGRAPHY: Breast composition: There are scattered areas of fibroglandular density. Mass: No suspicious masses. Architectural distortion: None. Calcifications: No suspicious calcifications. Asymmetric density: None. Skin thickening: None. Axillary adenopathy: None. IMPRESSION: No mammographic evidence of malignancy. Annual screening is recommended unless otherwise clinically indicated. ASSESSMENT: BI-RADS Category 1: Negative.
== END 2024-08-25 23:59 | disposition home or self-care (01) ==
LOC: RAD 13:36
PROVIDERS: PCP Family Medicine; Visit Provider Family Medicine
DX: Z12.31 Encounter for screening mammogram for malignant neoplasm of breast (principal)
CPT/HCPCS: 77063; 77067

== ENCOUNTER 2024-12-03 12:40 | Emergency (ER) | payer BC, SELFPAY ==
[2024-12-03 12:45] VITALS: BP 162/86; PULSE 88; RESP 16; TEMP 36.5; O2SAT 98; BMI 31.3
--- NOTE | 2024-12-03 13:01 | HMH.EDGENADL ---
Discharge Plan Disposition Patient Disposition: Home, Self-Care Condition: Good Prescriptions Prescriptions: New methocarbamol 750 mg tablet 750 mg PO Q6H PRN (Reason: muscle spasm) Qty: 20 0RF prednisone 50 mg tablet 50 mg PO DAILY 5 Days Qty: 5 0RF No Action alendronate 70 mg tablet See Rx Instructions .ROUTE .COMPLEX Qty: 4 4RF Dose Instruction: TAKE 1 TABLET BY MOUTH ONCE A WEEK Rx Instructions: TAKE 1 TABLET BY MOUTH ONCE A WEEK atorvastatin [Lipitor] 40 mg tablet 40 mg PO DAILY Qty: 30 2RF cholecalciferol (vitamin D3) 25 mcg (1,000 unit) capsule 25 mcg PO DAILY Qty: 30 3RF furosemide 40 mg tablet 40 mg PO DAILY Qty: 90 1RF gabapentin 600 mg tablet 600 mg PO TID Qty: 90 2RF Folinic-Plus 4-50-2 mg tablet 1 tab-cap PO DAILY 30 Days Qty: 30 3RF potassium chloride 10 mEq tablet extended release See Rx Instructions .ROUTE .COMPLEX Qty: 90 2RF Dose Instruction: TAKE ONE TABLET BY MOUTH EVERY DAY Rx Instructions: TAKE ONE TABLET BY MOUTH EVERY DAY oxycodone-acetaminophen 10-325 mg tablet 1 tab PO BID PRN (Reason: pain) 30 Days Qty: 60 0RF ibuprofen 800 mg tablet See Rx Instructions .ROUTE .COMPLEX Qty: 30 2RF Dose Instruction: TAKE ONE TABLET BY MOUTH ONCE DAILY NEEDED FOR PAIN --TAKE WITH FOOD-- Rx Instructions: TAKE ONE TABLET BY MOUTH ONCE DAILY NEEDED FOR PAIN --TAKE WITH FOOD-- Referrals Follow up/Referrals: Aung Lyons MD [Staff Physician] - See instructions (Discogenic back pain with neurogenic claudication) Prema Stewart APRN [Primary Care Provider] - See instructions Activity Restrictions/Add. Instructions Additional Instructions/Restrictions: I have referred you to Dr. Lyons. Please call to make your appointment. I have sent in steroids and a muscle relaxer to your pharmacy. If you have any persistent new or worsening signs or symptoms follow-up with your PCP return to the ER as needed. Clinical Impressions Clinical Impression: Degeneration of intervertebral disc of lumbar region with discogenic back pain, Lumbosacral stenosis with neurogenic claudication Instructions Patient Instructions: DI for Low Back Pain Print Language Print Language: Swedish Discharge ED Provider: Martín Hollins General Adult HPI <SREE Dickinson - Last Filed: 12/03/24 21:30> General Chief complaint: Back Pain/Injury Stated complaint: Lower Back Pain Time Seen by Provider: 12/03/24 13:00 Mode of Arrival: Ambulatory Source of Information: Patient Description of Symptoms (Recalled from ER Triage Doc. by RN): Pt presents for evaluation of back pain x 1 week. Pt states her pain started at work. Pt has prescribed pain medications at home and it is not helping her pain. Pt states it is affecting her adls. pt has a hx of back surgery History of Present Illness HPI narrative: Patient presents for evaluation of low back pain. Patient has a longstanding history of degenerative lumbar disc disease and previous spinal discectomy. Patient states that her approximately a week ago she began having pain in her lumbar region that has intermittently radiated down 1 or both legs. She denies any loss of motor or sensory incontinence of urine or bowel. She denies any trauma chest pain shortness of breath fever chills hemoptysis hematochezia melena nausea vomiting diarrhea focal neurologic deficits. Her normal home regimen has not been helping with Tylenol and Percocets. Related Data Previous Rx's ?Medication ?Instructions ?Recorded alendronate 70 mg tablet See Rx Instructions .Route 08/16/24 .COMPLEX #4 tabs atorvastatin 40 mg tablet (Lipitor) 40 mg PO DAILY #30 tabs 10/11/24 cholecalciferol (vitamin D3) 25 25 mcg PO DAILY #30 caps 11/12/24 mcg (1,000 unit) capsule furosemide 40 mg tablet 40 mg PO DAILY Fluid #90 tabs 11/12/24 gabapentin 600 mg tablet 600 mg PO TID #90 tabs 11/12/24 leucovorin 4 mg-pyridoxal 1 tab-cap PO DAILY nerve pain 30 11/12/24 phosphate 50 mg-mecobalamin 2 mg days #30 tabs tablet (Folinic-Plus) oxycodone-acetaminophen 10 mg-325 1 tab PO BID PRN pain 30 days #60 11/12/24 mg tablet tabs potassium chloride 10 mEq See Rx Instructions .Route 11/12/24 tablet,extended release .COMPLEX #90 tabs ibuprofen 800 mg tablet See Rx Instructions .Route 11/30/24 .COMPLEX #30 tabs methocarbamol 750 mg tablet 750 mg PO Q6H PRN muscle spasm #20 12/03/24 tabs prednisone 50 mg tablet 50 mg PO DAILY 5 days #5 tabs 12/03/24 Allergies Allergy/AdvReac Type Severity Reaction Status Date / Time No Known Allergies Allergy Verified 10/11/24 13:07 PFS <SREE Dickinson - Last Filed: 12/03/24 21:30> [facility] Disclaimer: The information contained in this section may have been updated after the patient was seen, as this information can be updated by other users. Medical History Ventral hernia Abdominal pain Chronic alcohol abuse Paresthesias Hypercalcemia Ascites Escherichia coli urinary tract infection SIRS (systemic inflammatory response syndrome) UTI (urinary tract infection) Dehydration Chest pain Hypokalemia Alcohol intoxication Social History Smoking Status: Current every day smoker tobacco type: cigarettes packs per day: 1 second hand exposure: No alcohol intake: former substance use type: former substance user, marijuana, opiates and prescription drug current occupational status: unemployed Travel in the last 8 weeks?: None household members: none housing: house caffeine: Yes Have you lived/traveled outside US in past 30 days?: No Contact w/someone who lives/traveled outside US past 30 days?: No Exposure to someone with infectious disease in past 14 days?: No Do you have a fever (greater than 100.4 F or 38 C)?: No Have you tested positive for COVID-19?: No Exposed to someone with COVID-19 in past 14 days?: No Do you have a sore throat?: No Do you have a cough?: No Do you have any weakness?: No Do you have any diarrhea?: No Are you experiencing any unusual bleeding?: No Do you have any muscle aches/pain?: No Do you have any abdominal pain?: No Are you experiencing loss of taste or smell?: No Other Medical History Have you received the Flu Vaccine for this season: Yes Have you received the Pneumonia Vaccine: No <SREE Dickinson - Last Filed: 12/03/24 21:30> ROS Obtained: Yes Systems reviewed as appropriate & no additional complaints except as documented Physical Exam <SREE Dickinson - Last Filed: 12/03/24 21:30> General General appearance: alert Respiratory Respiratory exam: Present normal lung sounds bilaterally Cardiovascular Cardiovascular exam: Present regular rate Neurological Exam Neurological exam: Present alert and oriented X3 Medical Decision Making <SREE Dickinson - Last Filed: 12/03/24 21:30> Medical Records Medical records reviewed: Yes I reviewed the patient's medical records. Screening: Per USPSTF and CDC recommendations, given the prevalence of disease in our region, it is our hospital?s policy to screen for HIV and viral Hepatitis for all patients aged 18 and over and those with ongoing risk factors. Sen Inquiry Pt receiving controlled substance: No Vital Signs: 12/03/24 12:45 12/03/24 15:03 Temperature 97.7 F 98.1 F Temperature Source Oral Oral Pulse Rate 77 Pulse Rate [Right] 88 Respiratory Rate 16 18 Blood Pressure 150/83 H Blood Pressure [Right Arm] 162/86 H Blood Pressure Mean [Right Arm] 111 Blood Pressure Source Automatic Cuff Blood Pressure Source [Right Arm] Automatic Cuff Blood Pressure Position Sitting Blood Pressure Position [Right Arm] Sitting 02 Sat by Pulse Oximetry 98 Oxygen Delivery Method Room Air Room Air Lab Data Lab results reviewed: Yes I reviewed the patient's lab results. Orders (Tests/Meds): ED MEDICATIONS Discontinued Medications Generic Name Dose Route Start Last Admin Trade Name Freq PRN Reason Stop Dose Admin Methocarbamol 500 mg 12/03/24 13:20 12/03/24 13:40 Methocarbamol 500mg Tablet PO 12/03/24 13:21 500 mg ONCE ONE Administration Methylprednisolone Sodium Succinate 125 mg 12/03/24 13:20 12/03/24 13:40 Methylprednisolone Sod Succ 125mg Vial IM 12/03/24 13:21 125 mg ONCE ONE Administration ORDERS Category Date Time Status CT lumbar spine wo con Stat Cat Scan 12/03/24 13:20 Completed Medical Decision Narrative: In summary patient is a 59-year-old female who presents to the emergency department for evaluation of lumbar low back pain with radiating pain to her legs. Patient is hemodynamically stable upon arrival, afebrile. Physical exam is remarkable for lumbar and lumbar paraspinous tenderness on palpation but no palpable bony deformities. There is no contusions abrasions ecchymosis induration. Patient is neurovascularly intact in all 4 extremities and has full range of motion and is ambulatory in the emergency department currently.. Differential diagnosis includes discogenic back pain with neurogenic claudication versus disc herniation versus compression fracture versus degenerative spine disease etc. Initial workup will be conducted with CT scan lumbar spine. Initial interventions include Solu-Medrol IM Robaxin. Initial workup reviewed by me and my informative rotation of her imaging shows lumbar degenerative disc disease with neuroforaminal stenosis but no other acute fractures. No acute processes identified prior to radiology read. Please see final read for formal interpretation. Upon repeat evaluation moderate improvement after initial intervention. Given this patient is appropriate for discharge with prescription for Robaxin and referral to Dr. Lyons for further management care. Patient given strict return precautions <Martín Hollins MD - Last Filed: 12/03/24 23:36> Vital Signs: 12/03/24 12:45 12/03/24 15:03 Temperature 97.7 F 98.1 F Temperature Source Oral Oral Pulse Rate 77 Pulse Rate [Right] 88 Respiratory Rate 16 18 Blood Pressure 150/83 H Blood Pressure [Right Arm] 162/86 H Blood Pressure Mean [Right Arm] 111 Blood Pressure Source Automatic Cuff Blood Pressure Source [Right Arm] Automatic Cuff Blood Pressure Position Sitting Blood Pressure Position [Right Arm] Sitting 02 Sat by Pulse Oximetry 98 Oxygen Delivery Method Room Air Room Air Orders (Tests/Meds): ED MEDICATIONS Discontinued Medications Generic Name Dose Route Start Last Admin Trade Name Garettq PRN Reason Stop Dose Admin Methocarbamol 500 mg 12/03/24 13:20 12/03/24 13:40 Methocarbamol 500mg Tablet PO 12/03/24 13:21 500 mg ONCE ONE Administration Methylprednisolone Sodium Succinate 125 mg 12/03/24 13:20 12/03/24 13:40 Methylprednisolone Sod Succ 125mg Vial IM 12/03/24 13:21 125 mg ONCE ONE Administration ORDERS Category Date Time Status CT lumbar spine wo con Stat Cat Scan 12/03/24 13:20 Completed Medical Decision Narrative: In summary patient is a 59-year-old female who presents to the emergency department for evaluation of lumbar low back pain with radiating pain to her legs. Patient is hemodynamically stable upon arrival, afebrile. Physical exam is remarkable for lumbar and lumbar paraspinous tenderness on palpation but no palpable bony deformities. There is no contusions abrasions ecchymosis induration. Patient is neurovascularly intact in all 4 extremities and has full range of motion and is ambulatory in the emergency department currently.. Differential diagnosis includes discogenic back pain with neurogenic claudication versus disc herniation versus compression fracture versus degenerative spine disease etc. Initial workup will be conducted with CT scan lumbar spine. Initial interventions include Solu-Medrol IM Robaxin. Initial workup reviewed by me and my informative rotation of her imaging shows lumbar degenerative disc disease with neuroforaminal stenosis but no other acute fractures. No acute processes identified prior to radiology read. Please see final read for formal interpretation. Upon repeat evaluation moderate improvement after initial intervention. Given this patient is appropriate for discharge with prescription for Robaxin and referral to Dr. Lyons for further management care. Patient given strict return precautions. I was consulted by the GILLES, and we discussed the complexity of the problems being addressed. I approve the treatment and management plan for this patient's care in the emergency department, thus performing a substantive portion of the medical decision making. Martín Hollins MD Critical Care <SREE Dickinson - Last Filed: 12/03/24 21:30> Critical Care Time Critical Care Time: No
--- NOTE | 2024-12-03 13:20 | CT_ITS ---
FINAL REPORT CLINICAL HISTORY: Discogenic back pain with neurogenic claudication COMPARISON: None FINDINGS: CT LUMBAR SPINE TECHNIQUE: Thin section noncontrast axial CT with sagittal reconstructions This study was performed with techniques to keep radiation doses as low as reasonably achievable, (ALARA). Individualized dose reduction techniques using automated exposure control or adjustment of mA and/or kV according to the patient's size were employed. FINDINGS: No fracture is present. There is mild dextroscoliosis. No subluxation noted. T12-L1: No significant disc disease is present. There is no canal stenosis. L1-L2: No significant disc disease is present. There is no canal stenosis. L2-L3: No significant disc disease is present. There is no canal stenosis. L3-L4: Mild annular disc bulge with facet overgrowth. Mild bilateral neural foraminal narrowing. L4-L5: Moderate annular disc bulge. Moderate facet arthropathy. Moderate central canal stenosis. Severe bilateral neural foraminal narrowing. L5-S1: Mild annular disc bulge. Moderate facet arthropathy. Severe bilateral neural foraminal narrowing. IMPRESSION: Degenerative canal stenosis with neural foraminal narrowing in the lower lumbar spine. MRI follow-up may be a consideration. Reviewed, Interpreted and Dictated by Sarwat Pineda MD Transcribed by Kaila Madrid Authenticated and [facility]
[2024-12-03] MEDS: METHYLPREDNISOLONE SOD SUCC 125MG VIAL 125 MG IM (13:40)
[2024-12-03] MEDS: METHOCARBAMOL 500MG TABLET 500 MG PO (13:40)
[2024-12-03 15:03] VITALS: BP 150/83; PULSE 77; RESP 18; TEMP 36.7; O2SAT 98
== END 2024-12-03 15:05 | disposition home or self-care (01) ==
PROVIDERS: Emergency Provider Student in an Organized Health Care Education/Training Program; PCP Family Medicine
DX: M51.360 Other intervertebral disc degeneration, lumbar region with discogenic back pain only (principal); M48.07 Spinal stenosis, lumbosacral region; Z87.39 Personal history of other diseases of the musculoskeletal system and connective tissue; E83.52 Hypercalcemia; F17.210 Nicotine dependence, cigarettes, uncomplicated; Z11.4 Encounter for screening for human immunodeficiency virus [HIV]; Z20.5 Contact with and (suspected) exposure to viral hepatitis
CPT/HCPCS: 72131; 99284; J2919

== ENCOUNTER 2025-01-21 14:44 | Outpatient (CLI) | payer BC, SELFPAY ==
--- OUTSIDE RECORDS SUMMARY | 2025-01-13 10:40 | XMS_ITS | Encounter Summary ---
Author Organization Healthcare Address [address] 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 Name Role Phone Unavailable Primary Care Provider Unavailabl e Reason for Referral * Imaging (Routine) - Authorized Specialty Diagnoses / Procedures Referred By Contac t Referred To Contact Diagnoses Chronic bilateral low back pain with bilateral sciatica Degeneration of intervertebral disc of lumbar region with discogenic back pain and lower extremity pain Procedures MR Lumbar Spine w and wo IV Contrast Amna Zeng, [facility] [address] [place] [address] Phone: tel: fax: [facility] () [address] [place] [address] Phone: tel: fax: Referral ID Status Reason Start Date Expiration Date V isits Requested Visits Authorized [id number] Authorized 01/13/2025 07/15/2026 1 1 Reason for Visit * Reason Comments Consult * Consultation (Routine) - Closed Specialty Diagnoses / Procedures Referred By Contac t Referred To Contact Neurosurgery Diagnoses Other intervertebral disc degeneration, lumbar region with discogenic back pain only Spinal stenosis, lumbosacral region Prema Stewart, INVASIVE CARDIOLOGIST [address] [place] [address] Phone: tel: fax: Referral ID Status Reason Start Date Expiration Date V isits Requested Visits Authorized [id number] Closed Specialty Services Required 12/13/2024 06/14/2026 1 1 Encounter Details Date Type Department Care Team (Late st Contact Info) Description 01/13/2025 10:40 AM EDT Consult [place] [facility] [address] [place] [address] Amna Zeng, INVASIVE CARDIOLOGIST [address] [place] [address] Chronic bilateral low back pain with bilateral sciatica (Primary Dx); Degeneration of intervertebral disc of lumbar region with discogenic back pain and lower extremity pain; Smoker Social History Tobacco Use Types Packs/Day Years Used Date Smoking Tobacco: Every Day Cigarettes Smokeless Tobacco: Never Tobacco Cessation:Ready to Q uit: Not Asked; Counseling Given: Not Answered Alcohol Use Standard Drinks/Week Comments Never 0 (1 standard drink = 0.6 oz pur e alcohol) Comments Unknown Sex and Gender Information Value Date Recorded Sex Assigned at Not on file Legal Sex Female 8:28 PM EDT Gender Identity Not on file Sexual Orientation Not on file documented as of this encounter Last Filed Vital Signs Vital Sign Reading Time Taken Comments Blood Pressure 140/76 01/13/2025 10:45 AM EDT Pulse - - Temperature - - Respiratory Rate - - Oxygen Saturation - - Inhaled Oxygen Concentration - - Weight 86.2 kg (190 lb 0.6 oz) 01/13/2025 10:45 AM EDT Height 160 cm (5' 3 ) 01/13/2025 10:45 AM EDT Body Mass Index 33.66 01/13/2025 10:45 AM EDT documented in this encounter Miscellaneous Notes * Progress Notes - Amna Zeng, INVASIVE CARDIOLOGIST - 01/13/2025 10:40 AM EDT We had the pleasure of seeing your patient in our clinic today for Neurosurgical consultation. We personally reviewed 10 pages of new patient referral paperwork that was sent to the clinic. Chief Complaint Low back pain History Of Present Illness Betzaida Hansen is a 59 y.o. female presents to the neurosurgical clinic today for low back pain. The patient reports that she has had low back pain since 2002. She had a partial diskectomy in 2002 at L4-5, she states that this did help her radicular pain but she did have some residual back pain. She states in 2009, she reached to get something and then began to have worsening back pain. At that time, they did discuss a potential fusion however the patient wanted to avoid surgery. Since then, she reports that her pain has gotten worse. She states that she has a ???hot ???feeling to her buttocks. She is also complaining of bilateral lower extremity symptoms. She reports in the left leg, she has increased sensitivity to the anterior thigh. This has been since last year when she was pulling out garbage from the garbage can. In the right lower extremity, she is having pain down the posterior thigh that is worse with driving and pushing the break. She reports that her pain in her low back and legs is worse with walking and standing and is better with sitting. She states that she doeshave some numbness and tingling on the anterior thigh on the left. She does note some slight weakness in the right lower extremity, and states that her right knee will buckle at times. Six weeks ago,the patient reports that she had a very severe episode of pain that radiated up and down her back into her buttocks, this has improved since that. The patient was set to start physical therapy; however, the bad episode occurred and she was unableto begin. She has not had any recent epidural steroid injections. She has done steroids, NSAID therapy without appreciable benefit in her symptoms. She is an occasional smoker. 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 Past Medical History She has no past medical history on file. Surgical History She has a past surgical history that includes Cholecystectomy and Back surgery. Family History Family History[1] Social History She reports that she has been smoking cigarettes. She has never used smokeless tobacco. She reportsthat she does not drink alcohol and does not use drugs. Medications Current Medications[2] Allergies Patient has no known allergies. Review of Systems 14 point review of systems was performed and was negative except as noted per HPI. Physical Exam General: No acute distress. Patient is appropriate historian and cooperative throughout exam. Well nourished, well groomed. Psych: Normal affect Head: Unremarkable Eyes:Unremarkable ENT: Unremarkable CV: Regular rate Chest: No wheezing, coughing. No increased effort noted. Skin: Intact. Vasc: Warm extremities Musc: Normal gait, no weakness or spasticity. Good spinal alignment without focal tenderness to palpation. Symmetrical extremity tone and bulk, no atrophy noted. Neurologic exam: Alert and oriented x3. Appropriate memory, attention span, and insight. . Normal coordination noted. Strength 5/5 bilaterally in upper and lower extremities. No tremor noted. Biceps,triceps, brachioradialis, patellar, achilles reflexes symmetric and 2+ bilaterally. Sensation, including light touch, intact bilaterally. Negative Yanick's bilaterally. No clonus noted bilaterally.Increased sensitivity to left anterior thigh. Negative straight leg raise test bilaterally. Negative Yannick's test bilaterally. Last Recorded Vitals Visit Vitals BP (!) 140/76 Ht 1.6 m (5' 3 ) Wt 86.2 kg (190 lb 0.6 oz) BMI 33.66 kg/m?? Smoking Status Every Day BSA 1.96 m?? Labs No lab exists for component: ALB Imaging I personally reviewed and independently interpreted CT of the lumbar spine from December 03, 2024. Imaging demonstrates multiple levels of degenerative changes throughout the lumbar spine. No acute fracture noted. Assessment and Plan Betzaida Hansen is a 59 y.o. female presents to the neurosurgical clinic today for low back pain. Imaging was reviewed and noted above. Multiple degenerative changes are noted throughout the lumbar spine. The patient is complaining of symptoms that are consistent with neurogenic claudication. Given this, I would like an MRI of the lumbar spine to rule out any spinal canal compression that could be causing the patient's symptoms. In addition, she was given a back booklet with specific exercises for core and back strengthening to complete. Once the MRI is scheduled, the patient will contactme back at which time we will have her follow up in my clinic for further plan of care and review of MRI. The patient was given the opportunity to ask questions all of which were answered to their satisfaction and is agreeable to the plan of care.Discussed the effects of tobacco smoke on overall health as well as back health and its contribution to pain. Recommended tobacco cessation and this coun seling session lasted approximately 3-5 minutes. This note was dictated using voice to text software and may contain minor errors Donna Zeng APRN Division of Neurosurgery [facility] [1] No family history on file. [2] Current Outpatient Medications Medication Sig Dispense Refill atorvastatin (Lipitor) 40 MG tablet Take 1 tablet by mouth daily. gabapentin (Neurontin) 600 MG tablet GNP D 1000 25 MCG (1000 UT) capsule Take 1 capsule by mouth daily. methocarbamol (Robaxin) 750 MG tablet TAKE ONE TABLET BY MOUTH EVERY 6 HOURS NEEDED FOR MUSCLE SPASMS MAY CAUSE DROWSINESS oxyCODONE-acetaminophen (Percocet) 10-325 MG tablet potassium chloride CR (Klor-Con) 10 MEQ ER tablet Take 1 tablet by mouth daily. No current facility-administered medications for this visit. documented in this encounter Plan of Treatment Scheduled Orders Name Type Priority Associated Diagnoses Orde r Schedule XR Lumbar Spine 4+ Views w Flexion Extension Imaging Routine Chronic bilateral low back pain with bilateral sciatica Degeneration of intervertebral disc of lumbar region with discogenic back pain and lower extremity pain Expected: 01/13/2025 (Approximate), Expires: 07/16/2026 MR Lumbar Spine w and wo IV Contrast Imaging Routine Chronic bilateral low back pain with bilateral sciatica Degeneration of intervertebral disc of lumbar region with discogenic back pain and lower extremity pain 1 Occurrences starting 01/13/2025 until 07/17/2026 documented as of this encounter Visit Diagnoses Diagnosis Chronic bilateral low back pain with bilateral sciatica- Primary Degeneration of intervertebral disc of lumbar region with discogenic back pain and lower extremity pain Smoker Tobacco use disorder documented in this encounter Additional Health Concerns Assessment Noted Time A fall risk assessment has been complete d for the patient 01/13/2025 10:44 AM EDT A Body Mass Index follow-up plan has been documented for the patient 01/13/2025 4:46 PM EDT documented as of this encounter
--- OUTSIDE RECORDS SUMMARY | 2025-01-21 14:47 | XMS_ITS | Encounter Summary ---
Author Organization Healthcare Address [address] [place] [address] Care Team Providers Care Material Worker Name Role Phone Unavailable Primary Care Provider Unavailabl e Encounter Details Date Type Department Care Team ([facility] st Contact Info) Description 12/03/2024 Orders Only External Location [address] [place] [address] Provider, External Social History Tobacco Use Types Packs/Day Years Used Date Smoking Tobacco: Never Assessed Comments Unknown Sex and Gender Information Value Date Recorded Sex Assigned at Not on file Legal Sex Female 8:28 PM EDT Gender Identity Not on file Sexual Orientation Not on file documented as of this encounter Plan of Treatment Not on file documented as of this encounter Procedures Procedure Name Priority Date/Time Associated Diagnosis Comments CT NEURO OUTSIDE IMAGES 12/03/2024 1:29 PM EDT documented in this encounter Results * CT NEURO OUTSIDE IMAGES (12/03/2024 1:29 PM EDT) Anatomical Region Laterality Modality Computed Tomogra phy 12/03/2024 1:29 PM EDT us External Provider IMG CT PROCEDURES Final Result documented in this encounter Visit Diagnoses Not on filedocumented in this encounter
--- OUTSIDE RECORDS SUMMARY | 2025-01-21 14:47 | XMS_ITS | Encounter Summary ---
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 And Creasing Press Operator Name Role Phone Unavailable Primary Care Provider Unavailabl e Encounter Details Date Type Department Care Team (Latest Contact Info) Description 01/13/2025 Travel Social History Tobacco Use Types Packs/Day Years Used Date Smoking Tobacco: Every Day Cigarettes Smokeless Tobacco: Never Alcohol Use Standard Drinks/Week Comments Never 0 (1 standard drink = 0.6 oz pur e alcohol) Comments Unknown Sex and Gender Information Value Date Recorded Sex Assigned at Not on file Legal Sex Female 8:28 PM EDT Gender Identity Not on file Sexual Orientation Not on file documented as of this encounter Plan of Treatment Not on file documented as of this encounter Visit Diagnoses Not on filedocumented in this encounter Additional Health Concerns Assessment Noted Time A fall risk assessment has been complete d for the patient 01/13/2025 10:44 AM EDT A Body Mass Index follow-up plan has been documented for the patient 01/13/2025 4:46 PM EDT documented as of this encounter
--- NOTE | 2025-01-21 14:48 | MR_ITS ---
PROCEDURE INFORMATION: Exam: MR Lumbar Spine Without and With Contrast Exam date and time: 01/21/2025 3:36 PM Age: 59 years old Clinical indication: Low back pain; Additional info: Chronic agustín lbp w agustín sciatica TECHNIQUE: Imaging protocol: Magnetic resonance imaging of the lumbar spine without and with contrast. Contrast material: PROHANCE; Contrast volume: 18 ml; Contrast route: IV; COMPARISON: CT LUMBAR SPINE WO CON 12/03/2024 1:29 PM FINDINGS: Bones/joints: There is preservation of vertebral alignment. There is preservation of vertebral body heights. No marrow replacing process. Spinal cord: Conus medullaris and cauda equina nerve roots are unremarkable L1-L2: No significant disc bulge or herniation. No severe spinal canal stenosis. No significant neural foraminal narrowing. L2-L3: No significant disc bulge or herniation. No severe spinal canal stenosis. No significant neural foraminal narrowing. L3-L4: No significant disc bulge or herniation. No severe spinal canal stenosis. No significant neural foraminal narrowing. L4-L5: Diffuse disc bulge and facet arthropathy noted. No significant spinal canal stenosis. There is mild to moderate bilateral neural foraminal narrowing. L5-S1: Diffuse disc bulge and facet arthropathy noted. No significant spinal canal stenosis. There is mild bilateral neural foraminal narrowing. Soft tissues: Unremarkable. IMPRESSION: Mild multilevel degenerative changes more pronounced at L4-L5 contributing to [id number] bilateral neural foraminal narrowing
--- OUTSIDE RECORDS SUMMARY | 2025-01-21 14:48 | XMS_ITS | Clinical Summary ---
Author Organization Healthcare Address [address] [place] [address] Care Team Providers Care Line Lead Name Role Phone Unavailable Primary Care Provider Unavailabl e Allergies No known active allergies Medications atorvastatin (Lipitor) 40 MG tablet Take 1 tablet by mouth daily. 5 Active GNP D 1000 25 MCG (1000 UT) capsule Take 1 capsule by mouth daily. 5 Active gabapentin (Neurontin) 600 MG tablet 5 Active methocarbamol (Robaxin) 750 MG tablet TAKE ONE TABLET BY MOUTH EVERY 6 HOURS NEEDED FOR MUSCLE SPASMS MAY CAUSE DROWSINESS 5 Active oxyCODONE-aceta minophen (Percocet) 10-325 MG tablet 5 Active potassium chloride CR (Klor-Con) 10 MEQ ER tablet Take 1 tablet by mouth daily. 5 Active Active Problems Problem Noted Date Diagnosed Date Cirrhosis 05/03/2024 Ventral hernia 05/03/2024 Ocular hypertension, bilateral 05/03/2024 Anatomical narrow angle of both eyes 05/03/2024 Encounters Date Type Department Care Team Description 01/13/2025 10:40 AM EDT Consult MD Clinic [facility] [address] [place] [address] Amna Zeng, [facility] Chronic bilateral low back pain with bilateral sciatica (Primary Dx); Degeneration of intervertebral disc of lumbar region with discogenic back pain and lower extremity pain; Smoker 01/13/2025 Travel 12/03/2024 Orders Only External Location [address] [place] [address] Provider, External from Last 3 Months Social History Tobacco Use Types Packs/Day Years [...] on file Sexual Orientation Not on file Last Filed Vital Signs Vital Sign Reading [...] Mass Index 33.66 01/13/2025 10:45 AM EDT Plan of Treatment Health Maintenance Due Date Last Done Comments [facility]-Depression Screening 1965 [facility]-HIV Screening 1967 [facility]-Hepatitis C Screening 1967 [facility]-/Child/Adol SDOH Screenings 1967 [facility]- SDOH Screenings 1985 [facility]-Adult SDOH Screenings 1985 [facility]-DTaP,Tdap,and Td Vaccine s (1 - Tdap) 1986 [facility]-Hepatitis A Vaccines (1 of 2 - Risk 2-dose series) 1986 [facility]-Hepatitis B Vaccines (1 of 3 - 19+ 3-dose series) 1986 [facility]-Pneumococcal Vaccine: 50 + Years (1 of 2 - PCV) 1986 [facility]-Pap Smear 04/24/1996 04/24/1993, 01/05/1993 [facility]-Cervical Cancer Screening 04/24/1998 [facility]-HPV/Cotest 04/24/1998 04/24/1993, 01/05/1993 CT Colonography 2012 Colonoscopy 2012 FIT-DNA 2012 FIT 2012 FOBT 2012 Sigmoidoscopy 2012 [facility]-Colorectal Cancer Screening 2012 [facility]-Breast Cancer Screening 2017 [facility]-Zoster Vaccines (1 of 2) 2017 [id number] Vaccine (3 - season) 2024 03/03/2021, 02/04/2021 [facility]-Influenza Vaccine (#1) 2025 05/13/2020 [facility]-Obesity Intervention Completed 01/13/2025 HPV Vaccines Aged Out No longer eligi ble based on patient's age to complete this topic [facility]-HIB Vaccines Aged Out No longer e ligible based on patient's age to complete this topic [facility]-IPV Vaccines Aged Out No longer e ligible based on patient's age to complete this topic [facility]-Rotavirus Vaccines Aged Out No lo nger eligible based on patient's age to complete this topic Procedures Procedure Name Priority Date/Time Associated Diagnosis Comments CT NEURO OUTSIDE IMAGES 12/03/2024 1:29 PM EDT CYTO DATA CONVERSION Routine 04/24/1993 12:00 AM EDT from Last 3 Months or Most Recently Relevant to Health Maintenance Results * CT NEURO OUTSIDE IMAGES (12/03/2024 1:29 PM EDT) Anatomical Region Laterality Modality Computed Tomogra phy 12/03/2024 1:29 PM EDT us External Provider IMG CT PROCEDURES Final Result * Cytology (04/24/1993 12:00 AM EDT) 04/24/1993 04/25/1993 Narrative SUNQUEST - 04/30/1993 12:00 AM EDT [facility] MR #: [id number] [facility] [address], [place] [address] 1965 (Age: 27) FW Collect Date: 04/24/1993 00:00 Receipt Date: 04/25/1993 00:00 Page 1 DEPARTMENT OF PATHOLOGY AND LABORATORY MEDICINE CYTOPATHOLOGY REPORT Email: [email or web address] [phone] * Converted Case * This report may not match the original report format ATTENDING MD/Practitioner: Kuldip Nava MD Service: AUTOMATIC GRINDING MACHINE OPERATOR Location: Reported: 04/30/1993 00:00 Collected: 04/24/1993 00:00 INTERPRETATION CERVICAL SCRAPE/ENDOCERVICAL BRUSH WITHIN NORMAL LIMITS. SATISFACTORY FOR INTERPRETATION. Electronically Signed Out PRIYA Rocha (ASCP) Dianne Campbell MD Cervical cytology is a screening test primarily for squamous cancers and precursors and has associated false negative and positive results. New technologies such as liquid based sampling may decrease but will not eliminate all false negative results. Regular screening and follow-up of unexplained clinical signs and symptoms are recommended to minimize false negative results. Please see the ASCCP website (www.asccp.org) for followup recommendations. If HPV testing was requested, correlation with the results is suggested (please call Microbiology at [phone] for results). CLINICAL INFORMATION: Menstrual History: {Not Provided} Date of Last Menstrual Period: {Not Provided} SPECIMEN DESCRIPTION: A: CERVICAL/VAGINAL SMEAR, PAP ICD: F: {Not Entered} SNOMED CODES: 1; [id number] [id number] In cases where a pathologist has signed out the report, the service has been rendered in part by a resident. The signing pathologist has performed and is responsible for the reported pathologic evaluation. us Historical Provider MD LAB PATHOLOGY ORDERABLES Final Result SUNQUEST from Last 3 Months or Most Recently Relevant to Health Maintenance Insurance [employer]
[2025-01-21] MEDS: SODIUM CHLORIDE 0.9% 10ML SYR (RAD ONLY) 10 ML IV (16:22)
[2025-01-21] MEDS: GADOTERIDOL INJ 20ML SYRINGE 18 ML IV (16:22)
== END 2025-01-21 23:59 | disposition home or self-care (01) ==
LOC: RAD 14:45
PROVIDERS: PCP Family Medicine; Visit Provider Nurse Practitioner Family
DX: M47.26 Other spondylosis with radiculopathy, lumbar region (principal); M99.73 Connective tissue and disc stenosis of intervertebral foramina of lumbar region
CPT/HCPCS: 72158; A9576

== ENCOUNTER 2025-06-30 13:59 | Outpatient (CLI) | payer BC, SELFPAY ==
[2025-06-30 21:18] LABS: Alanine Aminotransferase 48 U/L (12-78); Albumin Level 4.7 g/dl (3.5-5.0); Albumin/Globulin Ratio 1.7 (1.1-1.8); Alkaline Phosphatase 87 U/L (38-126); Anion Gap 11.8 mEq/L (5-15); Aspartate Amino Transferase 83 U/L (14-36); Bilirubin,Total 0.4 mg/dl (0.2-1.3); Blood Urea Nitrogen 15 mg/dl (7-17); Calcium 10.0 mg/dl (8.4-10.2); Carbon Dioxide 29 mmol/L (22.0-30.0); Chloride 100 mmol/L (98-107); Cholesterol 273 mg/dl (140-200); Creatinine,Serum 1.00 mg/dl (0.52-1.04); Estimated Glomerular Filt Rate 57 ml/min (>60); GFR (African American) 69 ML/MIN (>60); Globulin 2.8 g/dL (1.3-3.2); Glucose 131 mg/dl (74-100); HDL Cholesterol 57 mg/dl (40-60); Potassium 3.8 mmoL/L (3.5-5.1); Sodium 137 mmol/L (136-145); Total Protein,Serum 7.5 g/dl (6.3-8.2)
[2025-06-30 21:25] LABS: Triglycerides 441 mg/dl (30-150)
--- OUTSIDE RECORDS SUMMARY | 2025-07-01 10:48 | XMS_ITS | Clinical Summary ---
Author Organization Healthcare Address [address] [place] [address] Care Team Providers Care Nitric Acid Concentrator Operator Name Role Phone Unavailable Primary Care [...] Anatomical narrow angle of both eyes 05/03/2024 Social History Tobacco Use Types Packs/Day Years [...] Date Last Done Comments [facility]-Depression Screening 1967 [facility]-/Child/Adol SDOH Screenings 1967 [facility]- SDOH Screenings 1985 [facility]-Adult SDOH Screenings 1985 [facility]-DTaP,Tdap,and Td Vaccine s (1 - Tdap) 1986 [facility]-Hepatitis B Vaccines (1 of 3 - 19+ 3-dose series) 1986 [facility]-Pap Smear 04/24/1996 04/24/1993, 01/05/1993 [facility]-Cervical Cancer Screening 04/24/1998 [facility]-HPV/Cotest 04/24/1998 04/24/1993, 01/05/1993 CT Colonography 2012 Colonoscopy 2012 FIT-DNA 2012 FIT 2012 FOBT 2012 Sigmoidoscopy 2012 [facility]-Colorectal Cancer Screening 2012 [facility]-Pneumococcal Vaccine: 50 + Years (1 of 1 - PCV) 2017 [facility]-Zoster Vaccines (1 of 2) 2017 [id number] Vaccine (3 - season) 2025 03/03/2021, 02/04/2021 [facility]-Influenza Vaccine (#1) 2025 05/13/2020 HPV Vaccines (No Doses Required) Completed [facility]-HIB Vaccines Aged Out No longer e ligible based on patient's age to complete this topic [facility]-Hepatitis A Vaccines Aged Out No longer eligible based on patient's age to complete this topic [facility]-IPV Vaccines Aged Out No longer e ligible based on patient's age to complete this topic [facility]-Rotavirus Vaccines Aged Out No lo nger eligible based on patient's age to complete this topic Procedures Procedure Name Priority Date/Time Associated Diagnosis Comments CYTO DATA CONVERSION Routine 04/24/1993 12:00 AM EDT from Last 3 Months or Most Recently Relevant to Health Maintenance Results * Cytology (04/24/1993 12:00 AM EDT) 04/24/1993 04/25/1993 Narrative SUNQUEST - 04/30/1993 12:00 AM EDT [facility] MR #: [id number] [facility] [address] [place], [place] [address] 1965 (Age: 27) FW Collect Date: 04/24/1993 00:00 Receipt Date: 04/25/1993 00:00 Page 1 DEPARTMENT OF PATHOLOGY AND LABORATORY MEDICINE CYTOPATHOLOGY REPORT Email: [email or web address] [phone] * Converted Case * This report may not match the original report format ATTENDING MD/Practitioner: Kuldip Nava MD Service: DOBIE MAN Location: Reported: 04/30/1993 00:00 Collected: 04/24/1993 00:00 [...] results is suggested (please call Microbiology at [phone] for results). CLINICAL INFORMATION: Menstrual History: {Not Provided} Date of Last Menstrual Period: {Not Provided} SPECIMEN DESCRIPTION: A: CERVICAL/VAGINAL SMEAR, PAP ICD: F: {Not Entered} SNOMED CODES: 1; I2I396 [id number] [id number] In cases where a pathologist has signed out the report, the service has been rendered in part by a resident. The signing pathologist has performed and is responsible for the reported pathologic evaluation. us Historical Provider LAB PATHOLOGY ORDERABLES Fin al Result SUNQUEST from Last 3 Months or Most Recently Relevant to Health Maintenance Insurance [facility]
== END 2025-06-30 23:59 | disposition home or self-care (01) ==
LOC: LAB.DROPOF 07-01 10:46
PROVIDERS: PCP Student in an Organized Health Care Education/Training Program; Visit Provider Family Medicine
DX: E78.5 Hyperlipidemia, unspecified (principal); R74.8 Abnormal levels of other serum enzymes
CPT/HCPCS: 80053; 80061